=== PATIENT | male | born 1950 | race Caucasian/White ===

== ENCOUNTER → 2016-07-16 | Outpatient (CLI) | payer MEDICARE, MEDICAID ==
[~2016-07-16] MED LIST: AMLO5 PO; BACL10TA PO; HYDR-3535 PO; XANA1TAB6 PO
[2016-07-16 11:48] LABS: BICARBONATE 26.9 MEQ/L (21.0-32.0); POTASSIUM 4.2 MEQ/L (3.5-5.1)
== END ==
LOC: CLAB 10:37
PROVIDERS: ATTEND Urology
DX: N26.1 Atrophy of kidney (terminal) (principal)
CPT/HCPCS: 36415; 80048

== ENCOUNTER 2017-06-28 03:03 | Inpatient (IN) | payer MEDICARE, MEDICAID ==
[~2017-06-28] VITALS: Ht 177.8 cm; Wt 61.2 kg
[~2017-06-28 03:03] MED LIST changes: +ALPR1TAB3 PO; -AMLO5 PO; +AMLO5TAB2 PO; -XANA1TAB6 PO
[2017-06-28] MEDS ORDERED: SODIUM CHLOR 0.9% 1000 ML INJ 1,000 ML IV ONE (03:10)
[2017-06-28] MEDS ORDERED: SODIUM CHLOR 0.9% 1000 ML INJ 800 ML IV ONE (03:10)
[2017-06-28 03:11] VITALS: BP 164/98; PULSE 113; RESP 16; TEMP 99.8; O2SAT 96
[2017-06-28] MEDS ORDERED: VANCOMYCIN INJ 1,000 MG in SODIUM CHLOR 0.9% 250 ML INJ 250 ML IV ONE (03:15)
[2017-06-28] MEDS ORDERED: PIPERACIL-TAZO 3.375 GM PREMIX 50 ML IV ONE (03:15)
[2017-06-28] MEDS ORDERED: ACETAMINOPHEN 325 MG TAB PO ONE (03:15)
--- NOTE | 2017-06-28 03:24 | PD ---
HPI Chief Complaint: Chest Pain Time Seen by Provider: 03:10 Travel History International Travel<30 days: No Contact w/Intl Traveler<30days: No Traveled to known affect area: No History of Present Illness HPI 67-year-old male with history of bladder cancer status post neobladder procedure in 2006, tobaccoism, brought in by ambulance from home for evaluation of chest pain, abdominal pain, generalized malaise. The patient has had substernal and right-sided chest discomfort as well as right upper quadrant abdominal pain for about a month. He has been taking Excedrin for this pain, taking about 6-8 pills daily. Today his pain worsened. EMS noted to patient to have a fever as well as tachycardia with a jaundice appearance. The patient reports having had a cough productive of yellowish sputum with occasional hemoptysis over the last month. Chest and abdominal pain described as sharp, constant, moderate, intermittently worse at times, worse with movements and inspiration. No dyspnea. PFSH Past Medical History Blood Disorders: No Cancer: Yes (BLADDER CANCER, PROSTATE CA) Cardiovascular Problems: No Chemotherapy: No Diminished Hearing: No Endocrine: No Hypertension: Yes Neurologic: No Psychiatric: No Reproductive: No Respiratory: No Radiation Therapy: No Influenza Vaccination: No Past Surgical History AICD: No Arteriovenous Shunt: No Ear Surgery: No Endocrine Surgery: No Eye Surgery: No Genitourinary Surgery: Yes (BLADDER TUMOR REMOVED, NEOBLADDER) Gynecologic Surgery: No Insulin Pump: No Oral Surgery: Yes Pacemaker: No Prostatectomy: Yes Tonsillectomy: Yes Social History Alcohol Use: No Tobacco Use: Yes (1 PPMTH) Substance Use: No Allergies-Medications (Allergen,Severity, Reaction): Coded Allergies: morphine (Unverified Allergy, Severe, swelling, 06/28/17) Reported Meds & Prescriptions Reported Meds & Active Scripts Active Reported Amlodipine (Amlodipine Besylate) 5 Mg Tab 5 Mg PO DAILY Alprazolam 1 Mg Tab 1 Mg PO HS PRN Review of Systems Except as stated in HPI: all other systems reviewed are Neg Physical Exam Narrative GENERAL: Well-developed, thin, awake, alert, no apparent distress. SKIN: Focused skin assessment warm/dry. HEAD: Atraumatic. Normocephalic. EYES: Pupils equal and round. No scleral icterus. No injection or drainage. ENT: Mucous membranes pink and dry. NECK: Trachea midline. No JVD. CARDIOVASCULAR: Tachycardic, rate 114, regular. Distal pulses brisk and equal bilaterally. RESPIRATORY: No accessory muscle use. Clear to auscultation. Breath sounds equal bilaterally. GASTROINTESTINAL: Abdomen soft, nondistended. Moderate diffuse tenderness without peritoneal signs. Normal bowel sounds. MUSCULOSKELETAL: No obvious deformities. No clubbing. No cyanosis. No edema. NEUROLOGICAL: Awake and alert. No obvious cranial nerve deficits. Motor grossly within normal limits. Normal speech. PSYCHIATRIC: Appropriate mood and affect; insight and judgment normal. Data Data Last Documented VS Vital Signs Date Time Temp Pulse Resp B/P (MAP) Pulse Ox O2 Delivery O2 Flow Rate FiO2 06/28/17 03:11 99.8 113 16 164/98 (120) 96 Orders Orders Sepsis Workup Initiated (06/28/17 ) Complete Blood Count With Diff (06/28/17 03:10) Comprehensive Metabolic Panel (06/28/17 03:10) Prothrombin Time / Inr (Pt) (06/28/17 03:10) Act Partial Throm Time (Ptt) (06/28/17 03:10) Lactic Acid Sepsis Protocol (06/28/17 03:10) Lipase (06/28/17 03:10) Ckmb (Isoenzyme) Profile (06/28/17 03:10) Troponin I (06/28/17 03:10) Urinalysis - C+S If Indicated (06/28/17 03:10) Influenzae A/B Antigen (06/28/17 03:10) Blood Culture (06/28/17 03:10) Chest, Single Ap (06/28/17 03:10) Ecg Monitoring (06/28/17 03:10) Iv Access Insert/Monitor (06/28/17 03:10) Oximetry (06/28/17 03:10) Sodium Chlor 0.9% 1000 Ml Inj (Ns 1000 M (06/28/17 03:10) Sodium Chlor 0.9% 1000 Ml Inj (Ns 1000 M (06/28/17 03:10) Vancomycin Inj (Vancomycin Inj) (06/28/17 03:15) Piperacil-Tazo 3.375 Gm Premix (Zosyn 3. (06/28/17 03:15) Acetaminophen (Tylenol) (06/28/17 03:15) Ct Pulmonary Angiogram (06/28/17 ) Ct Abd/Pel W Iv Contrast(Rout) (06/28/17 ) Iodixanol 320 Inj (Rad Ct) (Visipaque 32 (06/28/17 04:56) Labs Laboratory Tests Test 06/28/17 03:15 White Blood Count 9.8 TH/MM3 Red Blood Count 4.06 MIL/MM3 Hemoglobin 12.7 GM/DL Hematocrit 37.3 % Mean Corpuscular Volume 91.7 FL Mean Corpuscular Hemoglobin 31.2 PG Mean Corpuscular Hemoglobin Concent 34.1 % Red Cell Distribution Width 13.0 % Platelet Count 190 TH/MM3 Mean Platelet Volume 9.4 FL Neutrophils (%) (Auto) 73.3 % Lymphocytes (%) (Auto) 12.3 % Monocytes (%) (Auto) 13.1 % Eosinophils (%) (Auto) 0.1 % Basophils (%) (Auto) 1.2 % Neutrophils # (Auto) 7.2 TH/MM3 Lymphocytes # (Auto) 1.2 TH/MM3 Monocytes # (Auto) 1.3 TH/MM3 Eosinophils # (Auto) 0.0 TH/MM3 Basophils # (Auto) 0.1 TH/MM3 CBC Comment DIFF FINAL Differential Comment Prothrombin Time 11.4 SEC Prothromb Time International Ratio 1.1 RATIO Activated Partial Thromboplast Time 39.6 SEC Blood Urea Nitrogen 18 MG/DL Creatinine 1.48 MG/DL Random Glucose 97 MG/DL Total Protein 8.8 GM/DL Albumin 2.6 GM/DL Calcium Level 8.4 MG/DL Alkaline Phosphatase 57 U/L Aspartate Amino Transf (AST/SGOT) 37 U/L Alanine Aminotransferase (ALT/SGPT) 27 U/L Total Bilirubin 2.5 MG/DL Sodium Level 136 MEQ/L Potassium Level 4.5 MEQ/L Chloride Level 104 MEQ/L Carbon Dioxide Level 24.7 MEQ/L Anion Gap 7 MEQ/L Estimat Glomerular Filtration Rate 48 ML/MIN Lactic Acid Level 1.2 mmol/L Total Creatine Kinase 53 U/L Troponin I LESS THAN 0.02 NG/ML Lipase 165 U/L MDM Medical Decision Making Medical Screen Exam Complete: Yes Emergency Medical Condition: Yes Interpretation(s) EKG: Sinus, rate 114, normal axis, normal intervals, no acute ischemic abnormality. Differential Diagnosis Sepsis, pneumonia, PE, cholangitis, hepatitis, pancreatitis, PE, ACS, cancer Narrative Course Initial vital signs show heart rate 113, blood pressure 164/90, pulse ox 96% on room air, oral temperature 99.8F. Sepsis workup initiated upon arrival to the emergency department and the patient was empirically given IV vancomycin and IV Zosyn. CBC: WBC 9.8, hemoglobin 12.7, hematocrit 37.3, platelets 190, neutrophils 73%. CMP is remarkable for creatinine 1.48, GFR 48, T bili 2.5. Cardiac enzymes are negative. Lactic acid is 1.2. Chest x-ray: Right upper lobe pulmonary consolidation. CT pulmonary angiogram: CONCLUSION: 1. Large central right lung mass/right hilar mass. Finding is highly suspicious for malignancy. The area is likely amenable to CT-guided biopsy. The mass blends with adjacent pulmonary parenchymal consolidation. 2. Markedly enlarged subcarinal lymph node. Enlarged hilar lymph nodes on the right confluent with the large lung mass. 3. No evidence of pulmonary embolus. CT abdomen pelvis: CONCLUSION: 1. Atrophic right kidney with renal calculus and moderate diffuse right hydroureter/right hydronephrosis. Left kidney within normal limits. 2. Status post cystectomy with neobladder seen in the pelvis. 3. Cholelithiasis. The patient was made aware of all findings and provided a copy of his CT reports. He will be admitted for further treatment and evaluation of sepsis, pneumonia, lung mass. Case discussed with hospitalist Dr. Vivar who will admit the patient to her service. Diagnosis Primary Impression: Sepsis Qualified Codes: A41.9 - Sepsis, unspecified organism Additional Impressions: Pneumonia Qualified Codes: J18.1 - Lobar pneumonia, unspecified organism Lung mass Admitting Information Admitting Physician Requests: Admit Jl Chang MD Jun 28, 2017 03:24
--- NOTE | 2017-06-28 03:36 | RADRPT ---
EXAM DATE/TIME: 06/28/2017 03:12 [facility] COMPARISON: No previous studies available for comparison. INDICATIONS : Fever and chest pain. MEDICAL HISTORY : Carcinoma, bladder. SURGICAL HISTORY : None. ENCOUNTER: Initial ACUITY: 1 day PAIN SCORE: 7/10 LOCATION: Bilateral chest FINDINGS: 2 AP views of the chest. Moderate-sized confluent opacity in the right upper lung indicating pulmonar y consolidation. Lungs otherwise clear. Cardiomediastinal silhouette within normal width. No evidence of pleural effusion or pneumothorax. CONCLUSION: Right upper lobe pulmonary consolidation. Recommend radiographic followup to resolution. Fransico Johnston MD on June 28, 2017 at 3:34 Board Certified Radiologist. This report was verified electronically.
[2017-06-28 04:03] LABS: AUTOMATED NEUTROPHIL # 7.2 TH/MM3 (1.8-7.7); BASOPHIL # 0.1 TH/MM3 (0-0.2); BASOPHIL % 1.2 % (0.0-2.0); EOSINOPHIL % 0.1 % (0.0-4.0); HEMATOCRIT 37.3 % (39.0-51.0); HEMOGLOBIN 12.7 GM/DL (13.0-17.0); LYMPH % 12.3 % (9.0-44.0); LYMPHOCYTE # 1.2 TH/MM3 (1.0-4.8); MEAN CELL VOLUME 91.7 FL (80.0-100.0); MEAN CORPUSCULAR HEMOGLOBIN 31.2 PG (27.0-34.0); MEAN CORPUSCULAR HGB CONC 34.1 % (32.0-36.0); MEAN PLATELET VOLUME 9.4 FL (7.0-11.0); MONO % 13.1 % (0.0-8.0); MONOCYTE # 1.3 TH/MM3 (0-0.9); NEUT % 73.3 % (16.0-70.0); PLATELET COUNT 190 TH/MM3 (150-450); RED BLOOD COUNT 4.06 MIL/MM3 (4.50-5.90); WHITE BLOOD COUNT 9.8 TH/MM3 (4.0-11.0)
[2017-06-28 04:07] LABS: INTERNATIONAL NORMALIZED RATIO 1.1 RATIO; PROTHROMBIN TIME - PATIENT 11.4 SEC (9.8-11.6)
[2017-06-28 04:21] LABS: ALBUMIN 2.6 GM/DL (3.4-5.0); ALKALINE PHOSPHATASE 57 U/L (45-117); ALT (GPT) 27 U/L (12-78); AST (GOT) 37 U/L (15-37); BICARBONATE 24.7 MEQ/L (21.0-32.0); BLOOD UREA NITROGEN 18 MG/DL (7-18); CALCIUM 8.4 MG/DL (8.5-10.1); CHLORIDE 104 MEQ/L (98-107); CREATININE 1.48 MG/DL (0.60-1.30); GLOMERULAR FILTRATION RATE 48 ML/MIN (>89); GLUCOSE,RANDOM 97 MG/DL (74-106); SODIUM (NA) 136 MEQ/L (136-145); TOTAL BILIRUBIN ADULT 2.5 MG/DL (0.2-1.0); TOTAL PROTEIN 8.8 GM/DL (6.4-8.2); TROPONIN I LESS THAN 0.02 NG/ML (0.02-0.05)
[2017-06-28] MEDS ORDERED: IODIXANOL 320 MG/ML 10 ML VIAL (for Rad CT) IVCONTRAST ONE (04:56)
--- NOTE | 2017-06-28 05:10 | RADRPT ---
EXAM DATE/TIME: 06/28/2017 04:40 [facility] COMPARISON: CHEST SINGLE AP, June 28, 2017, 3:12. INDICATIONS : Chest pain. IV CONTRAST: 100 cc Visipaque (iodixanol) IV ; Cumulative dose for multiple exams. RADIATION DOSE: 15.63 CTDIvol (mGy) MEDICAL HISTORY : Hypertension. Carcinoma, bladder. Carcinoma, prostate. SURGICAL HISTORY : Cholecystectomy. Cystectomy ENCOUNTER: Initial ACUITY: 1 month PAIN SCALE: 6/10 LOCATION: Bilateral chest TECHNIQUE: Volumetric scanning of the chest was performed using a pulmonary embolism protocol MIP images were re constructed. Using automated exposure control and adjustment of the mA and/or kV according to patien t size, radiation dose was kept as low as reasonably achievable to obtain optimal diagnostic quality images. DICOM format image data is available electronically for review and comparison. Follow-up recommendations for detected pulmonary nodules are based at a minimum on nodule size and pa tient risk factors according to Fleischner Society Guidelines. FINDINGS: PULMONARY ARTERIES: No filling defects are seen in the pulmonary arteries through the segmental level. LUNGS: Central right lung/perihilar mass. The margins of the mass are poorly defined as it blends with adjac ent low density pulmonary consolidation. The combined density measures 6.5 x 6.4 cm. Adjacent right m id to upper lung groundglass opacity noted. Mild bilateral pulmonary parenchymal emphysema. Left lung clear. PLEURAE: There is no pleural thickening or pleural effusion. MEDIASTINUM: Enlarged right hilar lymph nodes confluent with the right lung mass. Enlarged subcarinal lymph node m easuring 4.8 x 3.6 cm. MUSCULOSKELETAL: Within normal limits for patient age. MISCELLANEOUS: Atrophic right kidney. CONCLUSION: 1. Large central right lung mass/right hilar mass. Finding is highly suspicious for malignancy. The a joel is likely amenable to CT-guided biopsy. The mass blends with adjacent pulmonary parenchymal conso lidation. 2. Markedly enlarged subcarinal lymph node. Enlarged hilar lymph nodes on the right confluent with th e large lung mass. 3. No evidence of pulmonary embolus. Fransico Johnston MD on June 28, 2017 at 5:00 Board Certified Radiologist. This report was verified electronically.
--- NOTE | 2017-06-28 05:17 | RADRPT ---
EXAM DATE/TIME: 06/28/2017 04:40 [facility] COMPARISON: No previous studies available for comparison. INDICATIONS : Right upper quadrant pain. IV CONTRAST: 100 cc Visipaque (iodixanol) IV ; Cumulative dose for multiple exams. ORAL CONTRAST: No oral contrast ingested. RADIATION DOSE: 9.97 CTDIvol (mGy) MEDICAL HISTORY : Hypertension. Carcinoma, bladder. Carcinoma, prostate. SURGICAL HISTORY : Cholecystectomy. Cystectomy ENCOUNTER: Initial ACUITY: 1 month PAIN SCALE: 6/10 LOCATION: Right upper quadrant TECHNIQUE: Volumetric scanning of the abdomen and pelvis was performed. Using automated exposure control and ad justment of the mA and/or kV according to patient size, radiation dose was kept as low as reasonably achievable to obtain optimal diagnostic quality images. DICOM format image data is available electro nically for review and comparison. FINDINGS: LOWER LUNGS: The visualized lower lungs are clear. LIVER: Multiple calcified gallstones. No pericholecystic inflammatory changes. Nonspecific enhancing gallbla dder wall diffusely. No gross pericholecystic inflammatory changes. Liver is homogeneous and within n ormal limits. SPLEEN: Normal size without lesion. PANCREAS: Within normal limits. KIDNEYS: Atrophic right kidney with 6 mm midpole calculus. Moderate right hydronephrosis and right diffuse hyd roureter. 2.9 cm cyst in the lower pole of the left kidney. Left kidney otherwise within normal limit s. No evidence of hydronephrosis. ADRENAL GLANDS: Within normal limits. VASCULAR: Diffuse aortoiliac calcification. Aortic diameter within normal limits. BOWEL/MESENTERY: Multiple clonic diverticula. No evidence of acute diverticulitis. Postsurgical findings in the distal small bowel. Apparent neobladder is seen in the midline pelvis. No evidence of bowel dilatation. No free air or free fluid. ABDOMINAL WALL: Within normal limits. RETROPERITONEUM: There is no lymphadenopathy. BLADDER: Apparent neobladder in the pelvis. REPRODUCTIVE: Within normal limits. INGUINAL: There is no lymphadenopathy or hernia. MUSCULOSKELETAL: Within normal limits for patient age. CONCLUSION: 1. Atrophic right kidney with renal calculus and moderate diffuse right hydroureter/right hydronephro sis. Left kidney within normal limits. 2. Status post cystectomy with neobladder seen in the pelvis. 3. Cholelithiasis. Fransico Johnston MD on June 28, 2017 at 5:08 Board Certified Radiologist. This report was verified electronically.
[2017-06-28] MEDS ORDERED: SODIUM CHLORIDE 0.9% FLUSH 10 ML FLUSH IV FLUSH PRN (05:45)
[2017-06-28] MEDS ORDERED: ONDANSETRON HCL 4 MG/2 ML VIAL IVP PRN (05:45)
[2017-06-28] MEDS ORDERED: MAGNESIUM HYDROXIDE SUSP 30 ML CUP PO PRN (05:45)
[2017-06-28] MEDS ORDERED: ALPRAZolam 1 MG TAB PO PRN (05:45)
[2017-06-28] MEDS ORDERED: SENNOSIDES 8.6 MG TAB PO PRN (05:45)
[2017-06-28] MEDS ORDERED: LACTULOSE SYRUP 20 GM/30 ML CUP PO PRN (05:45)
[2017-06-28] MEDS ORDERED: BISACODYL 10 MG SUPP RECTAL PRN (05:45)
[2017-06-28] MEDS ORDERED: Vancomycin Consult Pharmacy 1 EA OTHER SCH (05:45)
[2017-06-28] MEDS: SODIUM CHLOR 0.9% 1000 ML INJ 1,000 ML IV SCH ×2 (05:52→16:17)
[2017-06-28 07:37] VITALS: BP 156/103; PULSE 92; RESP 18; TEMP 98.4; O2SAT 96
[2017-06-28 08:00] VITALS: BP_SYST 130; BP_SYST 97; BP_DIAS 55; BP_DIAS 78; PULSE 100; PULSE 83; RESP 18; RESP 22; TEMP 98.1; TEMP 98.3; O2SAT 93; O2SAT 96
[2017-06-28] MEDS: SODIUM CHLORIDE 0.9% FLUSH 10 ML FLUSH IV FLUSH SCH ×2 (08:50→21:00)
[2017-06-28] MEDS: DOCUSATE SODIUM 50 MG/SENNA 8.6 MG TAB PO SCH ×2 (08:51→21:00)
[2017-06-28] MEDS: HYDROmorphone HCL PF 2 MG/ML VIAL IV PRN ×3 (09:48→19:57)
[2017-06-28 12:00] VITALS: BP 137/79; PULSE 103; RESP 20; TEMP 100.4; O2SAT 97
[2017-06-28] MEDS: ACETAMINOPHEN 325 MG TAB PO PRN (13:19)
--- NOTE | 2017-06-28 15:36 | HHI.HP ---
[facility] Luis Daniel Zamorano, DO Admission Diagnosis Sepsis, pneumonia, lung mass Diagnoses: (1) Sepsis (2) Lung mass (3) Pneumonia Chief Complaint: chest pain cough and RUQ abd pain Travel History International Travel<30 Days: No Contact w/Intl Traveler <30 Da: No Traveled to Known Affected Are: No History of Present Illness Written by Darline Christianson, acting as scribe for Dr. Arce on 06/28/17 at 15:36. This is a 67-year-old male patient with past medical history which includes hypertension, depression, bladder cancer with cystectomy prostatectomy and neobladder procedure in 2006, tobaccoism, brought in to the ER by ambulance from home on 06/27/18 for evaluation of chest pain, abdominal pain, generalized malaise. The patient reports midsternal chest pain x 6 weeks. Patient reports pain is worse with cough. Patient also reports right upper quadrant abdominal pain for about 6 weeks. Nausea but no vomiting and decrease appetite . Patient believes he has lost 13 pounds over this 6 week time frame. Patient has also had an intermitted headache for which he was taking Excedrin 6-8 pills daily. Chest and abdominal pain described as sharp, constant, moderate, intermittently worse at times, worse with movements, coughing and inspiration. Patient also endorses fevers and chills at home. Review of Systems Constitutional: COMPLAINS OF: Fatigue, Fever Respiratory: COMPLAINS OF: Cough, Hemoptysis, Sputum production Cardiovascular: COMPLAINS OF: Chest pain Gastrointestinal: COMPLAINS OF: Abdominal pain Except as stated in HPI: all other systems reviewed are Neg Past Family Social History Past Medical History hypertension, depression, bladder cancer with neobladder procedure in 2006, tobaccoism Past Surgical History Neobladder 2007 Prostatectomy Tonsillectomy Reported Medications Amlodipine (Amlodipine Besylate) 5 Mg Tab 5 Mg PO DAILY Alprazolam 1 Mg Tab 1 Mg PO HS PRN Allergies: Coded Allergies: morphine (Unverified Allergy, Severe, swelling, 06/28/17) Active Ordered Medications Current Medications Medications (Trade) Dose Ordered Sig/Wali Route Start Time Stop Time Status Last Admin Pharmacy Profile Note 0 ml @ 0 mls/hr UNSCH OTHER 06/28/17 05:45 Cefepime HCl 1000 mg/Sodium Chloride 100 ml @ 200 mls/hr Q12H IV 06/28/17 18:00 Sodium Chloride 1,000 ml @ 100 mls/hr Q10H IV 06/28/17 05:36 06/28/17 05:52 (NS Flush) 2 ml UNSCH PRN IV FLUSH 06/28/17 05:45 (NS Flush) 2 ml BID IV FLUSH 06/28/17 09:00 (Zofran Inj) 4 mg Q6H PRN IVP 06/28/17 05:45 (Tylenol) 650 mg Q6H PRN PO 06/28/17 05:45 06/28/17 13:19 (Rake 5-325 Mg) 1 tab Q4H PRN PO 06/28/17 05:45 (Dilaudid Pf Inj) 1 mg Q3H PRN IV 06/28/17 06:00 06/28/17 09:48 (Radha-Colace) 1 tab BID PO 06/28/17 09:00 (Milk Of Magnesia Liq) 30 ml Q12H PRN PO 06/28/17 05:45 (Senokot) 17.2 mg Q12H PRN PO 06/28/17 05:45 (Dulcolax Supp) 10 mg DAILY PRN RECTAL 06/28/17 05:45 (Lactulose Liq) 30 ml DAILY PRN PO 06/28/17 05:45 (Xanax) 1 mg HS PRN PO 06/28/17 05:45 Vancomycin HCl 1000 mg/Sodium Chloride 250 ml @ 250 mls/hr Q24H IV 06/29/17 04:00 Miscellaneous Information SPECIFIC LAB TO BE JESSICA... ONCE ONCE .XX 07/01/17 03:45 07/01/17 03:46 Metronidazole 100 ml @ 100 mls/hr Q8H IV 06/28/17 18:00 (SoluMEDROL INJ) 40 mg Q8HR IV PUSH 06/28/17 16:00 UNV Family History Mother secondary to cancer unknown type Brother secondary to cancer also unknown type Social History Tobacco use quit 4 weeks ago. Smoked 1 PPD for 40 + years quit drinking ETOH in denies illicit drug use Physical Exam Vital Signs Vital Signs Date Time Temp Pulse Resp B/P (MAP) Pulse Ox O2 Delivery O2 Flow Rate FiO2 06/28/17 12:00 100.4 103 20 137/79 (98) 97 06/28/17 08:00 98.1 100 22 130/78 (95) 96 06/28/17 07:37 98.4 92 18 156/103 (120) 96 Room Air 06/28/17 03:11 99.8 113 16 164/98 (120) 96 Physical Exam GENERAL: This is a thin, well-developed patient, in no apparent distress. SKIN: No rashes, ecchymoses or lesions. Cool and dry. HEAD: Atraumatic. Normocephalic. No temporal or scalp tenderness. EYES: Extraocular motions intact. No scleral icterus. No injection or drainage. NECK: Trachea midline. No JVD or lymphadenopathy. Supple, nontender, no meningeal signs. CARDIOVASCULAR: Regular rate and rhythm RESPIRATORY: Decreased air movement R side with scattered wheezing GASTROINTESTINAL: Abdomen soft, non-tender, nondistended. No hepato-splenomegaly , or palpable masses. No guarding. MUSCULOSKELETAL: Extremities without clubbing, cyanosis, or edema. No joint tenderness, effusion, or edema noted. No calf tenderness. Negative Homans sign bilaterally. NEUROLOGICAL: Awake and alert. No focal deficits. Motor and sensory grossly within normal limits. 4-5 out of 5 muscle strength in all muscle groups. Normal speech. Laboratory Laboratory Tests Test 06/28/17 03:15 White Blood Count 9.8 Red Blood Count 4.06 Hemoglobin 12.7 Hematocrit 37.3 Mean Corpuscular Volume 91.7 Mean Corpuscular Hemoglobin 31.2 Mean Corpuscular Hemoglobin Concent 34.1 Red Cell Distribution Width 13.0 Platelet Count 190 Mean Platelet Volume 9.4 Neutrophils (%) (Auto) 73.3 Lymphocytes (%) (Auto) 12.3 Monocytes (%) (Auto) 13.1 Eosinophils (%) (Auto) 0.1 Basophils (%) (Auto) 1.2 Neutrophils # (Auto) 7.2 Lymphocytes # (Auto) 1.2 Monocytes # (Auto) 1.3 Eosinophils # (Auto) 0.0 Basophils # (Auto) 0.1 CBC Comment DIFF FINAL Differential Comment Prothrombin Time 11.4 Prothromb Time International Ratio 1.1 Activated Partial Thromboplast Time 39.6 Blood Urea Nitrogen 18 Creatinine 1.48 Random Glucose 97 Total Protein 8.8 Albumin 2.6 Calcium Level 8.4 Alkaline Phosphatase 57 Aspartate Amino Transf (AST/SGOT) 37 Alanine Aminotransferase (ALT/SGPT) 27 Total Bilirubin 2.5 Sodium Level 136 Potassium Level 4.5 Chloride Level 104 Carbon Dioxide Level 24.7 Anion Gap 7 Estimat Glomerular Filtration Rate 48 Lactic Acid Level 1.2 Total Creatine Kinase 53 Troponin I LESS THAN 0.02 Lipase 165 Date/Time Source Procedure Growth Status 06/28/17 03:15 Blood Peripheral Aerobic Blood Culture Pending Received 06/28/17 03:15 Blood Peripheral Anaerobic Blood Culture Pending Received Result Diagram: 06/28/1731406/28/17314 Imaging Last Impressions Chest X-Ray 06/28/17309 Signed Impressions: Service Date/Time: Wednesday, June 28, 2017 03:12 - CONCLUSION: Right upper lobe pulmonary consolidation. Recommend radiographic followup to resolution. Fransico Johnston MD CT Angiography 06/28/17 0000 Signed Impressions: Service Date/Time: Wednesday, June 28, 2017 04:40 - CONCLUSION: 1. Large central right lung mass/right hilar mass. Finding is highly suspicious for malignancy. The area is likely amenable to CT-guided biopsy. The mass blends with adjacent pulmonary parenchymal consolidation. 2. Markedly enlarged subcarinal lymph node. Enlarged hilar lymph nodes on the right confluent with the large lung mass. 3. No evidence of pulmonary embolus. Fransico Johnston MD Abdomen/Pelvis CT 06/28/17 0000 Signed Impressions: Service Date/Time: Wednesday, June 28, 2017 04:40 - CONCLUSION: 1. Atrophic right kidney with renal calculus and moderate diffuse right hydroureter/right hydronephrosis. Left kidney within normal limits. 2. Status post cystectomy with neobladder seen in the pelvis. 3. Cholelithiasis. MD David Stoveri VTE Risk Assessment Rigorini VTE Risk Assessment: Mod/High Risk (score >= 2) Caprini Risk Assessment Model Point Value = 1 Point Value = 2 Point Value = 3 Point Value = 5 Age 41-60 Minor surgery BMI > 25 kg/m2 Swollen legs Varicose veins or History of unexplained or recurrent spontaneous Oral contraceptives or hormone replacement Sepsis (< 1 month) Serious lung disease, including pneumonia (< 1 month) Abnormal pulmonary function Acute myocardial infarction Congestive heart failure (< 1 month) History of inflammatory bowel disease Medical patient at bed rest Age 61-74 Arthroscopic surgery Major open surgery (> 45 min) Laparoscopic surgery (> 45 min) Malignancy Confined to bed (> 72 hours) Immobilizing plaster cast Central venous access Age >= 75 History of VTE Family history of VTE Factor V Leiden Prothrombin [id number] Lupus anticoagulant Anticardiolipin antibodies Elevated serum homocysteine Heparin-induced thrombocytopenia Other congenital or acquired thrombophilia Stroke (< 1 month) Elective arthroplasty Hip, pelvis, or leg fracture Acute spinal cord injury (< 1 month) Prophylaxis Regimen Total Risk Factor Score Risk Level Prophylaxis Regimen 0-1 Low Early ambulation 2 Moderate Order ONE of the following: *Sequential Compression Device (SCD) *Heparin 5000 units SQ BID 3-4 Higher Order ONE of the following medications: *Heparin 5000 units SQ TID *Enoxaparin/Lovenox 40 mg SQ daily (WT < 150 kg, CrCl > 30 mL/min) *Enoxaparin/Lovenox 30 mg SQ daily (WT < 150 kg, CrCl > 10-29 mL/min) *Enoxaparin/Lovenox 30 mg SQ BID (WT < 150 kg, CrCl > 30 mL/min) AND/OR *Sequential Compression Device (SCD) 5 or more Highest Order ONE of the following medications: *Heparin 5000 units SQ TID (Preferred with Epidurals) *Enoxaparin/Lovenox 40 mg SQ daily (WT < 150 kg, CrCl > 30 mL/min) *Enoxaparin/Lovenox 30 mg SQ daily (WT < 150 kg, CrCl > 10-29 mL/min) *Enoxaparin/Lovenox 30 mg SQ BID (WT < 150 kg, CrCl > 30 mL/min) AND *Sequential Compression Device (SCD) Assessment and Plan Problem List: (1) Sepsis ICD Code: A41.9 - Sepsis, unspecified organism Status: Acute (2) Lung mass ICD Code: R91.8 - Other nonspecific abnormal finding of lung field Status: Acute (3) Pneumonia ICD Code: J18.9 - Pneumonia, unspecified organism Status: Acute (4) HTN (hypertension) ICD Code: I10 - Essential (primary) hypertension (5) RAYMON (acute kidney injury) ICD Code: N17.9 - Acute kidney failure, unspecified Assessment and Plan PNA Lung mass Sepsis by criteria This is a 67-year-old male patient with past medical history which includes hypertension, depression, bladder cancer with neobladder procedure in 2006, tobaccoism, brought in by ambulance from home for evaluation of chest pain, abdominal pain, generalized malaise. The patient has had substernal and right- sided chest discomfort as well as right upper quadrant abdominal pain for about a month. Patient presented to the ER with jaundice appearance. The patient reports having had a cough productive of yellowish sputum with occasional hemoptysis over the last month. T bili 2.5. Cardiac enzymes are negative. Lactic acid is 1.2. Chest x-ray: Right upper lobe pulmonary consolidation. CT pulmonary angiogram: CONCLUSION: 1. Large central right lung mass/right hilar mass. Finding is highly suspicious for malignancy. The area is likely amenable to CT-guided biopsy. The mass blends with adjacent pulmonary parenchymal consolidation. 2. Markedly enlarged subcarinal lymph node. Enlarged hilar lymph nodes on the right confluent with the large lung mass. 3. No evidence of pulmonary embolus. CT abdomen pelvis: CONCLUSION: 1. Atrophic right kidney with renal calculus and moderate diffuse right hydroureter/right hydronephrosis. Left kidney within normal limits. 2. Status post cystectomy with neobladder seen in the pelvis. 3. Cholelithiasis. Patient was given IV vancomycin and Zosyn in the ER IV abx Vancomycin with pharmacy to dose and Cefepime IV add Flagyl Rake PO and Dilaudid IV as needed for pain Consult IR for CT guided biopsy, consider consult to oncology once bx resulted sputum culture requested Start patient on Solu-medrol 40 mg IV Q8H RAYMON IVF for hydration recheck BMP in AM HTN hold home amlodipine due to possible hypotension with sepsis monitor BP DVT prophylaxis with SCDs Written by Darline Christianson, acting as scribe for Dr. Arce on 06/28/17 at 15:36. This note was transcribed by scribe Darline Christianson. I, Dr. Red Chaidez personally performed the history, physical exam, and medical decision making; and confirmed the accuracy of the information in the transcribed note. Authenticated by Dr. Red Chaidez on Jun 28, 2017 15:48 Problem Qualifiers (1) Sepsis: Qualified Codes: A41.9 - Sepsis, unspecified organism (2) Pneumonia: Qualified Codes: J18.1 - Lobar pneumonia, unspecified organism Darline Christianson Jun 28, 2017 15:36 Red Marquez MD Jun 28, 2017 15:48
[2017-06-28 16:00] VITALS: BP 119/67; PULSE 94; RESP 20; TEMP 99; O2SAT 97
[2017-06-28] MEDS: methylPREDNISolone SOD SUCC 40 MG/1 ML VIAL IV PUSH SCH ×2 (16:17→22:32)
[2017-06-28] MEDS: metroNIDAZOLE 500 MG INJ 100 ML IV SCH (16:39)
--- NOTE | 2017-06-28 16:51 | EKG ---
Date Performed: 06/28/2017 Time Performed: 03:12:09 PTAGE: 67 years EKG: SINUS TACHYCARDIA POSSIBLE LEFT ATRIAL ENLARGEMENT Compared to previous tracing, atrial abn ormality is more promient. Otherwise no significant change ABNORMAL RHYTHM ECG PREVIOUS TRACING : 12/23/2006 11.24 DOCTOR: José Antonio Chapa Interpretating Date/Time 06/28/2017 16:49:55
--- NOTE | 2017-06-28 16:52 | EKG ---
Date Performed: 06/28/2017 Time Performed: 08:58:28 PTAGE: 67 years EKG: Sinus rhythm WITH FREQUENT SUPRAVENTRICULAR PREMATURE COMPLEXES POSSIBLE LEFT ATRIAL ENLARGEMENT Compared to prev ious tracing, PACs are new ABNORMAL RHYTHM ECG PREVIOUS TRACING : 06/28/2017 03.12 DOCTOR: José Antonio Chapa Interpretating Date/Time 06/28/2017 16:50:07
[2017-06-28] MEDS ORDERED: ONDANSETRON HCL 4 MG/2 ML VIAL IV PUSH STA (17:05)
[2017-06-28] MEDS: CEFEPIME INJ 1,000 MG in SODIUM CHLORIDE 0.9% INJ 100 ML IV SCH (18:30)
[2017-06-29] VITALS (7 sets, daily range): BP systolic 104–118; BP diastolic 59–77; PULSE 57–93; RESP 18–23; TEMP 96.9–97.8; O2SAT 95–97
[2017-06-29] MEDS: ACETAMINOPHEN/HYDROcodone 325 MG/5 MG TAB PO PRN (00:54)
[2017-06-29] MEDS: metroNIDAZOLE 500 MG INJ 100 ML IV SCH ×3 (01:49→21:17)
[2017-06-29] MEDS: SODIUM CHLOR 0.9% 1000 ML INJ 1,000 ML IV SCH ×3 (03:55→21:36)
[2017-06-29] MEDS: VANCOMYCIN 1,000 MG/NS 250 ML IV SCH ×2 (03:56)
[2017-06-29 05:21] LABS: AUTOMATED NEUTROPHIL # 6.7 TH/MM3 (1.8-7.7); BASOPHIL % 0.3 % (0.0-2.0); HEMATOCRIT 35.2 % (39.0-51.0); HEMOGLOBIN 11.8 GM/DL (13.0-17.0); LYMPH % 11.7 % (9.0-44.0); LYMPHOCYTE # 0.9 TH/MM3 (1.0-4.8); MEAN CORPUSCULAR HEMOGLOBIN 31.1 PG (27.0-34.0); MEAN CORPUSCULAR HGB CONC 33.5 % (32.0-36.0); MEAN PLATELET VOLUME 9.5 FL (7.0-11.0); MONO % 3.4 % (0.0-8.0); MONOCYTE # 0.3 TH/MM3 (0-0.9); NEUT % 84.6 % (16.0-70.0); PLATELET COUNT 179 TH/MM3 (150-450); RED BLOOD COUNT 3.78 MIL/MM3 (4.50-5.90); RED CELL DISTRIBUTION WIDTH 13.1 % (11.6-17.2)
[2017-06-29] MEDS: methylPREDNISolone SOD SUCC 40 MG/1 ML VIAL IV PUSH SCH ×2 (05:27→14:32)
[2017-06-29] MEDS: CEFEPIME INJ 1,000 MG in SODIUM CHLORIDE 0.9% INJ 100 ML IV SCH ×2 (05:27→18:39)
[2017-06-29 05:31] LABS: ALBUMIN 2.2 GM/DL (3.4-5.0); AST (GOT) 27 U/L (15-37); BICARBONATE 20.1 MEQ/L (21.0-32.0); BLOOD UREA NITROGEN 20 MG/DL (7-18); CALCIUM 8.6 MG/DL (8.5-10.1); CHLORIDE 108 MEQ/L (98-107); CREATININE 1.26 MG/DL (0.60-1.30); GLOMERULAR FILTRATION RATE 57 ML/MIN (>89); GLUCOSE,RANDOM 135 MG/DL (74-106); SODIUM (NA) 139 MEQ/L (136-145)
[2017-06-29 05:33] LABS: ALKALINE PHOSPHATASE 51 U/L (45-117); ALT (GPT) 23 U/L (12-78); TOTAL PROTEIN 7.7 GM/DL (6.4-8.2)
--- NOTE | 2017-06-29 08:32 | MB ---
cc: Danay Briceño MD, DATE: 06/28/2017 REFERRING PHYSICIAN: Dr. Gonzalez CHIEF COMPLAINT: Dr. Gonzalez requests a consultation for Mr. Alex regarding history of bladder cancer and new right lung mass with mediastinal adenopathy. HISTORY OF PRESENT ILLNESS: Mr. Alex is a 67-year-old man with history of bladder cancer, status post neobladder procedure in 2006. He has been in remission ever since. He was brought in by ambulance with chest pain, abdominal pain, nausea, vomiting, generalized malaise. He started on early in the week and could not put any food into his stomach. Apparently, he has been having headaches, taking Excedrin, which he did not believe had aspirin. In the emergency room, he was found to have mild normocytic anemia with hemoglobin of 12.7, BUN of 18, creatinine 1.4, calcium is low, total bilirubin is 2.5. CT angiogram showed a large central right lung mass/right hilar mass suspicious for malignancy. There is marked large subcarinal lymph node. The hilar lymph node seems to be confluent with the large mass. There is no evidence of pulmonary embolism. Hematology Oncology is consulted for the lung mass. This is suspicious for a second primary bronchogenic carcinoma. He is an active smoker. He complains of chest pain and was short of breath. He has panic attacks. He feels that the pain medication relaxes him and alleviates his symptoms. He is trying to avoid his pain medications which he takes for his back. 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 However, the chest discomfort became progressively worse. More concerning is persistent nausea. He has had vomiting. He was able to eat in the emergency room, but at the time of the consultation was having nausea recur. He has had some headaches. I have no imaging of his LIPSTICK MOLDER. He is afebrile. Denies any overt bleeding. He is pleased with his surgery with the neobladder. PAST MEDICAL HISTORY: Bladder cancer, hypertension, persistent nausea, chest pain, chronic tobacco use. PAST SURGICAL HISTORY: Bladder tumor removed with neobladder prostatectomy, tonsillectomy. SOCIAL HISTORY: He is . He has 2 daughters in the area. He smokes a pack a day. Denies any alcohol or illicit drug use. ALLERGIES: MORPHINE. CURRENT MEDICATIONS: Include alprazolam, amlodipine, vancomycin, cefepime, metronidazole, Solu-Medrol, Dilaudid, Tylenol. PHYSICAL EXAMINATION: VITAL SIGNS: Temperature 100.4, heart rate 94, respiratory rate 20, blood pressure 119/67, saturation 97%. GENERAL: Mr. Alxe is a well developed, slender man. He has some bitemporal wasting. Oropharynx is dry. NECK: Supple. LUNGS: With wheezing and rhonchi on the right side. CARDIOVASCULAR: Reveals tachycardia. ABDOMEN: Benign. LOWER EXTREMITIES: With no edema. NEUROLOGIC: Nonfocal. LABORATORY DATA: Blood cultures are pending. Labs significant for the above. ASSESSMENT AND PLAN: Mr. Alex is a 67-year-old man with history of bladder cancer, status post bladder resection and neobladder procedure. He comes in with symptoms of anorexia, nausea, vomiting, general malaise and chest pain. Imaging study shows a right lung mass, hilar mass and mediastinal adenopathy, mainly subcarinal lymphadenopathy. We discussed the above findings, suggest an unresectable bronchogenic carcinoma. Type of lung cancer would depend on the histologic confirmation. I recommend a CT-guided lung biopsy to establish a diagnosis. In the meantime, antiemetic therapy is provided. I will obtain MRI of the brain to rule out LIPSTICK MOLDER metastatic disease. I am concerned about a small cell lung cancer, which is highly associated with smoking. A propensity of small cell lung cancer increases in LIPSTICK MOLDER metastatic disease. We will obtain MRI of the brain to rule out LIPSTICK MOLDER metastatic disease. We discussed otherwise a followup on an outpatient basis. Proton pump inhibitor will be offered. Pending pathology, further recommendations to follow. MD MARCIA Estrada/LUKE , 05:20 PM , 06:02 PM
[2017-06-29] MEDS: DOCUSATE SODIUM 50 MG/SENNA 8.6 MG TAB PO SCH ×2 (08:33→21:17)
[2017-06-29] MEDS: SODIUM CHLORIDE 0.9% FLUSH 10 ML FLUSH IV FLUSH SCH ×2 (08:33→21:15)
[2017-06-29] MEDS: ONDANSETRON HCL 4 MG/2 ML VIAL IV PUSH PRN ×2 (08:39→21:14)
[2017-06-29] MEDS ORDERED: PANTOPRAZOLE SOD 40 MG DELAYED RELEASE TAB PO SCH (09:00)
[2017-06-29] MEDS ORDERED: GADODIAMIDE PF 287 MG/ML 5 ML VIAL (for RAD MRI) IV PUSH ONE (09:53)
[2017-06-29] MEDS: CALCIUM CARBONATE 500 MG CHEWABLE TAB CHEW PRN ×2 (10:22→21:14)
--- NOTE | 2017-06-29 10:26 | HHI.PR ---
Subjective Remarks Follow up for lung mass, chest pain, abdominal pain. The patient complains of heartburn this morning, requesting medication for pain. He states he has been taking 6-8 tablets of excedrin daily at home for headaches, chest pains, and body aches. Denies any nausea/vomiting, hematemesis, melena, or hematochezia. He is tolerating oral intake. He reports continued diffuse constant chest pain, relieved by pain medication. He reports mild shortness of breath. Denies cough. No fevers overnight. Denies any other medical complaints at this time. Objective Vitals Vital Signs Date Time Temp Pulse Resp B/P (MAP) Pulse Ox O2 Delivery O2 Flow Rate FiO2 06/29/17 07:50 97.3 57 23 104/62 (76) 97 06/29/17 03:21 97.6 62 18 116/59 (78) 95 06/29/17 01:05 97.4 93 18 110/63 (79) 96 06/28/17 16:00 99.0 94 20 119/67 (84) 97 06/28/17 12:00 100.4 103 20 137/79 (98) 97 I/O 06/28/17 06/28/17 06/28/17 06/29/17 06/29/17 06/29/17 07:00 15:00 23:00 07:00 15:00 23:00 Intake Total 1300 ml 1000 ml Balance 1300 ml 1000 ml Intake IV Total 1300 ml 1000 ml Result Diagram: 06/29/17 0412 06/29/17 0412 Imaging Last Impressions Brain MRI 06/29/17 0600 Signed Impressions: Service Date/Time: Thursday, June 29, 2017 09:21 - CONCLUSION: 1. No evidence of acute intracranial pathology. Chronic ischemic changes as above. Milind Molina MD Chest X-Ray 06/28/17 0310 Signed Impressions: Service Date/Time: Wednesday, June 28, 2017 03:12 - CONCLUSION: Right upper lobe pulmonary consolidation. Recommend radiographic followup to resolution. Fransico Johnston MD CT Angiography 06/28/17 0000 Signed Impressions: Service Date/Time: Wednesday, June 28, 2017 04:40 - CONCLUSION: 1. Large central right lung mass/right hilar mass. Finding is highly suspicious for malignancy. The area is likely amenable to CT-guided biopsy. The mass blends with adjacent pulmonary parenchymal consolidation. 2. Markedly enlarged subcarinal lymph node. Enlarged hilar lymph nodes on the right confluent with the large lung mass. 3. No evidence of pulmonary embolus. Fransico Johnston MD Abdomen/Pelvis CT 06/28/17 0000 Signed Impressions: Service Date/Time: Wednesday, June 28, 2017 04:40 - CONCLUSION: 1. Atrophic right kidney with renal calculus and moderate diffuse right hydroureter/right hydronephrosis. Left kidney within normal limits. 2. Status post cystectomy with neobladder seen in the pelvis. 3. Cholelithiasis. Fransico Johnston MD Objective Remarks GENERAL: Thin male patient in NAD. Sitting upright in bed eating breakfast. SKIN: Warm and dry. No rash. HEENT: Normocephalic. Atraumatic. Pupils equal and round. Mucous membranes pink and moist. NECK: Supple. Trachea midline. CARDIOVASCULAR: Regular rate and rhythm. No murmur appreciated. RESPIRATORY: No accessory muscle use. Clear to auscultation. Breath sounds equal bilaterally. GASTROINTESTINAL: Abdomen soft, non-tender, nondistended. Normoactive bowel sounds x4. MUSCULOSKELETAL: No obvious deformities. Extremities without clubbing, cyanosis , or edema. NEUROLOGICAL: Awake and alert. No obvious cranial nerve deficits. Motor grossly within normal limits. Normal speech. PSYCHIATRIC: Appropriate mood and affect; insight and judgment normal. Medications and IVs Current Medications Medications (Trade) Dose Ordered Sig/Wali Route Start Time Stop Time Status Last Admin Pharmacy Profile Note 0 ml @ 0 mls/hr UNSCH OTHER 06/28/17 05:45 Cefepime HCl 1000 mg/Sodium Chloride 100 ml @ 200 mls/hr Q12H IV 06/28/17 18:00 06/29/17 05:27 Sodium Chloride 1,000 ml @ 100 mls/hr Q10H IV 06/28/17 05:36 06/29/17 03:55 (NS Flush) 2 ml UNSCH PRN IV FLUSH 06/28/17 05:45 (NS Flush) 2 ml BID IV FLUSH 06/28/17 09:00 (Zofran Inj) 4 mg Q6H PRN IVP 06/28/17 05:45 (Tylenol) 650 mg Q6H PRN PO 06/28/17 05:45 06/28/17 13:19 (Riparius 5-325 Mg) 1 tab Q4H PRN PO 06/28/17 05:45 06/29/17 00:54 (Dilaudid Pf Inj) 1 mg Q3H PRN IV 06/28/17 06:00 06/28/17 19:57 (Radha-Colace) 1 tab BID PO 06/28/17 09:00 (Milk Of Magnesia Liq) 30 ml Q12H PRN PO 06/28/17 05:45 (Senokot) 17.2 mg Q12H PRN PO 06/28/17 05:45 (Dulcolax Supp) 10 mg DAILY PRN RECTAL 06/28/17 05:45 (Lactulose Liq) 30 ml DAILY PRN PO 06/28/17 05:45 (Xanax) 1 mg HS PRN PO 06/28/17 05:45 Vancomycin HCl 1000 mg/Sodium Chloride 250 ml @ 250 mls/hr Q24H IV 06/29/17 04:00 06/29/17 03:56 Miscellaneous Information SPECIFIC LAB TO BE JESSICA... ONCE ONCE .XX 07/01/17 03:45 07/01/17 03:46 Metronidazole 100 ml @ 100 mls/hr Q8H IV 06/28/17 18:00 06/29/17 10:23 (SoluMEDROL INJ) 40 mg Q8HR IV PUSH 06/28/17 16:00 06/29/17 05:27 (Zofran Inj) 4 mg Q6HR PRN IV PUSH 06/28/17 17:15 06/29/17 08:39 (Protonix) 40 mg DAILY PO 06/29/17 09:00 06/29/17 10:22 (Tums Chew) 500 mg Q6H PRN CHEW 06/29/17 09:00 06/29/17 10:22 A/P Problem List: (1) Sepsis ICD Code: A41.9 - Sepsis, unspecified organism Status: Acute (2) Lung mass ICD Code: R91.8 - Other nonspecific abnormal finding of lung field Status: Acute (3) Pneumonia ICD Code: J18.9 - Pneumonia, unspecified organism Status: Acute Assessment and Plan 67-year-old male patient with past medical history which includes hypertension, depression, bladder cancer with neobladder procedure in 2006, tobaccoism, brought in by ambulance from home for evaluation of chest pain, abdominal pain, generalized malaise. The patient has had substernal and right-sided chest discomfort as well as right upper quadrant abdominal pain for about a month. The patient reports having had a cough productive of yellowish sputum with occasional hemoptysis over the last month. Lung Mass: Likely etiology of patient's chest pain. CT-PA reviewed, negative for PE, shows Large central right lung mass/right hilar mass., highly suspicious for malignancy; Markedly enlarged subcarinal lymph node; Enlarged hilar lymph nodes on the right confluent with the large lung mass. -CT-guided biopsy ordered to be done by IR today 06/29 -Oncology consulted, appreciate recommendations -Brain MRI reviewed, negative for any acute intracranial findings -Riparius PO and Dilaudid IV as needed for pain Community Acquired Pneumonia: CXR images reviewed, shows RUL consolidation -Continue on antibiotics with IV Vanco(pharmacy consulted), IV Cefepime and IV Flagyl to cover for anaerobes with post-obstructive PNA per Dr. Arce -Continue duonebs -Incentive Spirometry -Check sputum culture COPD Exacerbation: patient with wheezing on exam upon arrival -Given steroids with IV Solumedrol 40mg q8h -No further wheezing today, will change to po prednisone 40mg daily x5days -Continue duonebs q4h prn -O2 sat stable on room air Abdominal Pain: suspected gastritis as patient has been taking excedrin 6-[address] abd/pelvis shows atrophic right kidney with renal calculus and moderate diffuse right hydroureter/right hydronephrosis; Left kidney wnl; s/ p cystectomy with neobladder seen in the pelvis; Cholelithiasis. Lipase and LFTs wnl -Start on Protonix 40mg bid -Tums prn dyspepsia -Patient tolerating oral intake -Hemoglobin stable at 12.7 --> 11.8 (decrease likely dilutional secondary to IVF) -Check stool hemoccult, will consult GI if positive -Will recommend outpatient f/up for GI to consider EGD if symptoms do not resolve RAYMON: Cr 1.48 upon arrival, previously 1. 22 in 2017 -Given IVF for hydration -repeat BMP shows improvement with Cr 1.26 -avoid nephrotoxins -continue to monitor Hypertension: chronic, BP well controlled -Holding patient's home amlodipine with soft BP, concern for hypotension -monitor BP, add antihypertensives as needed DVT Prophylaxis: teds/SCDs; avoid chemoprophylaxis with upcoming biopsy Discharge Planning Further work up in process. Not yet ready for discharge. Problem Qualifiers (1) Sepsis: Qualified Codes: A41.9 - Sepsis, unspecified organism (2) Pneumonia: Qualified Codes: J18.1 - Lobar pneumonia, unspecified organism Qiana Eastman PA-C Jun 29, 2017 10:26 am
[2017-06-29] MEDS ORDERED: ALUMINUM/MAGNESIUM/SIMETH 30 ML CUP PO ONE (10:30)
--- NOTE | 2017-06-29 12:09 | RADRPT ---
EXAM DATE/TIME: 06/29/2017 09:21 [facility] COMPARISON: No previous studies available for comparison. INDICATIONS : Cephalgia. CONTRAST: 12 cc Omniscan (gadodiamide) IV MEDICAL HISTORY : Hypertension. Carcinoma, bladder. SURGICAL HISTORY : Tonsillectomy. CYSTECTOMY, ORIF TIBIA ENCOUNTER: Subsequent ACUITY: 3 day PAIN SCORE: 3/10 LOCATION: cranial TECHNIQUE: Multiplanar, multisequence MRI of the brain was performed both prior to and following the administrat ion of paramagnetic contrast. FINDINGS: MRI of the brain is performed in sagittal, axial and coronal planes. The craniocervical junction and midline structures are unremarkable. Diffusion weighted images demonstrate no abnormality. There is n o evidence of acute cortical infarction, acute hemorrhage, mass effect or midline shift is seen. Foll owing the administration of contrast no abnormal enhancement is identified. Posterior fossa structur es are unremarkable. CONCLUSION: 1. No evidence of acute intracranial pathology. Chronic ischemic changes as above. Milind Molina MD on June 29, 2017 at 12:01 Board Certified Radiologist. This report was verified electronically.
--- NOTE | 2017-06-29 12:27 | RADRPT ---
EXAM DATE/TIME: 06/29/2017 00:00 COMPARISON: No previous studies available for comparison. CONSULTATION: Plan is to biopsy the consolidative mass in the right lung Ollie Sutherland MD FACR on June 29, 2017 at 12:24 Board Certified Radiologist. This report was verified electronically.
[2017-06-29] MEDS ORDERED: LIDOCAINE 1%/EPINEPHrine 1:100,000 SOLN 50 ML VIAL ONE (13:11)
[2017-06-29] MEDS ORDERED: fentaNYL CITRATE 250 MCG/5 ML AMP ONE (13:13)
[2017-06-29] MEDS ORDERED: RESP: ALBUTEROL 2.5 MG/IPRATROPIUM 0.5 MG NEB (PRN) NEB (15:15)
[2017-06-29] MEDS ORDERED: metroNIDAZOLE 500 MG INJ 100 ML IV SCH (17:45)
[2017-06-29] MEDS: predniSONE 20 MG TAB PO SCH (17:49)
[2017-06-29] MEDS: PANTOPRAZOLE SOD 40 MG DELAYED RELEASE TAB PO SCH (21:17)
[2017-06-30] VITALS (18 sets, daily range): BP systolic 97–143; BP diastolic 62–93; PULSE 55–103; RESP 18–22; TEMP 97.4–98.5; O2SAT 92–99
[2017-06-30] MEDS: metroNIDAZOLE 500 MG INJ 100 ML IV SCH ×2 (03:21→15:44)
[2017-06-30] MEDS: VANCOMYCIN 1,000 MG/NS 250 ML IV SCH ×2 (04:33)
[2017-06-30] MEDS: CEFEPIME INJ 1,000 MG in SODIUM CHLORIDE 0.9% INJ 100 ML IV SCH (05:46)
[2017-06-30 06:42] LABS: BASOPHIL % 0.1 % (0.0-2.0); HEMATOCRIT 31.6 % (39.0-51.0); HEMOGLOBIN 10.5 GM/DL (13.0-17.0); LYMPH % 7.8 % (9.0-44.0); LYMPHOCYTE # 1.3 TH/MM3 (1.0-4.8); MEAN CORPUSCULAR HEMOGLOBIN 30.5 PG (27.0-34.0); MEAN CORPUSCULAR HGB CONC 33.1 % (32.0-36.0); MONO % 4.6 % (0.0-8.0); MONOCYTE # 0.7 TH/MM3 (0-0.9); NEUT % 87.5 % (16.0-70.0); PLATELET COUNT 184 TH/MM3 (150-450); RED BLOOD COUNT 3.44 MIL/MM3 (4.50-5.90)
[2017-06-30 07:08] LABS: ALBUMIN 1.9 GM/DL (3.4-5.0); ALKALINE PHOSPHATASE 48 U/L (45-117); ALT (GPT) 22 U/L (12-78); AST (GOT) 31 U/L (15-37); BICARBONATE 21.2 MEQ/L (21.0-32.0); BLOOD UREA NITROGEN 25 MG/DL (7-18); CALCIUM 8.2 MG/DL (8.5-10.1); CHLORIDE 116 MEQ/L (98-107); CREATININE 1.13 MG/DL (0.60-1.30); GLOMERULAR FILTRATION RATE 65 ML/MIN (>89); GLUCOSE,RANDOM 109 MG/DL (74-106); SODIUM (NA) 143 MEQ/L (136-145); TOTAL BILIRUBIN ADULT 0.8 MG/DL (0.2-1.0); TOTAL PROTEIN 6.4 GM/DL (6.4-8.2)
[2017-06-30] MEDS: PANTOPRAZOLE SOD 40 MG DELAYED RELEASE TAB PO SCH ×2 (08:33→21:59)
[2017-06-30] MEDS: predniSONE 20 MG TAB PO SCH (08:33)
[2017-06-30] MEDS: SODIUM CHLORIDE 0.9% FLUSH 10 ML FLUSH IV FLUSH SCH ×2 (08:34→22:00)
[2017-06-30] MEDS: SODIUM CHLOR 0.9% 1000 ML INJ 1,000 ML IV SCH ×2 (08:35→15:45)
[2017-06-30] MEDS: DOCUSATE SODIUM 50 MG/SENNA 8.6 MG TAB PO SCH ×3 (08:35→21:59)
--- NOTE | 2017-06-30 09:28 | HHI.PR ---
Subjective Remarks Follow-up for lung mass, chest/abdominal pain, COPD exacerbation. Patient reports feeling much better today. He states his breathing has improved, denies any current shortness of breath. He reports an occasional nonproductive cough. Denies fevers or chills. His O2 saturations have been stable on room air. He wants to go home. He states his abdominal pain has resolved and he is tolerating oral intake. He has no other medical complaints at this time. Objective Vitals Vital Signs Date Time Temp Pulse Resp B/P (MAP) Pulse Ox O2 Delivery O2 Flow Rate FiO2 06/30/17 08:00 97.4 59 22 101/64 (76) 96 06/30/17 04:01 55 06/30/17 03:48 98.5 68 18 130/77 (94) 99 06/30/17 00:16 59 06/30/17 00:07 97.7 60 18 97/62 (74) 97 06/29/17 20:26 97.8 67 18 118/75 (89) 97 06/29/17 20:18 70 06/29/17 15:37 96.9 68 19 111/77 (88) 97 06/29/17 11:14 97.8 64 18 112/70 (84) 97 I/O 06/29/17 06/29/17 06/29/17 06/30/17 06/30/17 06/30/17 06:59 14:59 22:59 06:59 14:59 22:59 Intake Total 100 ml 450 ml Balance 100 ml 450 ml Intake IV Total 100 ml 450 ml Result Diagram: 06/30/17 0606/30/17 0605 Imaging Last Impressions Brain MRI 06/29/17 0600 Signed Impressions: Service Date/Time: Thursday, June 29, 2017 09:21 - CONCLUSION: 1. No evidence of acute intracranial pathology. Chronic ischemic changes as above. Milind Molina MD Chest X-Ray 06/28/17 0310 Signed Impressions: Service Date/Time: Wednesday, June 28, 2017 03:12 - CONCLUSION: Right upper lobe pulmonary consolidation. Recommend radiographic followup to resolution. Fransico Johnston MD CT Angiography 06/28/17 0000 Signed Impressions: Service Date/Time: Wednesday, June 28, 2017 04:40 - CONCLUSION: 1. Large central right lung mass/right hilar mass. Finding is highly suspicious for malignancy. The area is likely amenable to CT-guided biopsy. The mass blends with adjacent pulmonary parenchymal consolidation. 2. Markedly enlarged subcarinal lymph node. Enlarged hilar lymph nodes on the right confluent with the large lung mass. 3. No evidence of pulmonary embolus. Fransico Johnston MD Abdomen/Pelvis CT 06/28/17 0000 Signed Impressions: Service Date/Time: Wednesday, June 28, 2017 04:40 - CONCLUSION: 1. Atrophic right kidney with renal calculus and moderate diffuse right hydroureter/right hydronephrosis. Left kidney within normal limits. 2. Status post cystectomy with neobladder seen in the pelvis. 3. Cholelithiasis. Fransico Johnston MD Objective Remarks GENERAL: Thin male patient in NAD. SKIN: Warm and dry. No rash. HEENT: Normocephalic. Atraumatic. Pupils equal and round. Mucous membranes pink and moist. NECK: Supple. Trachea midline. CARDIOVASCULAR: Regular rate and rhythm. No murmur appreciated. RESPIRATORY: No accessory muscle use. Minimal right base expiratory wheezing, otherwise clear to auscultation. Breath sounds equal bilaterally. GASTROINTESTINAL: Abdomen soft, non-tender, nondistended. Normoactive bowel sounds x4. MUSCULOSKELETAL: No obvious deformities. Extremities without clubbing, cyanosis , or edema. NEUROLOGICAL: Awake and alert. No obvious cranial nerve deficits. Motor grossly within normal limits. Normal speech. PSYCHIATRIC: Appropriate mood and affect; insight and judgment normal. Procedures 06/30/17 going for lung biopsy today by IR Medications and IVs Current Medications Medications (Trade) Dose Ordered Sig/Wali Route Start Time Stop Time Status Last Admin Pharmacy Profile Note 0 ml @ 0 mls/hr UNSCH OTHER 06/28/17 05:45 Cefepime HCl 1000 mg/Sodium Chloride 100 ml @ 200 mls/hr Q12H IV 06/28/17 18:00 06/30/17 05:46 Sodium Chloride 1,000 ml @ 100 mls/hr Q10H IV 06/28/17 05:36 06/30/17 08:35 (NS Flush) 2 ml UNSCH PRN IV FLUSH 06/28/17 05:45 (NS Flush) 2 ml BID IV FLUSH 06/28/17 09:00 06/30/17 08:34 (Tylenol) 650 mg Q6H PRN PO 06/28/17 05:45 06/28/17 13:19 (Onia 5-325 Mg) 1 tab Q4H PRN PO 06/28/17 05:45 06/29/17 00:54 (Dilaudid Pf Inj) 1 mg Q3H PRN IV 06/28/17 06:00 06/28/17 19:57 (Radha-Colace) 1 tab BID PO 06/28/17 09:00 06/29/17 21:17 (Milk Of Magnesia Liq) 30 ml Q12H PRN PO 06/28/17 05:45 (Senokot) 17.2 mg Q12H PRN PO 06/28/17 05:45 (Dulcolax Supp) 10 mg DAILY PRN RECTAL 06/28/17 05:45 (Lactulose Liq) 30 ml DAILY PRN PO 06/28/17 05:45 (Xanax) 1 mg HS PRN PO 06/28/17 05:45 06/29/17 21:18 (Zofran Inj) 4 mg Q6HR PRN IV PUSH 06/28/17 17:15 06/29/17 21:14 (Tums Chew) 500 mg Q6H PRN CHEW 06/29/17 09:00 06/29/17 21:14 (Protonix) 40 mg BID PO 06/29/17 21:00 06/30/17 08:33 (Deltasone) 40 mg DAILY PO 06/29/17 16:00 06/30/17 08:33 (Duoneb Neb) 1 ampule Q4HR NEB PRN NEB 06/29/17 15:15 Metronidazole 100 ml @ 100 mls/hr Q8H IV 06/29/17 20:00 06/30/17 03:21 Vancomycin HCl 1500 mg/Sodium Chloride 515 ml @ 257.5 mls/ hr Q24H IV 06/30/17 20:00 Miscellaneous Information SPECIFIC LAB TO BE DRAWN:VANCOMYCIN TROUGH DATE TO... ONCE ONCE .XX 07/01/17 19:45 07/01/17 19:46 A/P Problem List: (1) Sepsis ICD Code: A41.9 - Sepsis, unspecified organism Status: Acute (2) Lung mass ICD Code: R91.8 - Other nonspecific abnormal finding of lung field Status: Acute (3) Pneumonia ICD Code: J18.9 - Pneumonia, unspecified organism Status: Acute Assessment and Plan 67-year-old male patient with past medical history which includes hypertension, depression, bladder cancer with neobladder procedure in 2006, tobaccoism, brought in by ambulance from home for evaluation of chest pain, abdominal pain, generalized malaise. The patient has had substernal and right-sided chest discomfort as well as right upper quadrant abdominal pain for about a month. The patient reports having had a cough productive of yellowish sputum with occasional hemoptysis over the last month. Lung Mass: Likely etiology of patient's chest pain. CT-PA reviewed, negative for PE, shows Large central right lung mass/right hilar mass., highly suspicious for malignancy; Markedly enlarged subcarinal lymph node; Enlarged hilar lymph nodes on the right confluent with the large lung mass. -CT-guided biopsy ordered to be done by IR today 06/30 -Oncology consulted, appreciate recommendations -Brain MRI reviewed, negative for any acute intracranial findings -Onia PO and Dilaudid IV as needed for pain -hopefully discharge after biopsy today if cleared by oncology Community Acquired Pneumonia: CXR images reviewed, shows RUL consolidation -Continue on antibiotics with IV Vanco(pharmacy consulted), IV Cefepime and IV Flagyl to cover for anaerobes with post-obstructive PNA per Dr. Arce -Continue duonebs -Incentive Spirometry -Sputum culture with heavy growth normal respiratory [place] -will plan to discharge on Augmentin 1tab po bid [id number] COPD Exacerbation: patient with wheezing on exam upon arrival -S/p steroids with IV Solumedrol 40mg q8h -Patient much improved, changed to po prednisone 40mg daily x5days -Continue duonebs q4h prn -O2 sat stable on room air Abdominal Pain: suspected gastritis as patient has been taking excedrin 6-[address] abd/pelvis shows atrophic right kidney with renal calculus and moderate diffuse right hydroureter/right hydronephrosis; Left kidney wnl; s/ p cystectomy with neobladder seen in the pelvis; Cholelithiasis. Lipase and LFTs wnl -Started on Protonix 40mg bid -Tums prn dyspepsia -Patient tolerating oral intake, pain resolved -Hemoglobin stable at 10.5 -Counseled on discontinuing all NSAIDs (including his excedrin) -Will recommend outpatient f/up for GI to consider EGD if symptoms do not resolve RAYMON: Cr 1.48 upon arrival, previously 1. 22 in 2017 -Given IVF for hydration -repeat BMP shows improvement with Cr 1.13 -avoid nephrotoxins -continue to monitor Hypertension: chronic, BP well controlled -Holding patient's home amlodipine with soft BP, concern for hypotension -monitor BP, add antihypertensives as needed Leukocytosis: WBC increased to 16K, likely secondary to steroids, patient is afebrile, on abx for pneumonia as above -decrease steroids -monitor for any fevers -patient hemodynamically stable DVT Prophylaxis: teds/SCDs; avoid chemoprophylaxis with upcoming biopsy Discharge Planning Hopefully discharge later today after biopsy if cleared by oncology. ADDENDUM: 1745hrs: Patient re-evaluated, does not feel ready for discharge today and wants to wait for discharge until tomorrow. Multiple biopsies taken during procedure. Also do not yet have oncology clearance. Will de-escalate antibiotics to Augmentin and decreased IVF from 100cc to 60cc/hr. Problem Qualifiers (1) Sepsis: Qualified Codes: A41.9 - Sepsis, unspecified organism (2) Pneumonia: Qualified Codes: J18.1 - Lobar pneumonia, unspecified organism Qiana Eastman PA-C Jun 30, 2017 09:28
[2017-06-30] MEDS ORDERED: fentaNYL CITRATE 250 MCG/5 ML AMP ONE (11:07)
[2017-06-30] MEDS ORDERED: MIDAZOLAM HCL 2 MG/2 ML VIAL ONE ×2 (11:07→11:52)
--- NOTE | 2017-06-30 12:18 | PD.RAD ---
Post CT Procedure Prog Note Pre Procedure Diagnosis: (1) Lung mass Post Procedure Diagnosis: (1) Lung mass Procedure Date: Jun 30, 2017 Supervising Radiologist: Kyle Weber Estimated blood loss: minimal Anesthesia: Conscious Sedation Plan of Activity Patient to Unit: [facility] Patient Condition: Good See PACS Report for procedural detail/treatment Biopsy Imaging Guidance: CT Side: Right Biopsy Procedure: Lung Site: right upper lobe lung mass. Specimen: Core Biopsy Additional Detail: 5 20G core samples obtained. Plan to [facility] for monitoring then return to floor after second negative chest xray. Kyle Weber MD Jun 30, 2017 12:18
[2017-06-30] MEDS ORDERED: VENTAER INH (12:27)
[2017-06-30] MEDS ORDERED: PANT40TA3 PO (12:27)
[2017-06-30] MEDS ORDERED: HYDR-3516 PO (12:27)
[2017-06-30] MEDS ORDERED: PRED20 PO (12:27)
[2017-06-30] MEDS ORDERED: AUGM875T3 PO (12:27)
--- NOTE | 2017-06-30 12:28 | HHI.DCPOC ---
Discharge Care Plan Diagnosis: (1) Lung mass (2) Pneumonia Goals to Promote Your Health * To prevent worsening of your condition and complications * To maintain your health at the optimal level Directions to Meet Your Goals Take your medications as prescribed Follow your dietary instruction Follow activity as directed Keep your appointments as scheduled Take your immunizations and boosters as scheduled If your symptoms worsen call your PCP, if no PCP go to Urgent Care Center or Emergency Room Smoking is Dangerous to Your Health. Avoid second hand smoke Call the 24-hour hour crisis hotline for domestic abuse at Qiana Eastman PA-C Jun 30, 2017 12:28 pm
--- NOTE | 2017-06-30 13:10 | RADRPT ---
EXAM DATE/TIME: 06/30/2017 11:45 [facility] COMPARISON: No previous studies available for comparison. INDICATIONS : Right lung mass SEDATION TIME: 30 minutes BIOPSY SITE: Right lung MEDICATION(S): 1.) 4 mg midazolam (Versed) IV 2.) 250 mcg fentanyl (Sublimaze) IV DEVICE(S): 1.) 19 gauge introducer 2.) 20 gauge bard MEDICAL HISTORY : Carcinoma, prostate. Carcinoma, bladder. SURGICAL HISTORY : Cholecystectomy Cystectomy ENCOUNTER: Initial ACUITY: 1 day PAIN SCORE: 0/10 LOCATION: Right chest A total of five core specimen(s) were obtained and sent to the laboratory for pathologic evaluation. PROCEDURE: 1. CT guided lung biopsy. Prior to the procedure informed consent was obtained. Any appropriate prior imaging studies were rev iewed. Using automated exposure control and adjustment of the mA and/or kV according to patient size, radiation dose was kept as low as reasonably achievable to obtain optimal diagnostic quality images. DICOM format image data is available electronically for review and comparison. The site was prepped in a sterile fashion. Full sterile technique was used, including cap, mask, killian rile gloves and gown and a large sterile sheet. Hand hygiene and 2% chlorhexidine and/or betadine/al cohol prep was utilized per protocol for cutaneous antisepsis. The skin and subcutaneous tissues wer e infiltrated with local anesthetic solution. With CT guidance the right upper lobe consolidative mass was localized. Biopsy was performed using th e prescribed needle as above. Adequate hemostasis was obtained with compression at the puncture site . Follow-up CT scan reveals no pneumothorax or acute abnormality. Conscious sedation was performed with the prescribed dosages and duration as above in the presence of an independent trained radiology nurse to assist in the monitoring of the patient. EKG and oximetry remained stable throughout the procedure. The patient tolerated the procedure well and there were no complications. The patient was sent to Radiology Outpatient Unit in stable condition. CONCLUSION: Uncomplicated CT guided biopsy of the right upper lobe consolidative mass. If the samples return as n ondiagnostic or with features suggesting postobstructive pneumonitis, consider bronchoscopy evaluatio n of the suspected mass obstructing the central right upper lobe bronchus. Kyle Weber MD on June 30, 2017 at 13:07 Board Certified Radiologist. This report was verified electronically.
--- NOTE | 2017-06-30 13:32 | RADRPT ---
EXAM DATE/TIME: 06/30/2017 13:12 [facility] COMPARISON: CHEST SINGLE AP, June 28, 2017, 3:12. INDICATIONS : Post right lung biopsy. MEDICAL HISTORY : Hypertension. Carcinoma, bladder. SURGICAL HISTORY : None. ENCOUNTER: Initial ACUITY: 1 day PAIN SCORE: 0/10 LOCATION: Right upper chest FINDINGS: Portable upright expiratory view of the chest demonstrates no pneumothorax following recent right upp er lobe lung mass biopsy. The right upper lobe lung mass is a stable appearance. CONCLUSION: No pneumothorax following recent right lung biopsy. Kyle Weber MD on June 30, 2017 at 13:28 Board Certified Radiologist. This report was verified electronically.
--- NOTE | 2017-06-30 14:42 | RADRPT ---
EXAM DATE/TIME: 06/30/2017 14:09 [facility] COMPARISON: CT PULMONARY ANGIOGRAM, June 28, 2017, 4:40. CHEST EXPIRATION ONLY, June 30, 2017, 13:12. INDICATIONS : Post needle biopsy right lung MEDICAL HISTORY : Hypertension. Carcinoma, bladder. SURGICAL HISTORY : None. ENCOUNTER: Initial ACUITY: 1 day PAIN SCORE: 0/10 LOCATION: Right chest FINDINGS: A single frontal expiratory view of the chest was performed. No evidence of pneumothorax. Redemonstr ation of right upper lobe lung mass. Mediastinal structures are in the midline. The cardio-mediastinal contours and bronchopulmonary markings are unremarkable for an expiratory exam . Osseous structures are intact. CONCLUSION: 1. No pneumothorax following right upper lobe lung mass biopsy. Ben Chavez MD on June 30, 2017 at 14:37 Board Certified Radiologist. This report was verified electronically.
[2017-06-30] MEDS ORDERED: VANCOMYCIN 1,500 MG/NS 500 ML IV SCH ×2 (20:00)
--- NOTE | 2017-06-30 20:54 | PD.ONC.PN ---
Subjective Subjective Remarks Many questions about lung cancer. Discussed that recommendation will be defer until final pathology. Objective Data Date Time Temp Pulse Resp B/P (MAP) Pulse Ox O2 Delivery O2 Flow Rate FiO2 06/30/17 20:08 97.4 84 18 134/81 (98) 98 06/30/17 18:48 98.2 63 20 143/93 (110) 99 06/30/17 18:48 81 06/30/17 16:00 97.7 94 20 102/70 (81) 98 06/30/17 13:50 64 20 110/69 (83) 06/30/17 13:20 62 18 111/77 (88) 92 06/30/17 12:40 62 20 114/79 (91) 93 06/30/17 12:25 97.4 73 20 100/74 (83) 94 06/30/17 09:01 59 06/30/17 08:00 97.4 59 22 101/64 (76) 96 06/30/17 04:01 55 06/30/17 03:48 98.5 68 18 130/77 (94) 99 06/30/17 00:16 59 06/30/17 00:07 97.7 60 18 97/62 (74) 97 06/30/17 06/30/17 06/30/17 07:00 15:00 23:00 Intake Total 450 ml 240 ml Balance 450 ml 240 ml Result Diagram: 06/30/1760406/30/17604 Laboratory Results Laboratory Tests Test 06/30/17 06:05 White Blood Count 16.0 TH/MM3 Red Blood Count 3.44 MIL/MM3 Hemoglobin 10.5 GM/DL Hematocrit 31.6 % Mean Corpuscular Volume 92.0 FL Mean Corpuscular Hemoglobin 30.5 PG Mean Corpuscular Hemoglobin Concent 33.1 % Red Cell Distribution Width 13.0 % Platelet Count 184 TH/MM3 Mean Platelet Volume 10.0 FL Neutrophils (%) (Auto) 87.5 % Lymphocytes (%) (Auto) 7.8 % Monocytes (%) (Auto) 4.6 % Eosinophils (%) (Auto) 0.0 % Basophils (%) (Auto) 0.1 % Neutrophils # (Auto) 14.0 TH/MM3 Lymphocytes # (Auto) 1.3 TH/MM3 Monocytes # (Auto) 0.7 TH/MM3 Eosinophils # (Auto) 0.0 TH/MM3 Basophils # (Auto) 0.0 TH/MM3 CBC Comment DIFF FINAL Differential Comment Blood Urea Nitrogen 25 MG/DL Creatinine 1.13 MG/DL Random Glucose 109 MG/DL Total Protein 6.4 GM/DL Albumin 1.9 GM/DL Calcium Level 8.2 MG/DL Alkaline Phosphatase 48 U/L Aspartate Amino Transf (AST/SGOT) 31 U/L Alanine Aminotransferase (ALT/SGPT) 22 U/L Total Bilirubin 0.8 MG/DL Sodium Level 143 MEQ/L Potassium Level 4.2 MEQ/L Chloride Level 116 MEQ/L Carbon Dioxide Level 21.2 MEQ/L Anion Gap 6 MEQ/L Estimat Glomerular Filtration Rate 65 ML/MIN Culture Results Microbiology Date/Time Source Procedure Growth Status 06/28/17 03:15 Blood Peripheral Aerobic Blood Culture - Preliminary NO GROWTH IN 2 DAYS Resulted 06/28/17 03:15 Blood Peripheral Anaerobic Blood Culture - Preliminary NO GROWTH IN 2 DAYS Resulted 06/28/17 03:10 Blood Peripheral Aerobic Blood Culture - Preliminary NO GROWTH IN 2 DAYS Resulted 06/28/17 03:10 Blood Peripheral Anaerobic Blood Culture - Preliminary NO GROWTH IN 2 DAYS Resulted 06/29/17 14:55 Sputum Expectorated Sputum Gram Stain - Final Resulted 06/29/17 14:55 Sputum Expectorated Sputum Sputum Culture - Preliminary HEAVY GROWTH NORMAL RESPIRATORY RUBEN... Resulted Imaging Studies Last 24 hours Impressions Chest X-Ray 06/30/17 1415 Signed Impressions: Service Date/Time: Friday, June 30, 2017 14:09 - CONCLUSION: 1. No pneumothorax following right upper lobe lung mass biopsy. Ben Chavez MD Chest X-Ray 06/30/17 1315 Signed Impressions: Service Date/Time: Friday, June 30, 2017 13:12 - CONCLUSION: No pneumothorax following recent right lung biopsy. Kyle Weber MD Lung Biopsy CT 06/30/17 1310 Signed Impressions: Service Date/Time: Friday, June 30, 2017 11:45 - CONCLUSION: Uncomplicated CT guided biopsy of the right upper lobe consolidative mass. If the samples return as nondiagnostic or with features suggesting postobstructive pneumonitis , consider bronchoscopy evaluation of the suspected mass obstructing the central right upper lobe bronchus. Kyle Weber MD Administered Medications Medications (Trade) Dose Ordered Sig/Wali Route PRN Reason Start Time Stop Time Status Last Admin Dose Admin Sodium Chloride 1,000 ml @ 60 mls/hr [id number] IV 06/28/17 05:36 06/30/17 15:45 Sodium Chloride (NS Flush) 2 ml BID IV FLUSH 06/28/17 09:00 06/30/17 08:34 Acetaminophen (Tylenol) 650 mg Q6H PRN PO FEVER/PAIN SCALE 1 TO 2 06/28/17 05:45 06/28/17 13:19 Acetaminophen/ Hydrocodone Bitart ([place] 5-325 Mg) 1 tab Q4H PRN PO PAIN SCALE 3 TO 5 06/28/17 05:45 06/29/17 00:54 Hydromorphone HCl (Dilaudid Pf Inj) 1 mg Q3H PRN IV PAIN SCALE 6 TO 10 06/28/17 06:00 06/28/17 19:57 Senna/Docusate Sodium (Radha-Colace) 1 tab BID PO 06/28/17 09:00 06/29/17 21:17 Alprazolam (Xanax) 1 mg HS PRN PO ANXIETY 06/28/17 05:45 06/29/17 21:18 Ondansetron HCl (Zofran Inj) 4 mg Q6HR PRN IV PUSH nausea 06/28/17 17:15 06/29/17 21:14 Calcium Carbonate (Tums Chew) 500 mg Q6H PRN CHEW DYSPEPSIA OR HEARTBURN 06/29/17 09:00 06/29/17 21:14 Pantoprazole Sodium (Protonix) 40 mg BID PO 06/29/17 21:00 06/30/17 08:33 Prednisone (Deltasone) 40 mg DAILY PO 06/29/17 16:00 06/30/17 08:33 Objective Remarks GENERAL: This is a thin, well-developed patient, in no apparent distress. SKIN: No rashes, ecchymoses or lesions. Cool and dry. HEAD: Atraumatic. Normocephalic. No temporal or scalp tenderness. EYES: Extraocular motions intact. No scleral icterus. No injection or drainage. NECK: Trachea midline. No JVD or lymphadenopathy. Supple, nontender, no meningeal signs. CARDIOVASCULAR: Regular rate and rhythm RESPIRATORY: Decreased air movement R side with scattered wheezing. Dressing RU chest. GASTROINTESTINAL: Abdomen soft, non-tender, nondistended. No hepato-splenomegaly , or palpable masses. No guarding. Midline abdominal scar up to umbilicus. MUSCULOSKELETAL: Extremities without clubbing, cyanosis, or edema. No joint tenderness, effusion, or edema noted. No calf tenderness. Negative Homans sign bilaterally. NEUROLOGICAL: Awake and alert. No focal deficits. Assessment/Plan Problem List: (1) Bladder cancer ICD Codes: C67.9 - Malignant neoplasm of urinary bladder Status: Resolved Plan: h/o bladder cancer, s/p resection w/ neobladder. (2) Lung mass ICD Codes: R91.8 - Other nonspecific abnormal finding of lung field Status: Acute Plan: Lung mass, consolidative, s/p biopsy Pending DC tomorrow. FU [facility] clinic. Information for follow up given, information to new pt referral given. OK for DC from heme/onc standpoint and follow up in clinic. Danay Briceño MD Jun 30, 2017 20:54
[2017-06-30] MEDS: AMOXICILLIN/CLAVULANATE K 875 MG TAB PO SCH (22:00)
[2017-07-01] VITALS (11 sets, daily range): BP systolic 103–131; BP diastolic 71–86; PULSE 54–74; RESP 16–24; TEMP 97.3–98; O2SAT 96–98
[2017-07-01] MEDS ORDERED: PHARMACY ORDERED LAB ONE ×2 (03:45→19:45)
[2017-07-01] MEDS: ACETAMINOPHEN 325 MG TAB PO PRN (04:31)
[2017-07-01] MEDS: ACETAMINOPHEN/HYDROcodone 325 MG/5 MG TAB PO PRN ×2 (04:32→09:30)
[2017-07-01] MEDS: AMOXICILLIN/CLAVULANATE K 875 MG TAB PO SCH (09:30)
[2017-07-01] MEDS: PANTOPRAZOLE SOD 40 MG DELAYED RELEASE TAB PO SCH (09:30)
[2017-07-01] MEDS: predniSONE 20 MG TAB PO SCH (09:30)
[2017-07-01] MEDS: DOCUSATE SODIUM 50 MG/SENNA 8.6 MG TAB PO SCH (09:32)
--- NOTE | 2017-07-01 10:09 | HHI.PR ---
Subjective Remarks This is a 67-year-old male patient with past medical history which includes hypertension, depression, bladder cancer with cystectomy prostatectomy and neobladder procedure in 2006, tobaccoism, brought in to the ER by ambulance from home on 06/27/18 for evaluation of chest pain, abdominal pain, generalized malaise. The patient reports midsternal chest pain x 6 weeks. Patient reports pain is worse with cough. Patient also reports right upper quadrant abdominal pain for about 6 weeks. Nausea but no vomiting and decrease appetite . Patient believes he has lost 13 pounds over this 6 week time frame. Patient has also had an intermitted headache for which he was taking Excedrin 6-8 pills daily. Chest and abdominal pain described as sharp, constant, moderate, intermittently worse at times, worse with movements, coughing and inspiration. Patient also endorses fevers and chills at home. 4-9 Follow up for lung mass, chest pain, abdominal pain. The patient complains of heartburn this morning, requesting medication for pain. He states he has been taking 6-8 tablets of excedrin daily at home for headaches, chest pains, and body aches. Denies any nausea/vomiting, hematemesis, melena, or hematochezia. He is tolerating oral intake. He reports continued diffuse constant chest pain, relieved by pain medication. He reports mild shortness of breath. Denies cough. No fevers overnight. Denies any other medical complaints at this time. 4-10 Follow-up for lung mass, chest/abdominal pain, COPD exacerbation. Patient reports feeling much better today. He states his breathing has improved, denies any current shortness of breath. He reports an occasional nonproductive cough. Denies fevers or chills. His O2 saturations have been stable on room air. He wants to go home. He states his abdominal pain has resolved and he is tolerating oral intake. He has no other medical complaints at this time. 4-11 has been cleared by ONCOLOGY WANTS TO GO HOME DC TO HOME TODAY SEE MED REC RX WRITTEN FOLLOW UP ONCOLOGY AND DR CAMILLE CRUZ Objective Vitals Vital Signs Date Time Temp Pulse Resp B/P (MAP) Pulse Ox O2 Delivery O2 Flow Rate FiO2 07/01/17 09:00 97.3 74 24 131/86 (101) 97 07/01/17 06:07 73 07/01/17 05:01 74 07/01/17 04:30 97.9 56 18 123/79 (94) 98 07/01/17 03:59 62 07/01/17 03:08 71 07/01/17 02:03 54 07/01/17 01:02 68 07/01/17 00:38 98.0 62 16 103/71 (82) 96 07/01/17 00:00 56 06/30/17 23:02 73 06/30/17 22:05 70 06/30/17 21:01 81 06/30/17 20:08 97.4 84 18 134/81 (98) 98 06/30/17 20:03 103 06/30/17 19:02 70 06/30/17 18:48 98.2 63 20 143/93 (110) 99 06/30/17 18:48 81 06/30/17 16:00 97.7 94 20 102/70 (81) 98 06/30/17 13:50 64 20 110/69 (83) 06/30/17 13:20 62 18 111/77 (88) 92 06/30/17 12:40 62 20 114/79 (91) 93 06/30/17 12:25 97.4 73 20 100/74 (83) 94 I/O 06/30/17 06/30/17 06/30/17 07/01/17 07/01/17 07/01/17 07:00 15:00 23:00 07:00 15:00 23:00 Intake Total 450 ml 690 ml 240 ml Balance 450 ml 690 ml 240 ml Intake Oral 240 ml 240 ml IV Total 450 ml 450 ml # Voids 1 # Bowel Movements 1 Result Diagram: 06/30/1760406/30/17604 Other Results Laboratory Tests Test 06/29/17 04:12 06/30/17 06:05 White Blood Count 8.0 TH/MM3 16.0 TH/MM3 Red Blood Count 3.78 MIL/MM3 3.44 MIL/MM3 Hemoglobin 11.8 GM/DL 10.5 GM/DL Hematocrit 35.2 % 31.6 % Mean Corpuscular Volume 93.0 FL 92.0 FL Mean Corpuscular Hemoglobin 31.1 PG 30.5 PG Mean Corpuscular Hemoglobin Concent 33.5 % 33.1 % Red Cell Distribution Width 13.1 % 13.0 % Platelet Count 179 TH/MM3 184 TH/MM3 Mean Platelet Volume 9.5 FL 10.0 FL Neutrophils (%) (Auto) 84.6 % 87.5 % Lymphocytes (%) (Auto) 11.7 % 7.8 % Monocytes (%) (Auto) 3.4 % 4.6 % Eosinophils (%) (Auto) 0.0 % 0.0 % Basophils (%) (Auto) 0.3 % 0.1 % Neutrophils # (Auto) 6.7 TH/MM3 14.0 TH/MM3 Lymphocytes # (Auto) 0.9 TH/MM3 1.3 TH/MM3 Monocytes # (Auto) 0.3 TH/MM3 0.7 TH/MM3 Eosinophils # (Auto) 0.0 TH/MM3 0.0 TH/MM3 Basophils # (Auto) 0.0 TH/MM3 0.0 TH/MM3 CBC Comment DIFF FINAL DIFF FINAL Differential Comment Blood Urea Nitrogen 20 MG/DL 25 MG/DL Creatinine 1.26 MG/DL 1.13 MG/DL Random Glucose 135 MG/DL 109 MG/DL Total Protein 7.7 GM/DL 6.4 GM/DL Albumin 2.2 GM/DL 1.9 GM/DL Calcium Level 8.6 MG/DL 8.2 MG/DL Alkaline Phosphatase 51 U/L 48 U/L Aspartate Amino Transf (AST/SGOT) 27 U/L 31 U/L Alanine Aminotransferase (ALT/SGPT) 23 U/L 22 U/L Total Bilirubin 2.0 MG/DL 0.8 MG/DL Sodium Level 139 MEQ/L 143 MEQ/L Potassium Level 4.3 MEQ/L 4.2 MEQ/L Chloride Level 108 MEQ/L 116 MEQ/L Carbon Dioxide Level 20.1 MEQ/L 21.2 MEQ/L Anion Gap 11 MEQ/L 6 MEQ/L Estimat Glomerular Filtration Rate 57 ML/MIN 65 ML/MIN Imaging Last Impressions Chest X-Ray 06/30/17 1415 Signed Impressions: Service Date/Time: Friday, June 30, 2017 14:09 - CONCLUSION: 1. No pneumothorax following right upper lobe lung mass biopsy. Ben Chavez MD Lung Biopsy CT 06/30/17 1310 Signed Impressions: Service Date/Time: Friday, June 30, 2017 11:45 - CONCLUSION: Uncomplicated CT guided biopsy of the right upper lobe consolidative mass. If the samples return as nondiagnostic or with features suggesting postobstructive pneumonitis , consider bronchoscopy evaluation of the suspected mass obstructing the central right upper lobe bronchus. Kyle Weber MD Brain MRI 06/29/17 0600 Signed Impressions: Service Date/Time: Thursday, June 29, 2017 09:21 - CONCLUSION: 1. No evidence of acute intracranial pathology. Chronic ischemic changes as above. Milind Molina MD CT Angiography 06/28/17 0000 Signed Impressions: Service Date/Time: Wednesday, June 28, 2017 04:40 - CONCLUSION: 1. Large central right lung mass/right hilar mass. Finding is highly suspicious for malignancy. The area is likely amenable to CT-guided biopsy. The mass blends with adjacent pulmonary parenchymal consolidation. 2. Markedly enlarged subcarinal lymph node. Enlarged hilar lymph nodes on the right confluent with the large lung mass. 3. No evidence of pulmonary embolus. Fransico Johnston MD Abdomen/Pelvis CT 06/28/17 0000 Signed Impressions: Service Date/Time: Wednesday, June 28, 2017 04:40 - CONCLUSION: 1. Atrophic right kidney with renal calculus and moderate diffuse right hydroureter/right hydronephrosis. Left kidney within normal limits. 2. Status post cystectomy with neobladder seen in the pelvis. 3. Cholelithiasis. Fransico Johnston MD Objective Remarks GENERAL: Awake alert and oriented 3 talkative and cooperative SKIN: Warm and dry. HEAD: Atraumatic. Normocephalic. EYES: Pupils equal and round. No scleral icterus. No injection or drainage. Extraocular muscles intact ENT: No nasal bleeding or discharge. Mucous membranes pink and moist. Tongue is midline NECK: Trachea midline. No JVD. Tongue is midline neck is supple CARDIOVASCULAR: Regular rate and rhythm. S1-S2 no S3-S4 no heave or thrill or rub or gallop RESPIRATORY: No accessory muscle use. Scattered rhonchi bilaterally breath sounds equal bilaterally. GASTROINTESTINAL: Abdomen soft, non-tender, nondistended. Hepatic and splenic margins not palpable. MUSCULOSKELETAL: Extremities without clubbing, cyanosis, or edema. No obvious deformities. NEUROLOGICAL: Awake and alert. No obvious cranial nerve deficits. Motor grossly within normal limits. Five out of 5 muscle strength in the arms and legs. Normal speech. PSYCHIATRIC: Appropriate mood and affect; insight and judgment normal. Procedures 06/30/17 going for lung biopsy today by IR Medications and IVs Current Medications Sodium Chloride 1,000 ml @ 1,000 mls/hr Q1H ONCE IV Last administered on at 03:45; Start 06/28/17 at 03:10; Stop 06/28/17 at 04:09; Status DC Sodium Chloride 800 ml @ 1,000 mls/hr Q48M ONCE IV Last administered on at 03:45; Start 06/28/17 at 03:10; Stop 06/28/17 at 03:57; Status DC Vancomycin HCl 1000 mg/Sodium Chloride 250 ml @ 250 mls/hr ONCE ONCE IV Last administered on 06/28/17at 03:45; Start 06/28/17 at 03:15; Stop 06/28/17 at 04:14; Status DC Piperacillin Sod/ Tazobactam Sod 50 ml @ 100 mls/hr ONCE ONCE IV Last administered on 06/28/17at 03:45; Start 06/28/17 at 03:15; Stop 06/28/17 at 03:44; Status DC Acetaminophen (Tylenol) 650 mg ONCE ONCE PO Last administered on 06/28/17at 03: 46; Start 06/28/17 at 03:15; Stop 06/28/17 at 03:16; Status DC Iodixanol (VISIPAQUE 320 INJ (Rad CT)) 100 ml STK-MED ONCE IVCONTRAST Last administered on 06/28/17at 04:56; Start 06/28/17 at 04:56; Stop 06/28/17 at 04:57; Status DC Pharmacy Profile Note 0 ml @ 0 mls/hr UNSCH OTHER ; Start 06/28/17 at 05:45; Stop 06/30/17 at 12:22; Status DC Cefepime HCl 1000 mg/Sodium Chloride 100 ml @ 200 mls/hr Q12H IV Last administered on 06/30/17at 05:46; Start 06/28/17 at 18:00; Stop 06/30/17 at 17:59 ; Status DC Sodium Chloride 1,000 ml @ 60 mls/hr [id number] IV Last administered on at 15:45; Start 06/28/17 at 05:36; Stop 06/30/17 at 21:00; Status DC Sodium Chloride (NS Flush) 2 ml UNSCH PRN IV FLUSH FLUSH AFTER USING IV ACCESS ; Start 06/28/17 at 05:45 Sodium Chloride (NS Flush) 2 ml BID IV FLUSH Last administered on 06/30/17at 22: 00; Start 06/28/17 at 09:00 Ondansetron HCl (Zofran Inj) 4 mg Q6H PRN IVP NAUSEA OR VOMITING; Start at 05:45; Stop 06/29/17 at 15:11; Status DC Acetaminophen (Tylenol) 650 mg Q6H PRN PO FEVER/PAIN SCALE 1 TO 2 Last administered on 07/01/17at 04:31; Start 06/28/17 at 05:45 Acetaminophen/ Hydrocodone Bitart ([place] 5-325 Mg) 1 tab Q4H PRN PO PAIN SCALE 3 TO 5 Last administered on 07/01/17at 09:30; Start 06/28/17 at 05:45 Hydromorphone HCl (Dilaudid Pf Inj) 1 mg Q3H PRN IV PAIN SCALE 6 TO 10 Last administered on 06/28/17at 19:57; Start 06/28/17 at 06:00 Senna/Docusate Sodium (Radha-Colace) 1 tab BID PO Last administered on at 09:32; Start 06/28/17 at 09:00 Magnesium Hydroxide (Milk Of Magnesia Liq) 30 ml Q12H PRN PO Mild constipation ; Start 06/28/17 at 05:45 Sennosides (Senokot) 17.2 mg Q12H PRN PO Moderate constipation; Start 06/28/17 at 05:45 Bisacodyl (Dulcolax Supp) 10 mg DAILY PRN RECTAL SEVERE CONSITIPATION; Start at 05:45 Lactulose (Lactulose Liq) 30 ml DAILY PRN PO SEVERE CONSITIPATION; Start at 05:45 Alprazolam (Xanax) 1 mg HS PRN PO ANXIETY Last administered on 06/29/17at 21:18; Start 06/28/17 at 05:45 Vancomycin HCl 1000 mg/Sodium Chloride 250 ml @ 250 mls/hr Q24H IV Last administered on 06/30/17at 04:33; Start 06/29/17 at 04:00; Stop 06/30/17 at 09:42 ; Status DC Miscellaneous Information SPECIFIC LAB TO BE ... ONCE ONCE .XX ; Start 07/01 at 03:45; Stop 07/01/17 at 03:45; Status DC Metronidazole 100 ml @ 100 mls/hr Q8H IV Last administered on 06/29/17at 10:23; Start 06/28/17 at 18:00; Stop 06/29/17 at 17:30; Status DC Methylprednisolone Sodium Succinate (SoluMEDROL INJ) 40 mg Q8HR IV PUSH Last administered on 06/29/17at 14:32; Start 06/28/17 at 16:00; Stop 06/29/17 at 15:09; Status DC Ondansetron HCl (Zofran Inj) 4 mg Q6HR PRN IV PUSH nausea Last administered on 06/29/17at 21:14; Start 06/28/17 at 17:15 Ondansetron HCl (Zofran Inj) 4 mg ONCE STAT IV PUSH Last administered on at 17:24; Start 06/28/17 at 17:05; Stop 06/28/17 at 17:16; Status DC Pantoprazole Sodium (Protonix) 40 mg DAILY PO Last administered on 06/29/17at 10: 22; Start 06/29/17 at 09:00; Stop 06/29/17 at 15:07; Status DC Calcium Carbonate (Tums Chew) 500 mg Q6H PRN CHEW DYSPEPSIA OR HEARTBURN Last administered on 06/29/17at 21:14; Start 06/29/17 at 09:00 Gadodiamide (Omniscan Pf Inj) 12 ml STK-MED ONCE IV PUSH Last administered on at 09:53; Start 06/29/17 at 09:53; Stop 06/29/17 at 09:54; Status DC Al Hydrox/Mg Hydrox/Simethicone (Mag-Al Plus Susp Liq) 30 ml ONCE ONCE PO Last administered on 06/29/17at 12:03; Start 06/29/17 at 10:30; Stop 06/29/17 at 10: 31; Status DC Lidocaine/ Epinephrine (Xylocaine-Epi 1%-1:100,000 Inj) 50 ml STK-MED ONCE .ROUTE ; Start 06/29/17 at 13:11; Stop 06/29/17 at 13:12; Status DC Fentanyl Citrate (fentaNYL INJ) 250 mcg STK-MED ONCE .ROUTE ; Start 06/29/17 at 13:13; Stop 06/29/17 at 13:14; Status DC Pantoprazole Sodium (Protonix) 40 mg BID PO Last administered on 07/01/17at 09: 30; Start 06/29/17 at 21:00 Prednisone (Deltasone) 40 mg DAILY PO Last administered on 07/01/17at 09:30; Start 06/29/17 at 16:00 Albuterol/ Ipratropium (Duoneb Neb) 1 ampule Q4HR NEB PRN NEB SOB/wheezing; Start 06/29/17 at 15:15 Metronidazole 100 ml @ 100 mls/hr Q8H IV ; Start 06/29/17 at 17:45; Status Cancel Metronidazole 100 ml @ 100 mls/hr Q8H IV Last administered on 06/30/17at 15:44 ; Start 06/29/17 at 20:00; Stop 06/30/17 at 17:59; Status DC Vancomycin HCl 1500 mg/Sodium Chloride 515 ml @ 257.5 mls/ hr Q24H IV ; Start 06/30/17 at 20:00; Stop 06/30/17 at 20:00; Status DC Miscellaneous Information SPECIFIC LAB TO BE DRAWN:VANCOMYCIN TROUGH DATE TO... ONCE ONCE .XX ; Start 07/01/17 at 19:45; Stop 07/01/17 at 19:45; Status DC Midazolam HCl (Versed Inj) 2 mg STK-MED ONCE .ROUTE Last administered on at 11:07; Start 06/30/17 at 11:07; Stop 06/30/17 at 11:08; Status DC Fentanyl Citrate (fentaNYL INJ) 250 mcg STK-MED ONCE .ROUTE Last administered on 06/30/17at 11:07; Start 06/30/17 at 11:07; Stop 06/30/17 at 11:08; Status DC Midazolam HCl (Versed Inj) 2 mg STK-MED ONCE .ROUTE Last administered on at 11:52; Start 06/30/17 at 11:52; Stop 06/30/17 at 11:53; Status DC Amoxicillin/ Clavulanate Potassium (Augmentin) 875 mg Q12HR PO Last administered on 07/01/17at 09:30; Start 06/30/17 at 21:00 A/P Problem List: (1) Sepsis ICD Code: A41.9 - Sepsis, unspecified organism Status: Acute (2) Lung mass ICD Code: R91.8 - Other nonspecific abnormal finding of lung field Status: Acute (3) Pneumonia ICD Code: J18.9 - Pneumonia, unspecified organism Status: Acute Assessment and Plan 67-year-old male patient with past medical history which includes hypertension, depression, bladder cancer with neobladder procedure in 2006, tobaccoism, brought in by ambulance from home for evaluation of chest pain, abdominal pain, generalized malaise. The patient has had substernal and right-sided chest discomfort as well as right upper quadrant abdominal pain for about a month. The patient reports having had a cough productive of yellowish sputum with occasional hemoptysis over the last month. Lung Mass: Likely etiology of patient's chest pain. CT-PA reviewed, negative for PE, shows Large central right lung mass/right hilar mass., highly suspicious for malignancy; Markedly enlarged subcarinal lymph node; Enlarged hilar lymph nodes on the right confluent with the large lung mass. -CT-guided biopsy ordered to be done by IR today 06/30 -Oncology consulted, appreciate recommendations -Brain MRI reviewed, negative for any acute intracranial findings -[place] PO and Dilaudid IV as needed for pain -hopefully discharge after biopsy today if cleared by oncology Status post biopsy of the right lung BY IR Community Acquired Pneumonia: CXR images reviewed, shows RUL consolidation -Continue on antibiotics with IV Vanco(pharmacy consulted), IV Cefepime and IV Flagyl to cover for anaerobes with post-obstructive PNA per Dr. Arce -Continue duonebs -Incentive Spirometry -Sputum culture with heavy growth normal respiratory [place] -will plan to discharge on Augmentin 1tab po bid [id number] COPD Exacerbation: patient with wheezing on exam upon arrival -S/p steroids with IV Solumedrol 40mg q8h -Patient much improved, changed to po prednisone 40mg daily x5days -Continue duonebs q4h prn -O2 sat stable on room air Abdominal Pain: suspected gastritis as patient has been taking excedrin 6-[address] abd/pelvis shows atrophic right kidney with renal calculus and moderate diffuse right hydroureter/right hydronephrosis; Left kidney wnl; s/ p cystectomy with neobladder seen in the pelvis; Cholelithiasis. Lipase and LFTs wnl -Started on Protonix 40mg bid -Tums prn dyspepsia -Patient tolerating oral intake, pain resolved -Hemoglobin stable at 10.5 -Counseled on discontinuing all NSAIDs (including his excedrin) -Will recommend outpatient f/up for GI to consider EGD if symptoms do not resolve RAYMON: Cr 1.48 upon arrival, previously 1. 22 in 2017 -Given IVF for hydration -repeat BMP shows improvement with Cr 1.13 -avoid nephrotoxins -continue to monitor Hypertension: chronic, BP well controlled -Holding patient's home amlodipine with soft BP, concern for hypotension -monitor BP, add antihypertensives as needed Leukocytosis: WBC increased to 16K, likely secondary to steroids, patient is afebrile, on abx for pneumonia as above -decrease steroids -monitor for any fevers -patient hemodynamically stable DVT Prophylaxis: teds/SCDs; avoid chemoprophylaxis with upcoming biopsy Discharge Planning DC to home today Problem Qualifiers (1) Sepsis: Qualified Codes: A41.9 - Sepsis, unspecified organism (2) Pneumonia: Qualified Codes: J18.1 - Lobar pneumonia, unspecified organism Ollie Gill DO Jul 01, 2017 10:09
[2017-07-01] MEDS ORDERED: HUMIBIDDM PO (10:11)
--- NOTE | 2017-07-01 10:12 | HHI.DS ---
Discharge Summary Admission Date Jun 28, 2017 at 05:39 Discharge Date: Jul 01, 2017 Admitting Diagnosis Sepsis, pneumonia, lung mass (1) Sepsis ICD Code: A41.9 - Sepsis, unspecified organism Diagnosis: Principal Status: Acute (2) Lung mass ICD Code: R91.8 - Other nonspecific abnormal finding of lung field Diagnosis: Principal Status: Acute (3) Pneumonia ICD Code: J18.9 - Pneumonia, unspecified organism Diagnosis: Principal Status: Acute Procedures 06/30/17 going for lung biopsy today by IR Brief History - From Admission This is a 67-year-old male patient with past medical history which includes hypertension, depression, bladder cancer with cystectomy prostatectomy and neobladder procedure in 2006, tobaccoism, brought in to the ER by ambulance from home on 06/27/18 for evaluation of chest pain, abdominal pain, generalized malaise. The patient reports midsternal chest pain x 6 weeks. Patient reports pain is worse with cough. Patient also reports right upper quadrant abdominal pain for about 6 weeks. Nausea but no vomiting and decrease appetite . Patient believes he has lost 13 pounds over this 6 week time frame. Patient has also had an intermitted headache for which he was taking Excedrin 6-8 pills daily. Chest and abdominal pain described as sharp, constant, moderate, intermittently worse at times, worse with movements, coughing and inspiration. Patient also endorses fevers and chills at home. CBC/BMP: 06/30/17 0605 06/30/17 0605 Significant Findings Laboratory Tests Test 06/29/17 04:12 06/30/17 06:05 Red Blood Count 3.78 MIL/MM3 (4.50-5.90) 3.44 MIL/MM3 (4.50-5.90) Hemoglobin 11.8 GM/DL (13.0-17.0) 10.5 GM/DL (13.0-17.0) Hematocrit 35.2 % (39.0-51.0) 31.6 % (39.0-51.0) Neutrophils (%) (Auto) 84.6 % (16.0-70.0) 87.5 % (16.0-70.0) Lymphocytes # (Auto) 0.9 TH/MM3 (1.0-4.8) Blood Urea Nitrogen 20 MG/DL (7-18) 25 MG/DL (7-18) Random Glucose 135 MG/DL (74-106) 109 MG/DL (74-106) Albumin 2.2 GM/DL (3.4-5.0) 1.9 GM/DL (3.4-5.0) Total Bilirubin 2.0 MG/DL (0.2-1.0) Chloride Level 108 MEQ/L (98-107) 116 MEQ/L (98-107) Carbon Dioxide Level 20.1 MEQ/L (21.0-32.0) Estimat Glomerular Filtration Rate 57 ML/MIN (>89) 65 ML/MIN (>89) White Blood Count 16.0 TH/MM3 (4.0-11.0) Lymphocytes (%) (Auto) 7.8 % (9.0-44.0) Neutrophils # (Auto) 14.0 TH/MM3 (1.8-7.7) Calcium Level 8.2 MG/DL (8.5-10.1) Imaging Last Impressions Chest X-Ray 06/30/17 1415 Signed Impressions: Service Date/Time: Friday, June 30, 2017 14:09 - CONCLUSION: 1. No pneumothorax following right upper lobe lung mass biopsy. Ben Chavez MD Lung Biopsy CT 06/30/17 1310 Signed Impressions: Service Date/Time: Friday, June 30, 2017 11:45 - CONCLUSION: Uncomplicated CT guided biopsy of the right upper lobe consolidative mass. If the samples return as nondiagnostic or with features suggesting postobstructive pneumonitis , consider bronchoscopy evaluation of the suspected mass obstructing the central right upper lobe bronchus. Kyle Weber MD Brain MRI 06/29/17 0600 Signed Impressions: Service Date/Time: Thursday, June 29, 2017 09:21 - CONCLUSION: 1. No evidence of acute intracranial pathology. Chronic ischemic changes as above. Milind Molina MD CT Angiography 06/28/17 0000 Signed Impressions: Service Date/Time: Wednesday, June 28, 2017 04:40 - CONCLUSION: 1. Large central right lung mass/right hilar mass. Finding is highly suspicious for malignancy. The area is likely amenable to CT-guided biopsy. The mass blends with adjacent pulmonary parenchymal consolidation. 2. Markedly enlarged subcarinal lymph node. Enlarged hilar lymph nodes on the right confluent with the large lung mass. 3. No evidence of pulmonary embolus. Fransico Johnston MD Abdomen/Pelvis CT 06/28/17 0000 Signed Impressions: Service Date/Time: Wednesday, June 28, 2017 04:40 - CONCLUSION: 1. Atrophic right kidney with renal calculus and moderate diffuse right hydroureter/right hydronephrosis. Left kidney within normal limits. 2. Status post cystectomy with neobladder seen in the pelvis. 3. Cholelithiasis. Fransico Johnston MD PE at Discharge GENERAL: Awake alert and oriented 3 talkative and cooperative SKIN: Warm and dry. HEAD: Atraumatic. Normocephalic. EYES: Pupils equal and round. No scleral icterus. No injection or drainage. Extraocular muscles intact ENT: No nasal bleeding or discharge. Mucous membranes pink and moist. Tongue is midline NECK: Trachea midline. No JVD. Tongue is midline neck is supple CARDIOVASCULAR: Regular rate and rhythm. S1-S2 no S3-S4 no heave or thrill or rub or gallop RESPIRATORY: No accessory muscle use. Scattered rhonchi bilaterally breath sounds equal bilaterally. GASTROINTESTINAL: Abdomen soft, non-tender, nondistended. Hepatic and splenic margins not palpable. MUSCULOSKELETAL: Extremities without clubbing, cyanosis, or edema. No obvious deformities. NEUROLOGICAL: Awake and alert. No obvious cranial nerve deficits. Motor grossly within normal limits. Five out of 5 muscle strength in the arms and legs. Normal speech. PSYCHIATRIC: Appropriate mood and affect; insight and judgment normal. Hospital Course This is a 67-year-old male patient with past medical history which includes hypertension, depression, bladder cancer with cystectomy prostatectomy and neobladder procedure in 2006, tobaccoism, brought in to the ER by ambulance from home on 06/27/18 for evaluation of chest pain, abdominal pain, generalized malaise. The patient reports midsternal chest pain x 6 weeks. Patient reports pain is worse with cough. Patient also reports right upper quadrant abdominal pain for about 6 weeks. Nausea but no vomiting and decrease appetite . Patient believes he has lost 13 pounds over this 6 week time frame. Patient has also had an intermitted headache for which he was taking Excedrin 6-8 pills daily. Chest and abdominal pain described as sharp, constant, moderate, intermittently worse at times, worse with movements, coughing and inspiration. Patient also endorses fevers and chills at home. 4-9 Follow up for lung mass, chest pain, abdominal pain. The patient complains of heartburn this morning, requesting medication for pain. He states he has been taking 6-8 tablets of excedrin daily at home for headaches, chest pains, and body aches. Denies any nausea/vomiting, hematemesis, melena, or hematochezia. He is tolerating oral intake. He reports continued diffuse constant chest pain, relieved by pain medication. He reports mild shortness of breath. Denies cough. No fevers overnight. Denies any other medical complaints at this time. 4-10 Follow-up for lung mass, chest/abdominal pain, COPD exacerbation. Patient reports feeling much better today. He states his breathing has improved, denies any current shortness of breath. He reports an occasional nonproductive cough. Denies fevers or chills. His O2 saturations have been stable on room air. He wants to go home. He states his abdominal pain has resolved and he is tolerating oral intake. He has no other medical complaints at this time. 4-11 has been cleared by ONCOLOGY WANTS TO GO HOME DC TO HOME TODAY SEE MED REC RX WRITTEN FOLLOW UP ONCOLOGY AND DR CAMILLE ZAMORANO Pt Condition on Discharge: Good Discharge Disposition: Discharge Home Discharge Time: <= 30 minutes Discharge Instructions DIET: Follow Instructions for: As Tolerated, No Restrictions, Heart Healthy Diet Speech Therapy-Diet Recommends: Regular Additional Diet Instructions: Stop smoking Activities you can perform: Regular-No Restrictions Other Activity Instructions: Stop smoking Follow up Referrals: Oncology - 3-5 Days with Danay Briceño MD PCP Follow-up - 1 Week with Camille Zamorano DO New Orders: X-RAY CHEST PA & LAT - 6 Weeks New Medications: Albuterol 18 GM Inh (Ventolin Hfa 18 GM Inh) 90 Mcg/Act Aer 2 PUFF INH Q4-6H PRN for SHORTNESS OF BREATH, #1 INHALER 1 Refill Amoxicillin-Clavulanate (Augmentin) 875-125 Mg Tab 1 TAB PO BID for Infection for 10 Days, #20 TAB 0 Refills Dextromethorphan-Guaifenesin (Mucinex DM) 30-600 Mg Tab 1 TAB PO BID PRN for CHEST CONGESTION AND/OR COUGH for 30 Days, #60 TAB 0 Refills Hydrocodone/Acetaminophen (Hydrocodone-Acetamin 5-325 mg) 5 Mg-325 Mg Tablet 1 TAB PO Q4H PRN for pain, #12 TAB Pantoprazole (Pantoprazole) 40 Mg Tab 40 MG PO DAILY for Manage Heartburn, #30 TAB Prednisone (Prednisone) 20 Mg Tab 40 MG PO DAILY for COPD for 5 Days, #10 TAB Continued Medications: Alprazolam (Alprazolam) 1 Mg Tab 1 MG PO HS PRN for ANXIETY, TAB 0 Refills Discontinued Medications: Amlodipine (Amlodipine) 5 Mg Tab 5 MG PO DAILY for Blood Pressure Management, #30 TAB 0 Refills Ollie Gill DO Jul 01, 2017 10:12
== END 2017-07-01 11:13 | disposition home or self-care (01) | DRG 871 ==
LOC: NEPE 03:03 → NEDA 05:39 → NEPFCDU 07:48 → HCIN 06-30 18:37
PROVIDERS: ADMIT Hospitalist; ATTEND Hospitalist
PROC: 0BBC3ZX Excision of Right Upper Lung Lobe, Percutaneous Approach, Diagnostic (ICD-10-PCS; principal; 2017-06-30)
DX: A41.9 Sepsis, unspecified organism (principal); J18.9 Pneumonia, unspecified organism; N17.9 Acute kidney failure, unspecified; C77.1 Secondary and unspecified malignant neoplasm of intrathoracic lymph nodes; C34.11 Malignant neoplasm of upper lobe, right bronchus or lung; J44.0 Chronic obstructive pulmonary disease with (acute) lower respiratory infection; I10 Essential (primary) hypertension; D63.0 Anemia in neoplastic disease; J44.1 Chronic obstructive pulmonary disease with (acute) exacerbation; N13.2 Hydronephrosis with renal and ureteral calculous obstruction; R04.2 Hemoptysis; Z68.1 Body mass index [BMI] 19.9 or less, adult; K80.20 Calculus of gallbladder without cholecystitis without obstruction; R63.0 Anorexia; K29.70 Gastritis, unspecified, without bleeding; N26.1 Atrophy of kidney (terminal); T38.0X5A Adverse effect of glucocorticoids and synthetic analogues, initial encounter; D72.828 Other elevated white blood cell count; F41.0 Panic disorder [episodic paroxysmal anxiety]; Z80.9 Family history of malignant neoplasm, unspecified; Z85.46 Personal history of malignant neoplasm of prostate; Z85.51 Personal history of malignant neoplasm of bladder; Z87.891 Personal history of nicotine dependence; Z88.5 Allergy status to narcotic agent; Z90.6 Acquired absence of other parts of urinary tract
CPT/HCPCS: 32405; 70553; 71045; 71275; 74177; 77012; 80053; 82550; 83605; 83690; 84484; 85025; 85610; 85730; 87040; 87070; 87077; 87186; 87205; 88305; 88341; 88342; 93005; 94150; 96361; 96365; 96368; 99152; 99153; A9579; J0692; J1170; J2250; J2405; J2543; J2920; J3010; J3370; J7030; J7050; J7512; Q9967

== ENCOUNTER 2018-03-31 17:12 | Inpatient (IN) ==
[2018-03-31] MEDS ORDERED: Sod Chloride 0.9% Inj 1,000 ML IV.SIG SCH ×2 (19:15→21:15)
[2018-03-31] MEDS ORDERED: Dexamethasone Inj 20 MG/5 ML Vial IV.PUSH ONE (19:25)
--- NOTE | 2018-03-31 19:25 | ED ---
HPI General Chief Complaint: Shortness of Breath/Dyspnea Stated Complaint: Shortness of breath Time Seen by Provider: 03/31/18 19:04 Source: patient and family Mode of arrival: ambulatory Limitations: no limitations History of Present Illness Patient is a 68-year-old male presenting to the emerge department for evaluation of shortness of breath. Patient daughter states that he is unable to even walk to the mailbox. This is ongoing for the last week and a half. They report decreased appetite, vomiting and nausea for the last 3 days. Patient denies any actual fevers. He denies any diarrhea, chest pain, abdominal pain. Patient has a history of lung cancer status post chemo and radiation. Last radiation treatment was over 2 weeks ago he was doing well. Symptom onset was gradual, symptoms are moderate getting progressively worse. Patient does not smoke anymore, he quit in June 2017. Medical history is also significant for hypertension, depression, bladder cancer status post radical cystectomy, small cell lung cancer, COPD. MD Complaint: Reports shortness of breath Onset (ago): day(s) Severity: moderate Consistency/Duration: progressively worsening Relieving factors: nothing Exacerbating factors: exertion Known history of: Reports COPD Associated symptoms: Reports cough, orthopnea and nausea/vomiting Treatment prior to arrival: Reports none Related Data Home Medications Medication Instructions Recorded Confirmed alprazolam [Xanax] 1 mg PO BID PRN 12/04/17 03/31/18 hydrocodone-acetaminophen 1 tab PO Q6H PRN 12/04/17 03/31/18 Allergies Allergy/AdvReac Type Severity Reaction Status Date / Time morphine Allergy Severe swelling Verified 03/31/18 19:03 Review of Systems ROS: all other systems reviewed are negative [facility] Medical History Medical History Anxiety (Acute) Bladder cancer (Acute) COPD (chronic obstructive pulmonary disease) (Acute) Cancer (Acute) Hypertension (Acute) Lung cancer (Acute) Pneumonia (Acute) Sepsis (Acute) Surgical History Surgical History H/O total cystectomy (Acute) Social History Social History Substance History: No History of Abuse Second Hand Smoke Exposure: No Smoking Status: Former smoker Tobacco Type: Cigarettes How Often Do You Have a Drink Containing Alcohol: Never Recent Travel in [facility] within the Last 8 Weeks: No Recent Out of Country Travel within the Last 8 Weeks: No Immunization History Tetanus Immunization: <5 Years Exam Narrative Exam Narrative: GENERAL: Thin, well-developed, alert male. Presenting in no acute distress. SKIN: Focused skin assessment warm/dry. HEAD: Atraumatic. Normocephalic. EYES: Pupils equal and round. No scleral icterus. No injection or drainage. ENT: No nasal bleeding or discharge. Mucous membranes pink and moist. NECK: Trachea midline. No JVD. CARDIOVASCULAR: Mildly tachycardic. No murmur appreciated. RESPIRATORY: Tachypneic, diminished in bases GASTROINTESTINAL: Abdomen soft, non-tender, nondistended. Hepatic and splenic margins not palpable. MUSCULOSKELETAL: No obvious deformities. No clubbing. No cyanosis. No edema. NEUROLOGICAL: Awake and alert. No obvious cranial nerve deficits. Motor grossly within normal limits. Normal speech. PSYCHIATRIC: Appropriate mood and affect; insight and judgment normal. Course Initial Documented Vital Signs Temperature 97.7 F 03/31/18 17:25 Pulse Rate 107 H 03/31/18 17:25 Respiratory Rate 36 H 03/31/18 17:25 Blood Pressure 95/66 L 03/31/18 17:25 Pulse Oximetry 98 03/31/18 17:25 Last Documented Vital Signs Temperature 98 F 03/31/18 22:30 Pulse Rate 99 H 03/31/18 23:16 Respiratory Rate 24 03/31/18 23:16 Blood Pressure 118/65 03/31/18 22:30 Pulse Oximetry 86 L 03/31/18 23:16 Medical Decision Making CIERRA Attestation CIERRA supervised visit: Yes Attestation: I, Dr. Rizvi, have reviewed the advance practice practitioner' s documentation and am in agreement, met with the patient face to face, made the diagnosis, and the medical decision making was done by me. *My assessment and Findings: The patient is a 68-year-old male who has a remote history of bladder cancer and a recent diagnosis of lung cancer, small cell lung carcinoma, diagnosed in June 2017. The patient is followed by his radiation oncologist, Dr. Pineda, and recently finished radiation therapy to the brain, 10 episodes per the patient's report. The patient is also followed by his medical oncologist, Dr. Briceño, and finished chemotherapy in December 2017. The patient states over the last 2 weeks he is eating his oral intake with significant increase in generalized weakness. The patient also notes increasing shortness of breath over the last several weeks, worse over the last 2 days, which is exacerbated by exertion and talking. The patient denies any significant new cough and denies any known history of congestive heart failure, pulmonary embolism, DVT, or cardiomyopathy. The patient denies any current fever, chills, or sweats. The patient states he was seen in the oncology building in the end of February where he underwent hydration therapy, however, his symptoms have been progressive. The patient was noted to be short of breath with talking, only able to speak in 4-5 word sentences, and had an elevated respiratory rate of 26. Patient was also tachycardic, chest x-ray revealed scarring in the right upper lobe. Therefore, creatinine was sent to lab, the patient will be ruled out for pulmonary embolism based on his creatinine with either CTA pulmonary angiogram or V/Q nuc med test. MDM Narrative Medical decision making narrative: Pt presented with increasing SOB over the last week and a half, then started having nausea and vomiting for the last 3 days. Work-up initiated, IVF's, neds and dexamethasone ordered. CXR with no evidence of acute PNA, due to tachycardia and recent chemo radiation increasing risk for PE a CTA was ordered. CBC with no acute findings. CMP with BUN/Cr 33/1.46 Lactic 1.8 UA with elevated WBC's, lower when compared to prior. CTA was negative for PE but does show a developing MILDRED PNA, scarring in the RUL. Pt was started on cefepime and azithromycin. He was given a total of 2 liters of IVF. HR trended down. Pt was ambulated, his O2 sat dropped to 86% on room air, he became tachypneic and uncomfortable. He was placed back on O2 @ 2L via VT. [facility] paged for admit, Dr. Eller accepted. Orders placed. Pt made aware of plan and clinical findings. Medical Screen Exam Complete: Yes Emergency Medical Condition: Yes Differential Diagnosis Differential Diagnosis: Pneumonia versus bronchitis versus pulmonary embolism versus COPD exacerbation versus other Medical Records Medical records reviewed: Yes I reviewed the patient's medical records. Lab Data Lab results reviewed: Yes I reviewed the patient's lab results. Result diagrams: 03/31/18 20:17 03/31/18 20:17 Lab Results 03/31/18 03/31/18 03/31/18 Range/Units 20:17 20:17 20:17 WBC 6.2 (4.0-11.0) th/mm3 RBC 3.57 L (4.50-5.90) mil/mm3 Hgb 11.3 L (13.0-17.0) gm/dL Hct 33.6 L (39.0-51.0) % MCV 94.2 (80.0-100.0) fL MCH 31.7 (27.0-34.0) pg MCHC 33.7 (32.0-36.0) % RDW 15.8 (11.6-17.2) % Plt Count 149 L (150-450) th/mm3 MPV 9.3 (7.0-11.0) fL Neut % (Auto) 79.6 H (16.0-70.0) % Lymph % (Auto) 6.8 L (9.0-44.0) % [place] % (Auto) 13.1 H (0.0-8.0) % Eos % (Auto) 0.2 (0.0-4.0) % Baso % (Auto) 0.3 (0.0-2.0) % Neut # (Auto) 4.9 (1.8-7.7) th/mm3 Lymph # (Auto) 0.4 L (1.0-4.8) th/mm3 [place] # (Auto) 0.8 (0.0-0.9) th/mm3 Eos # (Auto) 0.0 (0.0-0.4) th/mm3 Baso # (Auto) 0.0 (0.0-0.2) th/mm3 WBC Differential . Differential Comment Auto diff final Sodium 134 L (136-145) meq/L Potassium 4.4 (3.5-5.1) meq/L Chloride 101 (98-107) meq/L Carbon Dioxide 23.7 (21.0-32.0) meq/L Anion Gap 9 (5-15) meq/L BUN 33 H (7-18) mg/dL Creatinine 1.46 H (0.60-1.30) mg/dL Estimated GFR 48 L (>89) mL/min Random Glucose 109 H (74-106) mg/dL Lactic Acid 1.8 (0.4-2.0) mmol/L Calcium 8.9 (8.5-10.1) mg/dL Magnesium 2.2 (1.5-2.5) mg/dL Total Bilirubin 1.7 H (0.2-1.0) mg/dL AST 40 H (15-37) U/L ALT 47 (12-78) U/L Alkaline Phosphatase 89 (45-117) U/L Total Creatine Kinase 22 L (39-308) U/L Troponin I Less than 0.02 L (0.02-0.05) ng/mL Total Protein 8.2 (6.4-8.2) g/dL Albumin 2.6 L (3.4-5.0) g/dL Lipase 156 (73-393) U/L Urine Color (Yellw/Straw) Urine Clarity (Clear) Urine pH (5.0-8.5) Ur Specific [place] (1.002-1.035) Urine Protein (Neg-Trace) mg/dL Urine Glucose (UA) (Negative) mg/dL Urine Ketones (Negative) mg/dL Urine Occult Blood (Negative) Urine Nitrate (Negative) Urine Bilirubin (Negative) Urine Urobilinogen (Less than 2) mg/dL Ur Leukocyte Esterase (Negative) Urine RBC (0-3) /hpf Urine WBC (0-5) /hpf Hyaline Casts (0-3) /lpf Micro UA Comment Ur Microscopic Review Urine Culture Comments 03/31/18 Range/Units 21:30 WBC (4.0-11.0) th/mm3 RBC (4.50-5.90) mil/mm3 Hgb (13.0-17.0) gm/dL Hct (39.0-51.0) % MCV (80.0-100.0) fL MCH (27.0-34.0) pg MCHC (32.0-36.0) % RDW (11.6-17.2) % Plt Count (150-450) th/mm3 MPV (7.0-11.0) fL Neut % (Auto) (16.0-70.0) % Lymph % (Auto) (9.0-44.0) % [place] % (Auto) (0.0-8.0) % Eos % (Auto) (0.0-4.0) % Baso % (Auto) (0.0-2.0) % Neut # (Auto) (1.8-7.7) th/mm3 Lymph # (Auto) (1.0-4.8) th/mm3 [place] # (Auto) (0.0-0.9) th/mm3 Eos # (Auto) (0.0-0.4) th/mm3 Baso # (Auto) (0.0-0.2) th/mm3 WBC Differential Differential Comment Sodium (136-145) meq/L Potassium (3.5-5.1) meq/L Chloride (98-107) meq/L Carbon Dioxide (21.0-32.0) meq/L Anion Gap (5-15) meq/L BUN (7-18) mg/dL Creatinine (0.60-1.30) mg/dL Estimated GFR (>89) mL/min Random Glucose (74-106) mg/dL Lactic Acid (0.4-2.0) mmol/L Calcium (8.5-10.1) mg/dL Magnesium (1.5-2.5) mg/dL Total Bilirubin (0.2-1.0) mg/dL AST (15-37) U/L ALT (12-78) U/L Alkaline Phosphatase (45-117) U/L Total Creatine Kinase (39-308) U/L Troponin I (0.02-0.05) ng/mL Total Protein (6.4-8.2) g/dL Albumin (3.4-5.0) g/dL Lipase (73-393) U/L Urine Color Yellow (Yellw/Straw) Urine Clarity Clear (Clear) Urine pH 6.0 (5.0-8.5) Ur Specific [place] 1.011 (1.002-1.035) Urine Protein Negative (Neg-Trace) mg/dL Urine Glucose (UA) Negative (Negative) mg/dL Urine Ketones Negative (Negative) mg/dL Urine Occult Blood Negative (Negative) Urine Nitrate Negative (Negative) Urine Bilirubin Negative (Negative) Urine Urobilinogen Less than 2 (Less than 2) mg/dL Ur Leukocyte Esterase Negative (Negative) Urine RBC 2 (0-3) /hpf Urine WBC 12 H (0-5) /hpf Hyaline Casts 4 (0-3) /lpf Micro UA Comment Culture not ind Ur Microscopic Review Not Reportable Urine Culture Comments Culture not ind Imaging Data Radiologist's impression: Chest X-Ray 03/31/18 19:13 CONCLUSION: Stable apparent scarring in the right lung with no evidence of acute pneumonia. Chest CTA 03/31/18 20:22 CONCLUSION: 1. No evidence of pulmonary embolism. 2. New small focal area of coarse infiltrate in the anterior left upper lobe could represent early pneumonia. The consolidative opacity remaining in the right upper lobe majority of which appears to represent scarring. 3. New small right pleural effusion. 4. Underlying emphysema. Line small atrophic right kidney without change. ECG Data EKG Prior to Arrival: No Attestation: I personally reviewed and interpreted this ECG as follows: Interpretation: EKG reveals sinus tachycardia with a heart rate of 112. Left atrial enlargement. Discharge Plan Discharge Disposition Patient Disposition: ED Admit(ED Internal Use Only) Discharge Condition Condition: Stable Discharge Order Discharge Orders: ED Use Only Admit Order (Routine); Ordered 03/31/18 Ordered By: Carolyn Retana Discharge Details Diagnosis: Pneumonia Physicians Team ED Provider: Flynn Rizvi ED Midlevel Provider: Carolyn Retana Primary Care Provider: Maximo Cavazos Attending Provider: Anu Eller Rxs /Orders / Referrals /Forms Prescriptions: No Action alprazolam [Xanax] 1 mg Tablet 1 mg PO BID PRN (Reason: Anxiety) RF: 0 hydrocodone-acetaminophen 10-325 mg Tablet 1 tab PO Q6H PRN (Reason: Acute Pain) RF: 0 Status ED Status: Admitted Patient
--- NOTE | 2018-03-31 20:09 | XR ---
EXAM DATE: 03/31/2018 8:05 PM EST AGE/SEX: 68 years / Male INDICATIONS: Short of breath and fever. CLINICAL DATA: This is the patient's initial encounter. Patient reports that signs and symptoms have been present for 2 days and indicates a pain score of 0/10. MEDICAL/SURGICAL HISTORY: Carcinoma, lung. Chronic obstructive pulmonary disease. . Infusaport . COMPARISON: [facility] [place] 1[place] SINGLE AP[place]04/2017. . FINDINGS: A single AP portable erect view of the chest was obtained and demonstrates a linear band of apparent scarring in the right lung. Volume loss is again noted with scarring in the perihilar region as well. The left subclavian transvenous pacer remains in place. The heart size is within normal limits. Righ t apical pleural parenchymal changes again noted consistent with scarring. There are no new confluent infiltrates or effusions. The bony thorax remains intact. CONCLUSION: Stable apparent scarring in the right lung with no evidence of acute pneumonia. Electronically signed by: Dejon Bishop MD Board Certified Radiologist 03/31/2018 8:08 PM EST
[2018-03-31 20:43] LABS: Baso % (Auto) 0.3 % (0.0-2.0); Eos % (Auto) 0.2 % (0.0-4.0); Hematocrit 33.6 % (39.0-51.0); Hemoglobin 11.3 gm/dL (13.0-17.0); Lymph # (Auto) 0.4 th/mm3 (1.0-4.8); Lymph % (Auto) 6.8 % (9.0-44.0); Mean Corpuscular HGB Conc 33.7 % (32.0-36.0); Mean Corpuscular Hemoglobin 31.7 pg (27.0-34.0); Mean Corpuscular Volume 94.2 fL (80.0-100.0); Mean Platelet Volume 9.3 fL (7.0-11.0); Mono # (Auto) 0.8 th/mm3 (0.0-0.9); Mono % (Auto) 13.1 % (0.0-8.0); Neut # (Auto) 4.9 th/mm3 (1.8-7.7); Neut % (Auto) 79.6 % (16.0-70.0); Platelet Count 149 th/mm3 (150-450); Red Blood Count 3.57 mil/mm3 (4.50-5.90); Red Cell Distribution Width 15.8 % (11.6-17.2); White Blood Count 6.2 th/mm3 (4.0-11.0)
[2018-03-31 21:09] LABS: Alanine Aminotransferase 47 U/L (12-78); Albumin 2.6 g/dL (3.4-5.0); Anion Gap 9 meq/L (5-15); Aspartate Aminotransferase 40 U/L (15-37); Blood Urea Nitrogen 33 mg/dL (7-18); Calcium 8.9 mg/dL (8.5-10.1); Carbon Dioxide 23.7 meq/L (21.0-32.0); Chloride 101 meq/L (98-107); Glomerular Filtration Rate 48 mL/min (>89); Glucose,Random 109 mg/dL (74-106); Lipase 156 U/L (73-393); Magnesium 2.2 mg/dL (1.5-2.5); Potassium 4.4 meq/L (3.5-5.1); Sodium 134 meq/L (136-145)
[2018-03-31 21:13] LABS: Alkaline Phosphatase 89 U/L (45-117); Total Protein 8.2 g/dL (6.4-8.2)
[2018-03-31 21:17] LABS: Creatine Kinase 22 U/L (39-308)
[2018-03-31 21:44] LABS: Bilirubin,Urine Negative (Negative); Clarity,Urine Clear (Clear); Color,Urine Yellow (Yellw/Straw); Glucose,Urine (UA) Negative (Negative); Hyaline Casts,Urine 4 /lpf (0-3); Leukocyte Esterase,Urine Negative (Negative); Nitrite,Urine Negative (Negative); Specific Gravity,Urine 1.011 (1.002-1.035)
--- NOTE | 2018-03-31 22:42 | CT ---
EXAM DATE: 03/31/2018 10:29 PM EST AGE/SEX: 68 years / Male INDICATIONS: Short of breath. Embolism. CLINICAL DATA: This is the patient's initial encounter. Patient reports that signs and symptoms have been present for 1 day and indicates a pain score of 5/10. MEDICAL/SURGICAL HISTORY: Carcinoma, bladder. Carcinoma, lung. Hypertension. COPD. . Cystectom y. RADIATION DOSE: 6.15 CTDI (mGy) COMPARISON: [facility], CTA PULMONARY W CONTRAST W 3D, 12/04/2017. . TECHNIQUE: Volumetric scanning was performed using a multi-row detector CT scanner during bolus infu david of 45 ml Omnipaque 350 (iohexol) nonionic water-soluble contrast as a single exam dose. The padmini a was post processed with a variety of visualization algorithms including full volume maximum intensi ty projection and sliding thin slab reformation. Using automated exposure control and adjustment of t he mA and/or kV according to patient size, radiation dose was kept as low as reasonably achievable to obtain optimal diagnostic quality images. DICOM format image data is available electronically for r eview and comparison. FINDINGS: Pulmonary Arteries: No filling defects are seen in the pulmonary arteries out to the subsegmental ve ssels. The left and right pulmonary arteries are normal in diameter. Lung: There is hyperinflation and underlying emphysema. There is a new focal area of mild consolidat suleman opacity in the left upper lobe. There is chronic scarring in the right upper lobe with volume los s. Effusion: There is a small right pleural effusion now noted. Mediastinum: No evidence of mediastinal or hilar adenopathy. Coronary artery calcifications are agai n noted. Other: The axilla is unremarkable. The right kidney is small and atrophic in appearance without jaquez ge. CONCLUSION: 1. No evidence of pulmonary embolism. 2. New small focal area of coarse infiltrate in the anterior left upper lobe could represent early p neumonia. The consolidative opacity remaining in the right upper lobe majority of which appears to re present scarring. 3. New small right pleural effusion. 4. Underlying emphysema. Line small atrophic right kidney without change. Electronically signed by: Dejon Bishop MD Board Certified Radiologist 03/31/2018 10:40 PM EST
[2018-03-31] MEDS ORDERED: Azithromycin Inj 500 MG in Sodium Chlor 0.9% Inj 250 ML IV.SIG STA (22:51)
[2018-04-01 01:53] LABS: ABG Base Excess -2.9 mmol/L (-2-2); ABG PCO2 32 mmHg (38-42); ABG PO2 118 mmHg (61-120)
[2018-04-01] MEDS ORDERED: Bisacodyl 10 MG Supp RECTAL PRN (01:53)
[2018-04-01] MEDS ORDERED: Acetaminophen 325 MG Tablet PO PRN (01:53)
--- NOTE | 2018-04-01 02:04 | P.HP ---
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 The patient reports he completed lung radiation in December and had prophylactic brain radiation approximately 2 weeks ago. He reports he has felt dizzy and short of breath since his last radiation appointment. He states today his shortness of breath was worse than normal and when he was walking to take out the trash he fell while experiencing vertigo. He is tachypneic during our interview. He complains of chronic back pain. He denies any chest pain. No cough. No fever/chills. No abdominal pain. No nausea/vomiting/diarrhea. No focal neurologic deficits. Inpatient Certification: I certify that the inpatient services were ordered in accordance with Medicare regulations governing the order. This includes certification that hospital inpatient services are reasonable and necessary and in the case of services not specified as inpatient-only under 42 CFR 419.22(n), that they are appropriately provided as inpatient services in accordance to with the 2-midnight benchmark under 43 CFR 412.3(e) Estimated Total Length of Stay (Days): 2 Plans for Post Hospital Care: Not yet determined Review of Systems All other systems reviewed negative except as stated in HPI PMFSH - History History Provided By: Patient - Medical History Medical History: Medical History (Last Reviewed 04/01/18 @ 01:59 by Anu Eller MD) Anxiety Bladder cancer COPD (chronic obstructive pulmonary disease) Cancer Hypertension Lung cancer Pneumonia Sepsis - Surgical History Surgical History: Surgical History (Last Reviewed 04/01/18 @ 01:59 by Anu Eller MD) H/O total cystectomy - Family History Family History: Family History (Last Updated 04/01/18 @ 01:59 by Anu Eller MD) Other Cancer - Tobacco History Second Hand Smoke Exposure: No Smoking Status: Former smoker Tobacco Type: Cigarettes - Alcohol History How Often Do You Have a Drink Containing Alcohol: Never - Substance Use History Substance History: No History of Abuse - Travel History Recent Travel in the [place] Within the Last 8 Weeks: No Recent Travel Out of the Country Within the Last 8 Weeks: No - Immunization History Tetanus Immunization: <5 Years Medications and Allergies Allergies Allergy/AdvReac Type Severity Reaction Status Date / Time morphine Allergy Severe swelling Verified 03/31/18 19:03 Home Medications Medication Instructions Recorded Confirmed Type alprazolam [Xanax] 1 mg PO BID PRN 12/04/17 03/31/18 History hydrocodone-acetaminophen 1 tab PO Q6H PRN 12/04/17 03/31/18 History Exam Vital signs: Vital Signs 03/31/18 17:25 03/31/18 19:06 03/31/18 19:48 Temperature 97.7 F Pulse Rate 107 H 93 H Respiratory Rate 36 H 16 20 Blood Pressure 95/66 L 137/79 Pulse Oximetry 98 92 L 98 03/31/18 20:03 03/31/18 20:51 03/31/18 22:30 Temperature 98 F Pulse Rate 115 H 111 H 101 H Respiratory Rate 28 H 18 Blood Pressure 112/73 118/65 Pulse Oximetry 98 96 97 03/31/18 23:16 04/01/18 00:44 04/01/18 01:30 Temperature Pulse Rate 99 H 91 H 98 H Respiratory Rate 24 24 22 Blood Pressure 117/65 Pulse Oximetry 86 L 94 L 95 04/01/18 01:31 Temperature Pulse Rate Respiratory Rate Blood Pressure Pulse Oximetry 96 Intake & Output 03/31/18 03/31/18 04/01/18 06:59 18:59 06:59 Intake Total 2350 / 2350 Balance 2350 / 2350 Weight 58.513 kg Intake: IV 2350 / 2350 Azithromycin Inj 500 MG In NS 250 / 250 Inj 250 ML @ 250 mls/hr IV.SIG STAT STA Rx#:[id number] Maxipime Inj 2,000 MG In NS Inj 100 / 100 100 ML @ 200 mls/hr IV.SIG STAT STA Rx#:[id number] NS Inj 1,000 ML @ 1000 mls/hr 1999 IV.SIG BOLUS KELLI Rx#:[id number] Narrative: Gen.: No acute distress Head: Normocephalic. Atraumatic. EENT: Pupils equal round and reactive to light. Nose without drainage. Airway intact. Throat without injection. Cardiovascular: Regular rate and rhythm. No murmurs, rubs or gallops. Respiratory: Lungs clear to auscultation bilaterally. No wheezes or rhonchi. Abdomen: Soft, nontender, nondistended. No peritoneal signs. Musculoskeletal: No gross deformities. No edema. Skin: No obvious rashes or erythema. Neuro: Sensory and motor grossly intact. Cranial nerves II through XII grossly intact. Results - Labs CBC & Chem 7: 03/31/18 20:17 03/31/18 20:17 Labs: Laboratory Results - last 24 hr 03/31/18 03/31/18 03/31/18 20:17 20:17 20:17 WBC 6.2 RBC 3.57 L Hgb 11.3 L Hct 33.6 L MCV 94.2 MCH 31.7 MCHC 33.7 RDW 15.8 Plt Count 149 L MPV 9.3 Neut % (Auto) 79.6 H Lymph % (Auto) 6.8 L [place] % (Auto) 13.1 H Eos % (Auto) 0.2 Baso % (Auto) 0.3 Neut # (Auto) 4.9 Lymph # (Auto) 0.4 L [place] # (Auto) 0.8 Eos # (Auto) 0.0 Baso # (Auto) 0.0 WBC Differential . Differential Comment Auto diff final Sodium 134 L Potassium 4.4 Chloride 101 Carbon Dioxide 23.7 Anion Gap 9 BUN 33 H Creatinine 1.46 H Estimated GFR 48 L Random Glucose 109 H Lactic Acid 1.8 Calcium 8.9 Magnesium 2.2 Total Bilirubin 1.7 H AST 40 H ALT 47 Alkaline Phosphatase 89 Total Creatine Kinase 22 L Troponin I Less than 0.02 L Total Protein 8.2 Albumin 2.6 L Lipase 156 Urine Color Urine Clarity Urine pH Ur Specific Dows Urine Protein Urine Glucose (UA) Urine Ketones Urine Occult Blood Urine Nitrate Urine Bilirubin Urine Urobilinogen Ur Leukocyte Esterase Urine RBC Urine WBC Hyaline Casts Micro UA Comment Ur Microscopic Review Urine Culture Comments 03/31/18 21:30 WBC RBC Hgb Hct MCV MCH MCHC RDW Plt Count MPV Neut % (Auto) Lymph % (Auto) [place] % (Auto) Eos % (Auto) Baso % (Auto) Neut # (Auto) Lymph # (Auto) [place] # (Auto) Eos # (Auto) Baso # (Auto) WBC Differential Differential Comment Sodium Potassium Chloride Carbon Dioxide Anion Gap BUN Creatinine Estimated GFR Random Glucose Lactic Acid Calcium Magnesium Total Bilirubin AST ALT Alkaline Phosphatase Total Creatine Kinase Troponin I Total Protein Albumin Lipase Urine Color Yellow Urine Clarity Clear Urine pH 6.0 Ur Specific [place] 1.011 Urine Protein Negative Urine Glucose (UA) Negative Urine Ketones Negative Urine Occult Blood Negative Urine Nitrate Negative Urine Bilirubin Negative Urine Urobilinogen Less than 2 Ur Leukocyte Esterase Negative Urine RBC 2 Urine WBC 12 H Hyaline Casts 4 Micro UA Comment Culture not ind Ur Microscopic Review Not Reportable Urine Culture Comments Culture not ind - Imaging Impressions Chest X-Ray 03/31/18 19:13 CONCLUSION: Stable apparent scarring in the right lung with no evidence of acute pneumonia. Chest CTA 03/31/18 20:22 CONCLUSION: 1. No evidence of pulmonary embolism. 2. New small focal area of coarse infiltrate in the anterior left upper lobe could represent early pneumonia. The consolidative opacity remaining in the right upper lobe majority of which appears to represent scarring. 3. New small right pleural effusion. 4. Underlying emphysema. Line small atrophic right kidney without change. Caprini VTE Risk Assessment Caprini VTE Risk Assessment: Moderate/High Risk (score >= 2) Caprini Risk Assessment Model: Point Value = 1 Point Value = 2 Point Value = 3 Point Value = 5 Age 41-60 Minor surgery BMI > 25 kg/m2 Swollen legs Varicose veins or History of unexplained or recurrent spontaneous Oral contraceptives or hormone replacement Sepsis (< 1 month) Serious lung disease, including pneumonia (< 1 month) Abnormal pulmonary function Acute myocardial infarction Congestive heart failure (< 1 month) History of inflammatory bowel disease Medical patient at bed rest Age 61-74 Arthroscopic surgery Major open surgery (> 45 min) Laparoscopic surgery (> 45 min) Malignancy Confined to bed (> 72 hours) Immobilizing plaster cast Central venous access Age >= 75 History of VTE Family history of VTE Factor V Leiden Prothrombin [id number] Lupus anticoagulant Anticardiolipin antibodies Elevated serum homocysteine Heparin-induced thrombocytopenia Other congenital or acquired thrombophilia Stroke (< 1 month) Elective arthroplasty Hip, pelvis, or leg fracture Acute spinal cord injury (< 1 month) Prophylaxis Regimen: Total Risk Factor Score Risk Level Prophylaxis Regimen 0-1 Low Early ambulation 2 Moderate Order ONE of the following: *Sequential Compression Device (SCD) *Heparin 5000 units SQ BID 3-4 Higher Order ONE of the following medications: *Heparin 5000 units SQ TID *Enoxaparin/Lovenox 40 mg SQ daily (WT < 150 kg, CrCl > 30 mL/min) *Enoxaparin/Lovenox 30 mg SQ daily (WT < 150 kg, CrCl > 10-29 mL/min) *Enoxaparin/Lovenox 30 mg SQ BID (WT < 150 kg, CrCl > 30 mL/min) AND/OR *Sequential Compression Device (SCD) 5 or more Highest Order ONE of the following medications: *Heparin 5000 units SQ TID (Preferred with Epidurals) *Enoxaparin/Lovenox 40 mg SQ daily (WT < 150 kg, CrCl > 30 mL/min) *Enoxaparin/Lovenox 30 mg SQ daily (WT < 150 kg, CrCl > 10-29 mL/min) *Enoxaparin/Lovenox 30 mg SQ BID (WT < 150 kg, CrCl > 30 mL/min) AND *Sequential Compression Device (SCD) Assessment and Plan - Plan Assessment/plan: 1. 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 Small cell lung cancer Chemotherapy completed in October Radiation completed in December with prophylactic brain radiation completed 2 weeks ago Patient complains of persistent vertigo Oncology consulted, appreciate assistance 3. Chronic pain Continue home Percocet FEN Regular diet Electrolytes: Monitor replete as needed Lovenox
[2018-04-01] MEDS: Azithromycin Inj 500 MG in Sodium Chlor 0.9% Inj 250 ML IV.SIG SCH (03:27)
[2018-04-01] MEDS: MethylPREDNISolone Sod Succinate Inj 125 MG/2 ML Vial IV.PUSH SCH ×3 (05:15→17:46)
[2018-04-01] MEDS: Enoxaparin Inj 40 MG/0.4 ML Syringe SQ SCH (09:11)
[2018-04-01] MEDS: Senna/Docusate Sodium 8.6/50 MG Tablet PO SCH ×2 (09:44→20:52)
--- NOTE | 2018-04-01 14:32 | P.DIET ---
Nutritional Evaluation Type of nutrition evaluation: initial Nutrition consult regarding: Diet Evaluation Nutrition screening: Weight Loss > 10 lbs Screening comments: 04/01/18 WLS Objective - Diagnosis pneumonia, hypoxia - Objective Body Mass Index: 18.3 % IBW: 77 (IBW = 166lb) Body Weight Used for Calculations: Actual (58kg) Energy Needs - Lower Range (kCal/kg): 35 Energy Needs - Upper Range (kCal/kg): 40 Lower Limit kCal/kg (kCals): 2,030 Upper Limit kCal/kg (kCals): 2,320 Lower Limit Protein Factor (Grams per Kg): 1.2 Upper Limit Protein Factor (Grams per Kg): 1.4 Lower Protein Needs (Protein): 70 Upper Protein Needs (Protein): 81 Dietitian Reviewed in Medical Record: Current diet, Curent medications, Intake & Output, Labs, Medical history Diet Order: regular Oral Diet Intake Amount: Fair 50-75% Objective Comments: PMH: anxiety, bladder CA, COPD, HTN, Lung CA, pneumonia, sepsis, chemotherapy, radiation Meds: xanax, zofran Labs: BUN 33, Cr 1.46, GFR 48, random glucose 109 LBM 03/30/18 Assessment Assessment: Pt currently at nutritional risk r/t reported unplanned wt loss. Pt currently on a regular diet, consuming around 25-75% per chart. MD note mentioned pt to have poor appetite, vomiting, nausea x 3 days prior to admission. RD to recommend Ensure Enlive TID as PO supplement for additional nutrition. Continue to monitor PO and supplement intake. Monitor renal and glucose labs. Labs reviewed, dietitian following. Recommendations: 1. RD to recommend Ensure Enlive TID as PO supplement for additional nutrition 2. Continue to monitor PO and supplement intake 3. Monitor renal and glucose labs 4. Dietitian following Dietitian to Monitor: Lab values, Renal labs, Glucose level, Supplement acceptance, Intake & Output, Diet tolerance, Weight change, PO Intake, Medical course
[2018-04-01] MEDS ORDERED: Aluminum/Magnesium/Simethacone Susp 30 ML UDC PO ONE (16:00)
--- NOTE | 2018-04-01 16:51 | ECG ---
Date Performed: 03/31/2018 Time Performed: 20:07:21 PTAGE: 68 years EKG: SINUS TACHYCARDIA POSSIBLE RIGHT ATRIAL ENLARGEMENT LEFT ATRIAL ENLARGEMENT When compared t om previous tracing, right atrial enlargement is Now present. ABNORMAL ECG PREVIOUS TRACING : 12/04/2017 06.27 DOCTOR: Milind Oliver Interpretating Date/Time 04/01/2018 16:49:09
--- NOTE | 2018-04-01 18:58 | MB ---
cc: Danay Briceño MD,Benny Trejo MD DATE: 04/01/2018 REFERRING PHYSICIAN: Benny Kilgore MD CHIEF COMPLAINT: Dr. Kilgore requested a consultation for Mr. Alex regarding history of limited stage small cell lung cancer. HISTORY OF PRESENT ILLNESS: Mr. Alex is a 68-year-old man with history of hypertension, depression, transitional cell cancer of the bladder, status post cystectomy with neobladder in the pelvis, chronic tobacco use. 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 He received concurrent chemotherapy and radiation. His last CT PET scan from 03/03/2018 showed reduction in the malignant right upper lobe mass without any abnormal uptake at the site to suggest residual disease. There is left upper lobe parenchymal inflammatory process. There is no distant site of metastatic disease seen. For this reason, he was referred to Dr. Pineda for radiation therapy/prophylactic cranial radiation. Mr. Alex's course was complicated by nausea, decreased appetite, hypotension. He was on Decadron for his prophylactic cranial radiation. He is undergoing a slow taper. During his course of therapy, his blood pressure medication was discontinued. He was offered hydration support for hypotension. He responds to hydration; however, he remains hypotensive. He reports his blood pressure is in the 80s at times. On admission, his blood pressure was in the lower limits of normal at 95/66. At the time of the consultation, blood pressure was 116/57. He complains of extreme fatigue. He gets nausea intermittently. Although he is no longer on chemotherapy, he is still taking antiemetic medication on a p.r.n. basis. He is mildly tachycardic. Laboratory evaluation shows hyponatremia and renal insufficiency. Hematology/oncology is consulted for his diagnosis of small cell lung cancer. He came into the emergency room with shortness of breath. He was walking to the mailbox and got down to his knees because of fatigue. He was breathing hard. On admission, his saturation was 98%. Lowest saturation is 86% late in the evening. CT angiogram was performed that was negative for a pulmonary embolism. It shows a new coarse infiltrate in the anterior left upper lobe and new small right pleural effusion. He has underlying emphysema. Mr. Alex still reports being fatigued. He gets short of breath with activity. He does not want to wear oxygen chronically. We discussed his underlying COPD contributing to his above symptoms. PAST MEDICAL HISTORY: Hypertension, depression, transitional cell cancer, limited stage small cell lung cancer, anemia, history of hepatitis C. PAST SURGICAL HISTORY: Tonsillectomy, port placement, CT-guided right lung biopsy, status post radical cystectomy with neobladder. ALLERGIES: MORPHINE. CURRENT MEDICATIONS: 1. Clover p.r.n. 2. DuoNebs. 3. Xanax. 4. Azithromycin. 5. Cefepime. 6. Enoxaparin. 7. Methylprednisolone. SOCIAL HISTORY: He is a former smoker. He used to smoke cigarettes. He denies any alcohol or illicit drug use. FAMILY HISTORY: He has two daughters. No other cancer. PHYSICAL EXAMINATION: VITAL SIGNS: Temperature 97.3, heart rate 105, respiratory rate 18, blood pressure 116/57. GENERAL: Mr. Alex is a slender man who looks his stated age. He has alopecia. HEENT: His pupils are round, reactive to light and accommodation. Oropharynx is clear. NECK: Supple. LUNGS: Diminished breath sounds throughout. CARDIOVASCULAR: Tachycardia. ABDOMEN: Benign. EXTREMITIES: Lower extremities with no edema. NEUROLOGIC: Nonfocal. LABORATORY DATA: Significant for BUN of 33, creatinine 1.46, total bilirubin 1.7. AST is mildly elevated. CBC significant for hemoglobin 11.3, platelet count 149. ASSESSMENT AND PLAN: Mr. Alex is a 68-year-old man with multiple medical problems. He had a history of hypertension and no longer on antihypertensive medication but has had periods of hypotension with systolic blood pressure in the 80s. He was treated for limited stage small cell lung cancer with concurrent chemotherapy and radiation. He appears to have achieved remission with the last CT/PET scan on 03/03/2018 that was negative for distant site of metastatic disease. He has progressive symptoms, combination of nausea, decreased appetite, hypotension, weakness. We discussed the potential for adrenal insufficiency. He was treated with cranial brain radiation recently. We discussed that his underlying chronic obstructive pulmonary disease certainly contributes to his exercise capacity limitation. Obtain a cortisol level. He may benefit from dexamethasone suppression test or a trial of cosyntropin. He is currently on steroids for his COPD which may treat his underlying adrenal insufficiency if present. We will monitor the new right-sided pleural effusion. This is a new finding relative to CT/PET scan from 03/03/2018. This is concerning for recurrent disease, although no masses associated. Alternatively, underlying pneumonia may be contributing to the above given the chronic changes post his concurrent chemotherapy and radiation noted in the right lung. I defer from diagnostic thoracentesis for now. We will see how he responds to antibiotic therapy. His blood pressure will be monitored while on Solu-Medrol. Cortisol level will be added to his labs from earlier. No specific therapy is required for the mild anemia and thrombocytopenia. His renal function will be monitored. He reports having good p.o. fluid intake. His questions were answered to his satisfaction. MD MARCIA Estrada/klaus , 05:58 PM , 06:15 PM
[2018-04-01] MEDS: Pantoprazole Sodium 20 MG DR Tablet PO SCH (20:52)
[2018-04-01] MEDS ORDERED: Azithromycin Inj 500 MG in Sodium Chlor 0.9% Inj 250 ML IV.SIG SCH (23:00)
[2018-04-02] MEDS: MethylPREDNISolone Sod Succinate Inj 125 MG/2 ML Vial IV.PUSH SCH ×4 (00:01→17:20)
--- NOTE | 2018-04-02 01:16 | MB ---
cc: Syeda Landa MD DATE: 04/01/2018 REASON FOR CONSULTATION: The patient with known small cell lung cancer, admitted with severe fatigue, and CT scan of the chest suggestive of left upper lobe pneumonia. HISTORY OF PRESENT ILLNESS: Mr. Alex is a 68-year-old male, known history of limited small cell lung cancer, post-chemo therapy with good response as well as prophylactic head radiation. PET CT in 02/2018 was without suggestion of recurrent disease. The patient is admitted with severe weakness, fatigue, and a CT angiogram without evidence of pulmonary embolism; however, suggestion of left upper lobe pneumonia. PAST MEDICAL HISTORY: COPD, hypertension, mood disorder, namely depression, transitional cell cancer of the bladder, small cell lung cancer as mentioned above, hepatitis C, and chronic anemia. PAST SURGICAL HISTORY: Previous port placement, needle lung biopsy, radical cystectomy for his bladder cancer. MEDICATIONS: 1. Cefepime. 2. Zithromax. 3. Xanax. 4. DuoNeb. 5. [place]. 6. Enoxaparin prophylaxis. 7. Solu-Medrol. 8. Nebulized albuterol and Ipratropium. ALLERGIES: MORPHINE. SOCIAL HISTORY: Long smoking history, does not smoke at present. Does not use alcohol, does not use drugs. FAMILY HISTORY: Negative for malignancy. REVIEW OF SYSTEMS: A 12-point review of systems as per HPI and past history, otherwise negative. PHYSICAL EXAMINATION: GENERAL: The patient is alert. VITAL SIGNS: Temperature 97 degrees Fahrenheit, pulse 93, respirations 18, blood pressure 110/56. HEENT: Unremarkable. Eyes without icterus. NECK: Without adenopathy or thyroid enlargement. Central trachea. CHEST: A few scattered rhonchi at bases. CARDIAC: PMI not appreciated. S1, S2 audible. No murmur. No rub. ABDOMEN: Lax. Bowel sounds audible. EXTREMITIES: No clubbing, cyanosis, or edema. LABORATORY DATA: White count 6.2, hemoglobin 11.3, hematocrit 33, platelets 149,000. Arterial blood gas: pH 7.43, pCO2 of 32, pO2 of 118 on room air. Sodium 134, potassium 4.4, BUN 33, creatinine 1.4. IMPRESSION: 1. Left upper lobe pneumonia. 2. Chronic obstructive pulmonary disease. 3. Small cell lung cancer. 4. Transitional cell cancer of the bladder. 5. Chronic low blood pressure. 6. Severe tiredness, fatigue, and cachexia. 7. Renal insufficiency. PLAN: The patient has been started on antibiotic therapy for underlying pneumonia and appropriately so. His shortness of breath, which is significant with exertion, seems improving with bronchodilator therapy as well as intravenous steroids. Would continue his antibiotics as well as bronchodilators. We will follow his course along with you. He does have a small right pleural effusion which is new, and this will be followed as well. I do thank you for asking me to partake in Mr. Alex's care. Syeda Landa MD WWW/ , 12:36 AM , 12:45 AM
[2018-04-02] MEDS ORDERED: MethylPREDNISolone Sod Succinate Inj 125 MG/2 ML Vial IV.PUSH SCH (02:00)
[2018-04-02] MEDS: Azithromycin Inj 500 MG in Sodium Chlor 0.9% Inj 250 ML IV.SIG SCH (03:46)
[2018-04-02] MEDS ORDERED: Heparin Central Flush 100 UNIT/ML 5 ML Vial IV.FLUSH PRN ×2 (05:37)
[2018-04-02 08:08] LABS: Baso % (Auto) 0.1 % (0.0-2.0); Hematocrit 26.5 % (39.0-51.0); Hemoglobin 8.8 gm/dL (13.0-17.0); Lymph # (Auto) 0.2 th/mm3 (1.0-4.8); Lymph % (Auto) 2.1 % (9.0-44.0); Mean Corpuscular HGB Conc 33.1 % (32.0-36.0); Mean Corpuscular Hemoglobin 32.2 pg (27.0-34.0); Mean Corpuscular Volume 97.1 fL (80.0-100.0); Mean Platelet Volume 9.3 fL (7.0-11.0); Mono # (Auto) 0.4 th/mm3 (0.0-0.9); Mono % (Auto) 4.5 % (0.0-8.0); Neut # (Auto) 9.3 th/mm3 (1.8-7.7); Neut % (Auto) 93.3 % (16.0-70.0); Platelet Count 117 th/mm3 (150-450); Red Blood Count 2.73 mil/mm3 (4.50-5.90); Red Cell Distribution Width 15.6 % (11.6-17.2); White Blood Count 9.9 th/mm3 (4.0-11.0)
[2018-04-02 08:30] LABS: Calcium 8.8 mg/dL (8.5-10.1); Carbon Dioxide 22.9 meq/L (21.0-32.0)
[2018-04-02] MEDS: Enoxaparin Inj 40 MG/0.4 ML Syringe SQ SCH (08:39)
[2018-04-02] MEDS: Senna/Docusate Sodium 8.6/50 MG Tablet PO SCH ×2 (08:39→20:51)
[2018-04-02] MEDS: Pantoprazole Sodium 20 MG DR Tablet PO SCH ×2 (08:39→20:51)
--- NOTE | 2018-04-02 09:47 | P.PN ---
Subjective Interval history: alert appetite better no SOB at rest Physical Exam Vital signs: Vital Signs 04/01/18 12:00 04/01/18 12:01 04/01/18 13:21 Temperature 97.4 F L Pulse Rate 97 H 91 H Respiratory Rate 16 18 Blood Pressure 89/53 L 90/57 L Pulse Oximetry 96 04/01/18 15:57 04/01/18 16:00 04/01/18 20:35 Temperature 97.3 F L 97.4 F L Pulse Rate 95 H 105 H 90 Respiratory Rate 16 18 20 Blood Pressure 116/57 L 110/74 Pulse Oximetry 100 93 L 04/01/18 20:50 04/01/18 20:52 04/02/18 00:22 Temperature Pulse Rate 101 H 84 Respiratory Rate 18 18 16 Blood Pressure Pulse Oximetry 94 L 04/02/18 00:55 04/02/18 03:46 04/02/18 04:02 Temperature 97.5 F L Pulse Rate 101 H 95 H Respiratory Rate 24 18 16 Blood Pressure 131/77 Pulse Oximetry 95 04/02/18 05:00 04/02/18 08:00 04/02/18 08:56 Temperature 97.3 F L 97.5 F L Pulse Rate 109 H 99 H 97 H Respiratory Rate 22 14 22 Blood Pressure 101/58 L 100/59 L Pulse Oximetry 95 93 L 98 04/02/18 09:29 Temperature Pulse Rate Respiratory Rate Blood Pressure Pulse Oximetry 96 Intake & Output 04/01/18 04/02/18 04/02/18 18:59 06:59 18:59 Intake Total 100 / 100 1050 / 1050 100 / 100 Balance 100 / 100 1050 / 1050 100 / 100 Weight 57.9 kg Intake: IV 100 / 100 450 / 450 100 / 100 Azithromycin Inj 500 MG In NS 250 / 250 Inj 250 ML @ 250 mls/hr IV.SIG Q24H KELLI Rx#:[id number] Maxipime Inj 2,000 MG In NS Inj 100 / 100 200 / 200 100 / 100 100 ML @ 200 mls/hr IV.SIG Q8H KELLI Rx#:[id number] Oral 600 / 600 Other: # Voids 2 2 Date of Last Bowel Movement 03/30/18 03/30/18 03/30/18 # Bowel Movements 0 Narrative: Gen.: No acute distress Head: Normocephalic. Atraumatic. EENT: Pupils equal round and reactive to light. Nose without drainage. Airway intact. Throat without injection. Cardiovascular: Regular rate and rhythm. No murmurs, rubs or gallops. Respiratory: Lungs clear to auscultation bilaterally. No wheezes or rhonchi. Abdomen: Soft, nontender, nondistended. No peritoneal signs. Musculoskeletal: No gross deformities. No edema. Skin: No obvious rashes or erythema. Neuro: Sensory and motor grossly intact. Cranial nerves II through XII grossly intact. Results - Labs CBC & Chem 7: 04/02/18 06:35 04/02/18 06:35 Laboratory Results - last 24 hr 04/01/18 04/02/18 04/02/18 21:02 06:35 06:35 WBC 9.9 RBC 2.73 L Hgb 8.8 L D Hct 26.5 L MCV 97.1 MCH 32.2 MCHC 33.1 RDW 15.6 Plt Count 117 L MPV 9.3 Neut % (Auto) 93.3 H Lymph % (Auto) 2.1 L [place] % (Auto) 4.5 Eos % (Auto) 0.0 Baso % (Auto) 0.1 Neut # (Auto) 9.3 H Lymph # (Auto) 0.2 L [place] # (Auto) 0.4 Eos # (Auto) 0.0 Baso # (Auto) 0.0 WBC Differential . Differential Comment Auto diff final Sodium 139 Potassium 5.0 Chloride 108 H Carbon Dioxide 22.9 Anion Gap 8 BUN 32 H Creatinine 1.21 Estimated GFR 60 L Random Glucose 139 H Calcium 8.8 Cortisol 22.0 Microbiology 03/31/18 20:17 Blood - Peripheral Aerobic Blood Culture - Preliminary No growth in 1 day 03/31/18 20:17 Blood - Peripheral Anaerobic Blood Culture - Preliminary No growth in 1 day 03/31/18 20:10 Blood - Peripheral Aerobic Blood Culture - Preliminary No growth in 1 day 03/31/18 20:10 Blood - Peripheral Anaerobic Blood Culture - Preliminary No growth in 1 day Assessment and Plan - Plan PNEUMONIA LUNG CANCER COPD ACID REFLUX PLAN O2 NEEDED BRONCHODILATOR THERPY ANTIBIOTICS F/U CXRAY CHECK PFT
--- NOTE | 2018-04-02 14:54 | P.PN ---
Subjective Interval history: 68 years old male just completed radiation therapy 2 weeks ago since then shortness of breath afebrile feeling slightly better today now afebrile minimal dry cough up and ambulated today denies any fever Physical Exam Vital signs: Vital Signs 04/01/18 15:57 04/01/18 16:00 04/01/18 20:35 Temperature 97.3 F L 97.4 F L Pulse Rate 95 H 105 H 90 Respiratory Rate 16 18 20 Blood Pressure 116/57 L 110/74 Pulse Oximetry 100 93 L 04/01/18 20:50 04/01/18 20:52 04/02/18 00:22 Temperature Pulse Rate 101 H 84 Respiratory Rate 18 18 16 Blood Pressure Pulse Oximetry 94 L 04/02/18 00:55 04/02/18 03:46 04/02/18 04:02 Temperature 97.5 F L Pulse Rate 101 H 95 H Respiratory Rate 24 18 16 Blood Pressure 131/77 Pulse Oximetry 95 04/02/18 05:00 04/02/18 08:00 04/02/18 08:56 Temperature 97.3 F L 97.5 F L Pulse Rate 109 H 99 H 97 H Respiratory Rate 22 14 22 Blood Pressure 101/58 L 100/59 L Pulse Oximetry 95 93 L 98 04/02/18 09:29 04/02/18 12:00 04/02/18 12:39 Temperature 97.3 F L Pulse Rate 95 H 103 H Respiratory Rate 14 23 Blood Pressure 118/61 Pulse Oximetry 96 92 L Intake & Output 04/01/18 04/02/18 04/02/18 18:59 06:59 18:59 Intake Total 100 / 100 1050 / 1050 100 / 100 Balance 100 / 100 1050 / 1050 100 / 100 Weight 57.9 kg Intake: IV 100 / 100 450 / 450 100 / 100 Azithromycin Inj 500 MG In NS 250 / 250 Inj 250 ML @ 250 mls/hr IV.SIG Q24H KELLI Rx#:[id number] Maxipime Inj 2,000 MG In NS Inj 100 / 100 200 / 200 100 / 100 100 ML @ 200 mls/hr IV.SIG Q8H KELLI Rx#:[id number] Oral 600 / 600 Other: # Voids 2 2 Date of Last Bowel Movement 03/30/18 03/30/18 03/30/18 # Bowel Movements 0 Narrative: Gen.: No acute distress Head: Normocephalic. Atraumatic. EENT: Pupils equal round and reactive to light. throat- no exudates Cardiovascular: Regular rhythm Respiratory: decreased breath sounds, no rales, no wheezes Abdomen: Soft, nontender, nondistended. No peritoneal signs. No edema. Skin: No obvious rashes or erythema. Neuro: Sensory and motor grossly intact. Cranial nerves II through XII grossly intact. Results - Labs CBC & Chem 7: 04/04/18 05:41 04/04/18 05:41 Laboratory Results - last 24 hr 04/01/18 04/02/18 04/02/18 21:02 06:35 06:35 WBC 9.9 RBC 2.73 L Hgb 8.8 L D Hct 26.5 L MCV 97.1 MCH 32.2 MCHC 33.1 RDW 15.6 Plt Count 117 L MPV 9.3 Neut % (Auto) 93.3 H Lymph % (Auto) 2.1 L [place] % (Auto) 4.5 Eos % (Auto) 0.0 Baso % (Auto) 0.1 Neut # (Auto) 9.3 H Lymph # (Auto) 0.2 L [place] # (Auto) 0.4 Eos # (Auto) 0.0 Baso # (Auto) 0.0 WBC Differential . Differential Comment Auto diff final Sodium 139 Potassium 5.0 Chloride 108 H Carbon Dioxide 22.9 Anion Gap 8 BUN 32 H Creatinine 1.21 Estimated GFR 60 L Random Glucose 139 H Calcium 8.8 Cortisol 22.0 Microbiology 03/31/18 20:17 Blood - Peripheral Aerobic Blood Culture - Preliminary No growth in 2 days 03/31/18 20:17 Blood - Peripheral Anaerobic Blood Culture - Preliminary No growth in 2 days 03/31/18 20:10 Blood - Peripheral Aerobic Blood Culture - Preliminary No growth in 2 days 03/31/18 20:10 Blood - Peripheral Anaerobic Blood Culture - Preliminary No growth in 2 days Assessment and Plan - Plan 68 years old male states Generalized deconditioning for 2 weeks now right after completing brain radiation therapy Possible Adrenal insufficiency - on history is on Steroids - Dexamethasone taper for his prophylactic cranial radiation therapy - ? possible adrenal insufficiency - Hematology ff- may need further testing for this - currently on IV steroids for COPD - PT consult - Shortness of breath/pneumonia/COPD Chest CTA negative for PE but shows small focal area of coarse infiltrate in the anterior left upper lobe concerning for early pneumonia ABG 7.42/32/118/20 Cefepime and azithromycin Duo nebs IV steroids- Solumedrol q 8 Blood cultures pending seen by Dr. Landa- PFTs ordered Small cell lung cancer Chemotherapy completed in October Radiation completed in December with prophylactic brain radiation completed 2 weeks ago Patient complains of persistent vertigo PT consult Oncology consulted, appreciate assistance cortsiol level,- normal Chronic pain Continue home Percocet RAYMON- - gentle IVF - NS 7- cc.hr x 1 L - BMP in am FEN Regular diet Electrolytes: Monitor replete as needed Lovenox
[2018-04-02] MEDS ORDERED: Sod Chloride 0.9% Inj 1,000 ML IV.CONT SCH (16:00)
--- NOTE | 2018-04-02 18:32 | P.PNONC ---
Subjective Interval history: Feeling better but at home and have to make my own food. Daughter at bedside plans to make meals for her father. Dietitian from outpatient oncology clinic is in contact with patient and provide some with supplements. Objective Vital Signs/Intake & Output: Vital Signs 04/01/18 20:35 04/01/18 20:50 04/01/18 20:52 Temperature 97.4 F L Pulse Rate 90 101 H Respiratory Rate 20 18 18 Blood Pressure 110/74 Pulse Oximetry 93 L 94 L 04/02/18 00:22 04/02/18 00:55 04/02/18 03:46 Temperature 97.5 F L Pulse Rate 84 101 H Respiratory Rate 16 24 18 Blood Pressure 131/77 Pulse Oximetry 95 04/02/18 04:02 04/02/18 05:00 04/02/18 08:00 Temperature 97.3 F L 97.5 F L Pulse Rate 95 H 109 H 99 H Respiratory Rate 16 22 14 Blood Pressure 101/58 L 100/59 L Pulse Oximetry 95 93 L 04/02/18 08:56 04/02/18 09:29 04/02/18 12:00 Temperature 97.3 F L Pulse Rate 97 H 95 H Respiratory Rate 22 14 Blood Pressure 118/61 Pulse Oximetry 98 96 92 L 04/02/18 12:39 04/02/18 16:57 Temperature Pulse Rate 103 H 95 H Respiratory Rate 23 18 Blood Pressure Pulse Oximetry Intake & Output 04/01/18 04/02/18 04/02/18 18:59 06:59 18:59 Intake Total 100 / 100 1050 / 1050 100 / 100 Balance 100 / 100 1050 / 1050 100 / 100 Weight 57.9 kg Intake: IV 100 / 100 450 / 450 100 / 100 Azithromycin Inj 500 MG In NS 250 / 250 Inj 250 ML @ 250 mls/hr IV.SIG Q24H [facility]I Rx#:[id number] Maxipime Inj 2,000 MG In NS Inj 100 / 100 200 / 200 100 / 100 100 ML @ 200 mls/hr IV.SIG Q8H WALI Rx#:[id number] Oral 600 / 600 Other: # Voids 2 2 Date of Last Bowel Movement 03/30/18 03/30/18 03/30/18 # Bowel Movements 0 Result Diagrams: 04/02/18 06:35 04/02/18 06:35 Laboratory Results: Laboratory Results - last 24 hr 04/01/18 04/02/18 04/02/18 21:02 06:35 06:35 WBC 9.9 RBC 2.73 L Hgb 8.8 L D Hct 26.5 L MCV 97.1 MCH 32.2 MCHC 33.1 RDW 15.6 Plt Count 117 L MPV 9.3 Neut % (Auto) 93.3 H Lymph % (Auto) 2.1 L [place] % (Auto) 4.5 Eos % (Auto) 0.0 Baso % (Auto) 0.1 Neut # (Auto) 9.3 H Lymph # (Auto) 0.2 L [place] # (Auto) 0.4 Eos # (Auto) 0.0 Baso # (Auto) 0.0 WBC Differential . Differential Comment Auto diff final Sodium 139 Potassium 5.0 Chloride 108 H Carbon Dioxide 22.9 Anion Gap 8 BUN 32 H Creatinine 1.21 Estimated GFR 60 L Random Glucose 139 H Calcium 8.8 Cortisol 22.0 Culture Results: Microbiology 03/31/18 20:17 Aerobic Blood Culture - Preliminary Blood - Peripheral No growth in 2 days Anaerobic Blood Culture - Preliminary No growth in 2 days 03/31/18 20:10 Aerobic Blood Culture - Preliminary Blood - Peripheral No growth in 2 days Anaerobic Blood Culture - Preliminary No growth in 2 days 03/31/18 20:17 Influenza Types A,B Antigen - Final Nasal Wash Negative for FLU A and B antigen Infection due to influenza A or B cannot be ruled out since the antigen present in the sample may be below the detection limit of the test. Medications: Active Medications Generic Name Dose Route Start Last Admin Trade Name Freq PRN Reason Stop Dose Admin Hydrocodone Bitart/Acetaminophen 1 tab 04/01/18 01:53 04/02/18 17:15 [place] 10/325 PO 1 tab Q6H PRN Administration Acute Pain 1-10 Albuterol 1 ampul 04/01/18 04:00 04/02/18 16:55 Duoneb Neb (Wali) NEB 1 ampul Q4HR NEB WALI Administration Alprazolam 1 mg 04/01/18 01:53 04/02/18 00:10 Xanax PO 1 mg BID PRN Administration Anxiety Enoxaparin Sodium 40 mg 04/01/18 09:00 04/02/18 08:39 Lovenox Inj SQ 40 mg Q24H WALI Administration Heparin Sodium (Porcine) 250 unit 04/02/18 05:37 04/02/18 06:03 Heparin Central Flush IV.FLUSH 250 unit PRN PRN Administration Flush Infusapot Cefepime HCl 2,000 mg/ Sodium 100 mls @ 200 mls/hr 04/01/18 09:00 04/02/18 17 :14 Chloride IV.SIG 200 mls/hr Q8H WALI Administration Sodium Chloride 1,000 mls @ 70 mls/hr 04/02/18 16:00 04/02/18 16:00 Ns Inj IV.CONT 04/03/18 06:17 70 mls/hr .[id number] WALI Administration Ondansetron HCl 4 mg 04/01/18 01:53 04/01/18 12:53 Zofran Inj IV.PUSH 4 mg Q6H PRN Administration NAUSEA OR VOMITING Pantoprazole Sodium 20 mg 04/01/18 21:00 04/02/18 08:39 Protonix PO 20 mg BID WALI Administration Senna/Docusate Sodium 1 tab 04/01/18 09:00 04/02/18 08:39 Radha-Colace PO 1 tab BID WALI Administration Sodium Chloride 2 ml 04/01/18 09:00 04/02/18 08:47 Ns Flush IV.FLUSH 2 ml BID WALI Administration Objective Remarks: GENERAL: Slender tanned well-developed patient. SKIN: Warm and dry. HEAD: Normocephalic. Alopecia. EYES: No scleral icterus. No injection or drainage. NECK: Supple, trachea midline. No JVD or lymphadenopathy. LYMPHATIC: No adenopathy. CARDIOVASCULAR: Regular rate and rhythm without murmurs. RESPIRATORY: Diminished breath sounds throughout. No wheezing. GASTROINTESTINAL: Abdomen soft, non-tender, nondistended. EXTREMITIES: No cyanosis, or edema. MUSCULOSKELETAL: Adequate muscle tone. NEUROLOGICAL: No obvious focal deficit. Awake, alert, and oriented x3. PSYCHIATRIC: Appropriate mood and affect; insight and judgment normal. Assessment/Plan - Plan 68-year-old man with history of bladder cancer, diagnosed with limited stage small cell lung cancer treated with concurrent chemotherapy and radiation. His course is complicated by COPD. He is admitted for COPD exacerbation versus pneumonia. His course is further complicated by bouts of hypotension and weakness. Adrenal insufficiency suspected but unable to confirm given that he is on steroids currently. Discussed at length with patient and his daughter portion of the consultation the findings of normal cortisol level in the afternoon. We will follow his blood pressure as his prednisone is tapered for COPD. Morning cortisol level and ACTH stimulation test may be necessary to confirm the adrenal insufficiency and etiology. While on prednisone he is advised to hold dexamethasone prescribed by the radiation oncologist. He has no headaches. His nausea is resolved. He has more energy definitely while on steroids. He is advised to keep his follow-up appointment. We will follow-up with his port flush which may need TPA if unable to draw back. Restaging evaluation is coordinated as an outpatient. There is no evidence of recurrent disease and most recent CT scan of the chest. Okay for discharge from oncology standpoint with follow-up on an outpatient basis.
[2018-04-03] MEDS: MethylPREDNISolone Sod Succinate Inj 125 MG/2 ML Vial IV.PUSH SCH ×3 (02:10→17:03)
[2018-04-03 07:13] LABS: Calcium 8.6 mg/dL (8.5-10.1); Carbon Dioxide 24.6 meq/L (21.0-32.0); Potassium 4.9 meq/L (3.5-5.1)
[2018-04-03] MEDS: Pantoprazole Sodium 20 MG DR Tablet PO SCH ×2 (08:40→20:12)
[2018-04-03] MEDS: Azithromycin 250 MG Tablet PO SCH (08:40)
[2018-04-03] MEDS: Enoxaparin Inj 40 MG/0.4 ML Syringe SQ SCH (08:41)
[2018-04-03] MEDS: Senna/Docusate Sodium 8.6/50 MG Tablet PO SCH ×2 (08:54→20:12)
--- NOTE | 2018-04-03 10:06 | P.PNONC ---
Subjective Interval history: Afebrile. Patient lying in bed, eating breakfast, no acute distress. He reports continued dyspnea on exertion. Denies dyspnea at rest. This has been his baseline for some time. He has no other complaints at this time, stating that he is ready to go home. Objective Vital Signs/Intake & Output: Vital Signs 04/02/18 12:00 04/02/18 12:39 04/02/18 16:00 Temperature 97.3 F L 97.5 F L Pulse Rate 95 H 103 H 100 H Respiratory Rate 14 23 14 Blood Pressure 118/61 117/63 Pulse Oximetry 92 L 96 04/02/18 16:57 04/02/18 19:10 04/02/18 19:26 Temperature 97.2 F L Pulse Rate 95 H 94 H 101 H Respiratory Rate 18 17 18 Blood Pressure 109/58 L Pulse Oximetry 94 L 97 04/02/18 23:36 04/03/18 01:00 04/03/18 03:30 Temperature 97.8 F 97.7 F Pulse Rate 91 H 75 Respiratory Rate 18 16 18 Blood Pressure 97/56 L 93/55 L Pulse Oximetry 95 95 04/03/18 03:56 04/03/18 08:00 04/03/18 08:17 Temperature 98.2 F Pulse Rate 95 H 96 H 99 H Respiratory Rate 16 14 18 Blood Pressure 127/60 Pulse Oximetry 95 97 Intake & Output 04/02/18 04/03/18 04/03/18 18:59 06:59 18:59 Intake Total 200 / 200 460 / 460 Balance 200 / 200 460 / 460 Weight 57.9 kg Intake: IV 200 / 200 100 / 100 Maxipime Inj 2,000 MG In NS Inj 200 / 200 100 / 100 100 ML @ 200 mls/hr IV.SIG Q8H WALI Rx#:[id number] Oral 360 / 360 Other: # Voids 4 4 Date of Last Bowel Movement 03/30/18 03/30/18 # Bowel Movements 0 Result Diagrams: 04/02/18 06:35 04/03/18 06:24 Laboratory Results: Laboratory Results - last 24 hr 04/03/18 06:24 Sodium 141 Potassium 4.9 Chloride 109 H Carbon Dioxide 24.6 Anion Gap 7 BUN 34 H Creatinine 1.28 Estimated GFR 56 L Random Glucose 117 H Calcium 8.6 Culture Results: Microbiology 03/31/18 20:17 Aerobic Blood Culture - Preliminary Blood - Peripheral No growth in 2 days Anaerobic Blood Culture - Preliminary No growth in 2 days 03/31/18 20:10 Aerobic Blood Culture - Preliminary Blood - Peripheral No growth in 2 days Anaerobic Blood Culture - Preliminary No growth in 2 days 03/31/18 20:17 Influenza Types A,B Antigen - Final Nasal Wash Negative for FLU A and B antigen Infection due to influenza A or B cannot be ruled out since the antigen present in the sample may be below the detection limit of the test. Medications: Active Medications Generic Name Dose Route Start Last Admin Trade Name Freq PRN Reason Stop Dose Admin Hydrocodone Bitart/Acetaminophen 1 tab 04/01/18 01:53 04/03/18 06:12 [place] 10/325 PO 1 tab Q6H PRN Administration Acute Pain 1-10 Albuterol 1 ampul 04/01/18 04:00 04/03/18 08:15 Duoneb Neb ([place]) NEB 1 ampul Q4HR NEB WALI Administration Alprazolam 1 mg 04/01/18 01:53 04/02/18 00:10 Xanax PO 1 mg BID PRN Administration Anxiety Azithromycin 500 mg 04/03/18 09:00 04/03/18 08:40 Zithromax PO 500 mg DAILY WALI Administration Enoxaparin Sodium 40 mg 04/01/18 09:00 04/03/18 08:41 Lovenox Inj SQ 40 mg Q24H WALI Administration Heparin Sodium (Porcine) 250 unit 04/02/18 05:37 04/02/18 06:03 Heparin Central Flush IV.FLUSH 250 unit PRN PRN Administration Flush Infusapot Cefepime HCl 2,000 mg/ Sodium 100 mls @ 200 mls/hr 04/01/18 09:00 04/03/18 08 :54 Chloride IV.SIG 200 mls/hr Q8H WALI Administration Lactulose 30 ml 04/01/18 01:53 04/02/18 20:50 Lactulose Liq PO 30 ml DAILY PRN Administration SEVERE CONSITIPATION Methylprednisolone Sodium Succinate 60 mg 04/03/18 02:00 04/03/18 02:10 Solumedrol Inj IV.PUSH 60 mg Q8H WALI Administration Ondansetron HCl 4 mg 04/01/18 01:53 04/01/18 12:53 Zofran Inj IV.PUSH 4 mg Q6H PRN Administration NAUSEA OR VOMITING Pantoprazole Sodium 20 mg 04/01/18 21:00 04/03/18 08:40 Protonix PO 20 mg BID WALI Administration Senna/Docusate Sodium 1 tab 04/01/18 09:00 04/03/18 08:54 Radha-Colace PO 1 tab BID WALI Administration Sodium Chloride 2 ml 04/01/18 09:00 04/03/18 08:54 Ns Flush IV.FLUSH Not Given BID WALI Objective Remarks: GENERAL: Well-nourished, well-developed male patient, no acute distress. SKIN: Warm and dry. HEAD: Normocephalic. EYES: No scleral icterus. No injection or drainage. NECK: Supple, trachea midline. CARDIOVASCULAR: Regular rate and rhythm without murmurs. RESPIRATORY: Posterior breath sounds diminished throughout, equal bilaterally. No wheezing. No accessory muscle use. GASTROINTESTINAL: Abdomen soft, non-tender, nondistended. EXTREMITIES: No cyanosis, or edema. MUSCULOSKELETAL: Adequate muscle tone. NEUROLOGICAL: No obvious focal deficit. Awake, alert, and oriented x3. PSYCHIATRIC: Appropriate mood and affect; insight and judgment normal. Assessment/Plan - Plan 68-year-old man with history of bladder cancer, diagnosed with limited stage small cell lung cancer treated with concurrent chemotherapy and radiation. His course is complicated by COPD. He is admitted for COPD exacerbation versus pneumonia. His course is further complicated by bouts of hypotension and weakness. Adrenal insufficiency suspected but unable to confirm given that he is on steroids currently. Plan: 1. Limited stage small cell lung cancer, restaging evaluation per outpatient oncology. Keep outpatient appointment. 2. Possible adrenal insufficiency, may need morning cortisol level and ACTH stimulation test as an outpatient. 3. COPD versus pneumonia, continues on antibiotics per attending. 4. Patient cleared for discharge from an oncology standpoint and should maintain his scheduled outpatient appointment.
--- NOTE | 2018-04-03 15:26 | P.PNIM ---
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 Patient laying in bed, stated he is feeling better, stated he has been moving around walking without a problem and is ready to go home. Patient denies any chest pain or shortness of breath, denies any fever or chills, denies any coughing, headache or dizziness. Patient denies any abdominal pain, nausea, vomiting, diarrhea or constipation. Physical Exam Vital signs: Vital Signs 04/02/18 16:00 04/02/18 16:57 04/02/18 19:10 Temperature 97.5 F L 97.2 F L Pulse Rate 100 H 95 H 94 H Respiratory Rate 14 18 17 Blood Pressure 117/63 109/58 L Pulse Oximetry 96 94 L 04/02/18 19:26 04/02/18 23:36 04/03/18 01:00 Temperature 97.8 F Pulse Rate 101 H 91 H Respiratory Rate 18 18 16 Blood Pressure 97/56 L Pulse Oximetry 97 95 04/03/18 03:30 04/03/18 03:56 04/03/18 08:00 Temperature 97.7 F 98.2 F Pulse Rate 75 95 H 96 H Respiratory Rate 18 16 14 Blood Pressure 93/55 L 127/60 Pulse Oximetry 95 95 04/03/18 08:17 04/03/18 12:00 04/03/18 12:12 Temperature 97.9 F Pulse Rate 99 H 99 H 99 H Respiratory Rate 18 14 18 Blood Pressure 129/75 Pulse Oximetry 97 99 Intake & Output 04/02/18 04/03/18 04/03/18 18:59 06:59 18:59 Intake Total 200 / 200 460 / 460 100 / 100 Balance 200 / 200 460 / 460 100 / 100 Weight 57.9 kg Intake: IV 200 / 200 100 / 100 100 / 100 Maxipime Inj 2,000 MG In NS Inj 200 / 200 100 / 100 100 / 100 100 ML @ 200 mls/hr IV.SIG Q8H KELLI Rx#:[id number] Oral 360 / 360 Other: # Voids 4 4 Date of Last Bowel Movement 03/30/18 03/30/18 03/30/18 # Bowel Movements 0 Narrative: GENERAL: Well-developed, well-nourished -[place] male, laying in bed in no apparent distress SKIN: Warm and dry. HEAD: Atraumatic. Normocephalic. EYES: Pupils equal and round. No scleral icterus. No injection or drainage. NECK: Trachea midline. No JVD. CARDIOVASCULAR: Regular rate and rhythm. RESPIRATORY: No accessory muscle use. Clear to auscultation. Breath sounds equal bilaterally. No wheezes or rhonchi GASTROINTESTINAL: Abdomen soft, non-tender, nondistended. Hepatic and splenic margins not palpable. MUSCULOSKELETAL: Extremities without clubbing, cyanosis, or edema. No obvious deformities. NEUROLOGICAL: Awake and alert. No obvious cranial nerve deficits. Motor grossly within normal limits. Five out of 5 muscle strength in the arms and legs. Normal speech. PSYCHIATRIC: Appropriate mood and affect; insight and judgment normal. 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 And check for cortisol level and ACTH stimulation test as an outpatient -Cortisol level unremarkable Chronic pain Continue home Percocet as needed DVT prophylaxis: Lovenox
--- NOTE | 2018-04-04 00:07 | P.PN ---
Subjective Interval history: ALERT NO SOB AT REST Physical Exam Vital signs: Vital Signs 04/03/18 01:00 04/03/18 03:30 04/03/18 03:56 Temperature 97.7 F Pulse Rate 75 95 H Respiratory Rate 16 18 16 Blood Pressure 93/55 L Pulse Oximetry 95 04/03/18 08:00 04/03/18 08:17 04/03/18 12:00 Temperature 98.2 F 97.9 F Pulse Rate 96 H 99 H 99 H Respiratory Rate 14 18 14 Blood Pressure 127/60 129/75 Pulse Oximetry 95 97 99 04/03/18 12:12 04/03/18 16:00 04/03/18 19:26 Temperature 97.1 F L 97.9 F Pulse Rate 99 H 81 94 H Respiratory Rate 18 14 18 Blood Pressure 113/71 115/60 Pulse Oximetry 96 95 Intake & Output 04/03/18 04/03/18 04/04/18 06:59 18:59 06:59 Intake Total 460 / 460 200 / 200 Balance 460 / 460 200 / 200 Weight 57.9 kg Intake: IV 100 / 100 200 / 200 Maxipime Inj 2,000 MG In NS Inj 100 / 100 200 / 200 100 ML @ 200 mls/hr IV.SIG Q8H KELLI Rx#:[id number] Oral 360 / 360 Other: # Voids 4 Date of Last Bowel Movement 03/30/18 04/03/18 04/03/18 # Bowel Movements 0 1 Narrative: Gen.: No acute distress Head: Normocephalic. Atraumatic. EENT: Pupils equal round and reactive to light. throat- no exudates Cardiovascular: Regular rhythm Respiratory: decreased breath sounds, no rales, no wheezes Abdomen: Soft, nontender, nondistended. No peritoneal signs. No edema. Skin: No obvious rashes or erythema. Neuro: Sensory and motor grossly intact. Cranial nerves II through XII grossly intact. Results - Labs CBC & Chem 7: 04/02/18 06:35 04/03/18 06:24 Laboratory Results - last 24 hr 04/03/18 06:24 Sodium 141 Potassium 4.9 Chloride 109 H Carbon Dioxide 24.6 Anion Gap 7 BUN 34 H Creatinine 1.28 Estimated GFR 56 L Random Glucose 117 H Calcium 8.6 Microbiology 03/31/18 20:17 Blood - Peripheral Aerobic Blood Culture - Preliminary No growth in 3 days 03/31/18 20:17 Blood - Peripheral Anaerobic Blood Culture - Preliminary No growth in 3 days 03/31/18 20:10 Blood - Peripheral Aerobic Blood Culture - Preliminary No growth in 3 days 03/31/18 20:10 Blood - Peripheral Anaerobic Blood Culture - Preliminary No growth in 3 days Assessment and Plan - Plan PNEUMONIA LUNG CANCER COPD ACID REFLUX PLAN O2 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
[2018-04-04] MEDS: MethylPREDNISolone Sod Succinate Inj 125 MG/2 ML Vial IV.PUSH SCH ×4 (01:25→19:00)
[2018-04-04 06:23] LABS: Baso % (Auto) 0.1 % (0.0-2.0); Hematocrit 27.3 % (39.0-51.0); Lymph # (Auto) 0.2 th/mm3 (1.0-4.8); Lymph % (Auto) 2.7 % (9.0-44.0); Mean Corpuscular Hemoglobin 31.6 pg (27.0-34.0); Mean Corpuscular Volume 95.9 fL (80.0-100.0); Mean Platelet Volume 9.1 fL (7.0-11.0); Mono # (Auto) 0.5 th/mm3 (0.0-0.9); Mono % (Auto) 5.4 % (0.0-8.0); Neut # (Auto) 7.7 th/mm3 (1.8-7.7); Neut % (Auto) 91.8 % (16.0-70.0); Platelet Count 118 th/mm3 (150-450); Red Blood Count 2.84 mil/mm3 (4.50-5.90); Red Cell Distribution Width 16.1 % (11.6-17.2); White Blood Count 8.4 th/mm3 (4.0-11.0)
[2018-04-04 06:44] LABS: Albumin 2.2 g/dL (3.4-5.0); Anion Gap 4 meq/L (5-15); Aspartate Aminotransferase 93 U/L (15-37); Blood Urea Nitrogen 32 mg/dL (7-18); Calcium 8.3 mg/dL (8.5-10.1); Carbon Dioxide 31.6 meq/L (21.0-32.0); Chloride 106 meq/L (98-107); Glomerular Filtration Rate 62 mL/min (>89); Glucose,Random 124 mg/dL (74-106); Potassium 4.6 meq/L (3.5-5.1); Sodium 142 meq/L (136-145)
[2018-04-04 06:48] LABS: Alanine Aminotransferase 115 U/L (12-78); Alkaline Phosphatase 85 U/L (45-117); Total Protein 6.4 g/dL (6.4-8.2)
[2018-04-04] MEDS: Senna/Docusate Sodium 8.6/50 MG Tablet PO SCH ×2 (08:34→21:54)
[2018-04-04] MEDS: Enoxaparin Inj 40 MG/0.4 ML Syringe SQ SCH (08:34)
[2018-04-04] MEDS: Pantoprazole Sodium 20 MG DR Tablet PO SCH ×2 (08:34→21:54)
[2018-04-04] MEDS: Azithromycin 250 MG Tablet PO SCH (08:34)
--- NOTE | 2018-04-04 10:44 | P.DCO ---
Physical Therapy Order: Evaluate and treat, Improve ambulation and Strength and gait training Home Health Nursing Order: Medical education, Signs/symptoms of disease process, Medication education-adverse effect and Nursing assessment with vital signs Case Management Consult Case Management Consult-Home Health: Yes I have seen patient Sonny Alex on 04/04/18. My clinical findings support the need for the requested home health care services because: I certify that my clinical findings support that this patient is homebound because:
--- NOTE | 2018-04-04 10:51 | P.PNIM ---
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 Patient seen and examined laying in bed, stated he is feeling better, and stated ready to go home. Patient stated he lives alone, his just passed recently. Patient denies any fever or chills at this time. Patient denies any headache or dizziness, denies any chest pain or shortness of breath. Patient stated having coughing once in a while but not coughing up any sputum. Patient day denies any abdominal pain, nausea, vomiting, diarrhea or constipation. Nurse reported no acute concerns overnight. services delivery driver discussed discharge planning with home health care. Physical Exam Vital signs: Vital Signs 04/03/18 12:00 04/03/18 12:12 04/03/18 16:00 Temperature 97.9 F 97.1 F L Pulse Rate 99 H 99 H 81 Respiratory Rate 14 18 14 Blood Pressure 129/75 113/71 Pulse Oximetry 99 96 04/03/18 19:26 04/03/18 23:14 04/04/18 00:45 Temperature 97.9 F 97.6 F Pulse Rate 94 H 79 85 Respiratory Rate 18 18 18 Blood Pressure 115/60 125/78 Pulse Oximetry 95 95 04/04/18 04:16 04/04/18 08:00 04/04/18 08:17 Temperature 97.4 F L Pulse Rate 92 H 86 92 H Respiratory Rate 18 16 18 Blood Pressure 112/76 Pulse Oximetry 95 Intake & Output 04/03/18 04/04/18 04/04/18 18:59 06:59 18:59 Intake Total 200 / 200 580 / 580 100 / 100 Balance 200 / 200 580 / 580 100 / 100 Weight 57.9 kg Intake: IV 200 / 200 100 / 100 100 / 100 Maxipime Inj 2,000 MG In NS Inj 200 / 200 100 / 100 100 / 100 100 ML @ 200 mls/hr IV.SIG Q8H KELLI Rx#:[id number] Oral 480 / 480 Other: # Voids 4 Date of Last Bowel Movement 04/03/18 04/04/18 04/04/18 # Bowel Movements 1 2 Narrative: GENERAL: Well-developed, well-nourished -[place] male, laying in bed in no apparent distress SKIN: Warm and dry. Left chest port intact HEAD: Atraumatic. Normocephalic. EYES: Pupils equal and round. No scleral icterus. No injection or drainage. NECK: Trachea midline. No JVD. CARDIOVASCULAR: Regular rate and rhythm. RESPIRATORY: No accessory muscle use. Clear to auscultation. Breath sounds equal bilaterally. No wheezes or rhonchi GASTROINTESTINAL: Abdomen soft, non-tender, nondistended. Hepatic and splenic margins not palpable. MUSCULOSKELETAL: Extremities without clubbing, cyanosis, or edema. No obvious deformities. NEUROLOGICAL: Awake and alert. No obvious cranial nerve deficits. Motor grossly within normal limits. Five out of 5 muscle strength in the arms and legs. Normal speech. PSYCHIATRIC: Appropriate mood and affect; insight and judgment normal. 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 at discharge -Monitor CBC and CMP COPD versus pneumonia Shortness of breath -Chest CTA negative for PE but shows small focal area of coarse infiltrate in the anterior left upper lobe concerning for early pneumonia -ABG 7.42/32/118/20 -Continue IV cefepime and azithromycin po -Continue duo nebs -wean down IV steroids -Blood cultures: No growth in 3 days, follow cultures -Patient's process excellence manager, Dr. 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 And check for cortisol level and ACTH stimulation test as an outpatient -Cortisol level unremarkable Chronic pain Continue home Percocet as needed Transaminitis -AST and ALT increasing -monitor LFT's DVT prophylaxis: Lovenox
--- NOTE | 2018-04-04 18:07 | P.PN ---
Subjective Interval history: ALER AMBULATING NAD Physical Exam Vital signs: Vital Signs 04/03/18 19:26 04/03/18 23:14 04/04/18 00:45 Temperature 97.9 F 97.6 F Pulse Rate 94 H 79 85 Respiratory Rate 18 18 18 Blood Pressure 115/60 125/78 Pulse Oximetry 95 95 04/04/18 04:16 04/04/18 08:00 04/04/18 08:17 Temperature 97.4 F L Pulse Rate 92 H 86 92 H Respiratory Rate 18 16 18 Blood Pressure 112/76 Pulse Oximetry 95 04/04/18 11:49 04/04/18 12:00 04/04/18 14:57 Temperature 97.4 F L Pulse Rate 79 87 80 Respiratory Rate 18 18 16 Blood Pressure 120/69 Pulse Oximetry 98 04/04/18 16:00 Temperature 97.7 F Pulse Rate 84 Respiratory Rate 18 Blood Pressure 109/66 Pulse Oximetry 96 Intake & Output 04/03/18 04/04/18 04/04/18 18:59 06:59 18:59 Intake Total 200 / 200 580 / 580 200 / 200 Balance 200 / 200 580 / 580 200 / 200 Weight 57.9 kg Intake: IV 200 / 200 100 / 100 200 / 200 Maxipime Inj 2,000 MG In NS Inj 200 / 200 100 / 100 200 / 200 100 ML @ 200 mls/hr IV.SIG Q8H KELLI Rx#:[id number] Oral 480 / 480 Other: # Voids 4 Date of Last Bowel Movement 04/03/18 04/04/18 04/04/18 # Bowel Movements 1 2 Narrative: Gen.: No acute distress Head: Normocephalic. Atraumatic. EENT: Pupils equal round and reactive to light. throat- no exudates Cardiovascular: Regular rhythm Respiratory: decreased breath sounds, no rales, no wheezes Abdomen: Soft, nontender, nondistended. No peritoneal signs. No edema. Skin: No obvious rashes or erythema. Neuro: Sensory and motor grossly intact. Cranial nerves II through XII grossly intact. Results - Labs CBC & Chem 7: 04/04/18 05:41 04/04/18 05:41 Laboratory Results - last 24 hr 04/04/18 04/04/18 05:41 05:41 WBC 8.4 RBC 2.84 L Hgb 9.0 L Hct 27.3 L MCV 95.9 MCH 31.6 MCHC 33.0 RDW 16.1 Plt Count 118 L MPV 9.1 Neut % (Auto) 91.8 H Lymph % (Auto) 2.7 L [place] % (Auto) 5.4 Eos % (Auto) 0.0 Baso % (Auto) 0.1 Neut # (Auto) 7.7 Lymph # (Auto) 0.2 L [place] # (Auto) 0.5 Eos # (Auto) 0.0 Baso # (Auto) 0.0 WBC Differential . Differential Comment Auto diff final Sodium 142 Potassium 4.6 Chloride 106 Carbon Dioxide 31.6 Anion Gap 4 L BUN 32 H Creatinine 1.17 Estimated GFR 62 L Random Glucose 124 H Calcium 8.3 L Total Bilirubin 0.9 AST 93 H ALT 115 H Alkaline Phosphatase 85 Total Protein 6.4 D Albumin 2.2 L Microbiology 03/31/18 20:17 Blood - Peripheral Aerobic Blood Culture - Preliminary No growth in 4 days 03/31/18 20:17 Blood - Peripheral Anaerobic Blood Culture - Preliminary No growth in 4 days 03/31/18 20:10 Blood - Peripheral Aerobic Blood Culture - Preliminary No growth in 4 days 03/31/18 20:10 Blood - Peripheral Anaerobic Blood Culture - Preliminary No growth in 4 days Assessment and Plan - Plan PNEUMONIA,IMPROVED LUNG CANCER COPD ACID REFLUX PLAN O2 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
[2018-04-05] MEDS: MethylPREDNISolone Sod Succinate Inj 125 MG/2 ML Vial IV.PUSH SCH ×2 (02:00→11:34)
[2018-04-05 06:01] LABS: Hematocrit 27.8 % (39.0-51.0); Hemoglobin 9.3 gm/dL (13.0-17.0); Lymph # (Auto) 0.3 th/mm3 (1.0-4.8); Mean Corpuscular HGB Conc 33.5 % (32.0-36.0); Mean Corpuscular Hemoglobin 32.2 pg (27.0-34.0); Mean Corpuscular Volume 96.2 fL (80.0-100.0); Mean Platelet Volume 9.1 fL (7.0-11.0); Mono # (Auto) 0.5 th/mm3 (0.0-0.9); Mono % (Auto) 7.1 % (0.0-8.0); Neut # (Auto) 6.7 th/mm3 (1.8-7.7); Neut % (Auto) 88.9 % (16.0-70.0); Platelet Count 111 th/mm3 (150-450); Red Blood Count 2.89 mil/mm3 (4.50-5.90); Red Cell Distribution Width 15.7 % (11.6-17.2); White Blood Count 7.6 th/mm3 (4.0-11.0)
[2018-04-05 06:10] LABS: INR 1.1 Ratio; Prothrombin Time 10.9 sec (9.8-11.6)
[2018-04-05 06:22] LABS: Alanine Aminotransferase 154 U/L (12-78); Albumin 2.2 g/dL (3.4-5.0); Anion Gap 5 meq/L (5-15); Aspartate Aminotransferase 108 U/L (15-37); Blood Urea Nitrogen 33 mg/dL (7-18); Calcium 8.6 mg/dL (8.5-10.1); Chloride 102 meq/L (98-107); Glomerular Filtration Rate 67 mL/min (>89); Glucose,Random 104 mg/dL (74-106); Potassium 4.9 meq/L (3.5-5.1); Sodium 142 meq/L (136-145)
[2018-04-05 06:24] LABS: Alkaline Phosphatase 100 U/L (45-117); Total Protein 6.5 g/dL (6.4-8.2)
[2018-04-05] MEDS: Azithromycin 250 MG Tablet PO SCH (09:12)
[2018-04-05] MEDS: Enoxaparin Inj 40 MG/0.4 ML Syringe SQ SCH (09:12)
[2018-04-05] MEDS: Senna/Docusate Sodium 8.6/50 MG Tablet PO SCH (09:12)
[2018-04-05] MEDS: Pantoprazole Sodium 20 MG DR Tablet PO SCH (09:12)
--- NOTE | 2018-04-05 09:57 | P.DS ---
DS: Providers Date of admission: 03/31/18 23:29 Primary care physician: Maximo Cavazos MD Consults: 04/01/18 01:51 Consult to Oncology Routine Consulting Provider: Danay Briceño Preferred Ocean Rescue Lieutenant:: Danay Briceño Patient known to:: Danay Briceño Reason for Consultation: Poss PNA and SOB in setting of lung ca Notified:: Service Spoke with:: KYM Date Notified:: 04/01/18 Time Notified:: 02:39 Ordering Provider: SANDHYA 04/01/18 01:52 Consult to Pulmonology Routine Consulting Provider: Syeda Landa Preferred Ocean [employer] Lieutenant:: Ollie Carson Patient known to:: Ollie Carson Reason for Consultation: SOB with poss PNA in setting of lung ca Notified:: Service Spoke with:: VENKATESH Date Notified:: 04/01/18 Time Notified:: 02:43 Comments:: DR LANDA COVERING FOR DR Mayelin CARSON Ordering Provider: SANDHYA Anticipated date of discharge: 04/05/18 Brief History from admission: 68-year-old male with a past medical history significant for hypertension, depression, 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 The patient reports he completed lung radiation in December and had prophylactic brain radiation approximately 2 weeks ago. He reports he has felt dizzy and short of breath since his last radiation appointment. He states today his shortness of breath was worse than normal and when he was walking to take out the trash he fell while experiencing vertigo. He is tachypneic during our interview. He complains of chronic back pain. He denies any chest pain. No cough. No fever/chills. No abdominal pain. No nausea/vomiting/diarrhea. No focal neurologic deficits. Patient update on day of discharge: Patient seen and examined laying in bed, stated breathing better denies any chest pain or shortness of breath. Patient stated he was walking around without a problem. Patient denies any fever or chills. Patient stated he is already to go home today. Patient denies any discomfort. Patient denies any headache or dizziness, denies any chest pain or shortness of breath, denies any abdominal pain, nausea, vomiting, diarrhea or constipation. Patient stated he has been eating well, and bowels are moving good. 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 at discharge -Monitor CBC and CMP -Changed to p.o. antibiotic and steroids antibiotics at discharge COPD versus pneumonia Shortness of breath -Chest CTA negative for PE but shows small focal area of coarse infiltrate in the anterior left upper lobe concerning for early pneumonia -ABG 7.42/32/118/20 -Continue IV cefepime and azithromycin po -Continue duo nebs -wean down IV steroids -Blood cultures: No growth in 3 days, follow cultures -Patient's high school business teacher, Dr. Carson consulted, appreciate assistance, follow-up chest x-ray and check PFT Small cell lung cancer -Chemotherapy completed in October -Radiation completed in December with prophylactic brain radiation completed 2 weeks ago -Patient complains of persistent vertigo, PT consult for eval and treat -Oncology consulted, appreciate assistance: Cleared for discharge, follow-up as an outpatient for possible restaging evaluation of limited stage small cell lung cancer. And check for cortisol level and ACTH stimulation test as an outpatient -Cortisol level unremarkable Chronic pain Continue home Percocet as needed Transaminitis -AST and ALT increasing -monitor LFT's DVT prophylaxis: Lovenox Time Spent with Patient Total time spent providing and/or coordinating discharge services: Exam Narrative Exam Narrative: GENERAL: Well-developed, well-nourished -[place] male, laying in bed in no apparent distress SKIN: Warm and dry. Left chest port intact HEAD: Atraumatic. Normocephalic. EYES: Pupils equal and round. No scleral icterus. No injection or drainage. NECK: Trachea midline. No JVD. CARDIOVASCULAR: Regular rate and rhythm. RESPIRATORY: No accessory muscle use. Clear to auscultation. Breath sounds equal bilaterally. No wheezes or rhonchi GASTROINTESTINAL: Abdomen soft, non-tender, nondistended. Hepatic and splenic margins not palpable. MUSCULOSKELETAL: Extremities without clubbing, cyanosis, or edema. No obvious deformities. NEUROLOGICAL: Awake and alert. No obvious cranial nerve deficits. Motor grossly within normal limits. Five out of 5 muscle strength in the arms and legs. Normal speech. PSYCHIATRIC: Appropriate mood and affect; insight and judgment normal Results Labs on day of discharge: Labs from last 24 hours 04/05/18 04/05/18 04/05/18 04:18 04:18 04:18 WBC 7.6 RBC 2.89 L Hgb 9.3 L Hct 27.8 L MCV 96.2 MCH 32.2 MCHC 33.5 RDW 15.7 Plt Count 111 L MPV 9.1 Neut % (Auto) 88.9 H Lymph % (Auto) 4.0 L [place] % (Auto) 7.1 Eos % (Auto) 0.0 Baso % (Auto) 0.0 Neut # (Auto) 6.7 Lymph # (Auto) 0.3 L [place] # (Auto) 0.5 Eos # (Auto) 0.0 Baso # (Auto) 0.0 WBC Differential . Differential Comment Auto diff final PT 10.9 INR 1.1 Sodium 142 Potassium 4.9 Chloride 102 Carbon Dioxide 35.0 H Anion Gap 5 BUN 33 H Creatinine 1.10 Estimated GFR 67 L Random Glucose 104 Calcium 8.6 Total Bilirubin 0.9 AST 108 H ALT 154 H Alkaline Phosphatase 100 Total Protein 6.5 Albumin 2.2 L Preliminary micro results at discharge 03/31/18 20:17 Aerobic Blood Culture - Preliminary Blood - Peripheral No growth in 4 days Anaerobic Blood Culture - Preliminary No growth in 4 days 03/31/18 20:10 Aerobic Blood Culture - Preliminary Blood - Peripheral No growth in 4 days Anaerobic Blood Culture - Preliminary No growth in 4 days Impressions ITS Impressions Chest X-Ray 03/31/18 19:13 CONCLUSION: Stable apparent scarring in the right lung with no evidence of acute pneumonia. Chest CTA 03/31/18 20:22 CONCLUSION: 1. No evidence of pulmonary embolism. 2. New small focal area of coarse infiltrate in the anterior left upper lobe could represent early pneumonia. The consolidative opacity remaining in the right upper lobe majority of which appears to represent scarring. 3. New small right pleural effusion. 4. Underlying emphysema. Line small atrophic right kidney without change. Discharge Plan Discharge Disposition Patient Disposition: 01 Discharge Home Discharge Condition Condition: Stable Discharge Order Discharge Orders: Discharge Order (Routine); Ordered 04/05/18 Ordered By: Bree Deutsch Discharge Details Anticipated Discharge Date: 04/05/18 Discharge Comment: discharge when cleared with Hospital Attendant- Dr Layne Physicians Team ED Provider: Flynn Rizvi ED Midlevel Provider: Carolyn Retana Primary Care Provider: Maximo Cavazos Attending Provider: Lorna Steele Other Providers: Danay Briceño ; Syeda Lanad Rxs /Orders / Referrals /Forms Prescriptions: New prednisone 5 mg tablets,dose pack See Label Instructions PO PER PKG DIR Qty: 48 RF: 0 budesonide-formoterol [Symbicort] 160-4.5 mcg/actuation HFA aerosol inhaler 2 inh INHALATION BID Qty: 10.2 RF: 0 levofloxacin [Levaquin] 500 mg tablet 500 mg PO DAILY 5 Days Qty: 5 RF: 0 Continue alprazolam [Xanax] 1 mg Tablet 1 mg PO BID PRN (Reason: Anxiety) RF: 0 hydrocodone-acetaminophen 10-325 mg Tablet 1 tab PO Q6H PRN (Reason: Acute Pain) RF: 0 Referrals: Maximo Cavazos MD [Primary Care Provider] - See Instructions (follow up in 3 days ) Danay Briceño MD [Physician] - See Instructions (follow up in 1 week) Syeda Landa MD [Physician] - See Instructions (follow up in 2 weeks ) Discharge Instructions Patient Printed Instructions: Hydrocodone/Acetaminophen (By mouth), Alprazolam (By mouth), Pneumonia (DC) Discharge Interventions Interventions: Discharge Planning - Case Management Last Done: 04/04/18 08:33 Status ED Status: Left Department
== END 2018-04-05 12:03 | disposition home or self-care (01) | DRG 194 ==
LOC: NEPE 17:12 → NEDA 23:29 → N06 04-01 04:05
PROVIDERS: ADMIT Family Medicine; ATTEND Family Medicine
CPT/HCPCS: 36600; 71010; 71045; 71275; 80048; 80053; 81001; 82533; 82550; 82805; 83605; 83690; 83735; 84484; 85025; 85610; 87040; 87275; 87276; 87804; 90761; 90765; 90775; 93005; 94060; 94640; 94664; 94665; 96361; 96365; 96375; 97162; 99285; J0456; J0692; J1100; J1642; J1650; J2405; J2930; J7030; J7050; Q9967